=== PATIENT | female | born 1955 | race Caucasian/White ===

== ENCOUNTER → 2017-02-22 | Outpatient (CLI) | payer MEDICARE ==
--- NOTE | 2017-02-23 08:58 | MM ---
Reason for exam: additional evaluation requested from prior study. Last mammogram was performed 1 year ago. History: Patient is postmenopausal, has history of bilateral breast cancer at age 57, and has history of high-risk lesion on a previous biopsy at age 45. Family history of breast cancer in maternal grandmother and breast cancer in mother. Malignant left breast needle localization of both breasts, May 23, 2013. Malignant US LT VAD breast biopsy of the left breast, May 08, 2013. High risk lumpectomy of the left breast, April 19, 2001. Physical Findings: Nurse did not find any significant physical abnormalities on exam. MG Diagnostic Mammo w CAD CHELSEA Bilateral CC and MLO view(s) were taken. Prior study comparison: February 19, 2016, bilateral MG diagnostic mammo w CAD CHELSEA. February 21, 2015, right breast MG follow up RT no charge. The breast tissue is heterogeneously dense. This may lower the sensitivity of mammography. Marked deformity in the left breast. from previous lumpectomy. No suspicious calcifications or mass. These results were verbally communicated with the patient and result sheet given to the patient on 02/22/17. ASSESSMENT: Benign, BI-RAD 2 RECOMMENDATION: Follow-up diagnostic mammogram of both breasts in 1 year.
== END | disposition home or self-care (01) ==
LOC: RADMAMWWP 14:42
PROVIDERS: ATTEND Family Medicine
DX: Z12.31 Encounter for screening mammogram for malignant neoplasm of breast (principal); Z85.3 Personal history of malignant neoplasm of breast

== ENCOUNTER → 2018-03-17 | Outpatient (CLI) | payer MEDICARE ==
--- NOTE | 2018-03-19 09:48 | MM ---
Reason for exam: additional evaluation requested from prior study. Last mammogram was performed 1 year and 1 month ago. History: Patient is postmenopausal, has history of bilateral breast cancer at age 57, and has history of high-risk lesion on a previous biopsy at age 45. Family history of breast cancer in maternal grandmother and breast cancer in mother. Malignant left breast needle localization of both breasts, May 23, 2013. Malignant US LT VAD breast biopsy of the left breast, May 08, 2013. High risk lumpectomy of the left breast, April 19, 2001. Physical Findings: Nurse did not find any significant physical abnormalities on exam. MG Diagnostic Mammo w CAD CHELSEA Bilateral CC and MLO view(s) were taken. Prior study comparison: February 22, 2017, bilateral MG diagnostic mammo w CAD CHELSEA. February 19, 2016, bilateral MG diagnostic mammo w CAD CHELSEA. February 21, 2015, right breast MG follow up RT no charge. The breast tissue is heterogeneously dense. This may lower the sensitivity of mammography. No discrete abnormality. Prominent distortion at incised site left breast. These results were verbally communicated with the patient and result sheet given to the patient on 03/17/18. ASSESSMENT: Benign, BI-RAD 2 RECOMMENDATION: Follow-up diagnostic mammogram of both breasts in 1 year.
== END | disposition home or self-care (01) ==
LOC: RADMAMWWP 14:13
DX: Z08 Encounter for follow-up examination after completed treatment for malignant neoplasm (principal); Z85.3 Personal history of malignant neoplasm of breast
CPT/HCPCS: 77066

== ENCOUNTER 2020-02-26 18:19 | Inpatient (IN) | payer MEDICARE ==
--- NOTE | 2020-02-26 19:58 | ED ---
Recheck HPI - General Source: patient Mode of arrival: ambulatory Limitations: no limitations <Constanza Carrasquillo - Last Filed: 02/27/20 00:27> <Neeta Benavides - Last Filed: 03/02/20 08:23> - General Chief Complaint: Recheck/Abnormal Lab/Rx Stated Complaint: Low blood pressure Time Seen by Provider: 02/26/20 18:57 - History of Present Illness Initial Comments: 64 year-old female patient presents to the emergency department today for evaluation of weakness, confusion, shortness of breath. Patient has been feeli ng unwell for the last couple of days. States that she has been having some confusion, and feels foggy. She does report shortness of breath, occasional cough. Denies sputum production. She has had low-grade fevers around 99. She is also reporting some abdominal discomfort. Denies vomiting or diarrhea. Denies sore throat or congestion. She reports occasional dysuria. Denies urinary frequency or urgency. Denies any recent falls or head injury. Patient denies any recent rash, chest pain, back pain, numbness, tingling, dizziness, weakness, headache, visual changes, or any other complaints. (Constanza Carrasquillo) - Related Data Home Medications Medication Instructions Recorded Confirmed Acetaminophen [Tylenol] 650 mg PO TID@0800,1400,199902/26/20 02/26/20 Atorvastatin Calcium [Lipitor] 40 mg PO HS@199902/26/20 02/26/20 Calcium Carbonate/Vitamin D3 1 tab PO BID@0800,139902/26/20 02/26/20 [Calcium 600-Vit D3 400 Tablet] Chlorhexidine Gluconate [Peridex] 15 ml PO BID@0800,199902/26/20 02/26/20 Enalapril Maleate [Vasotec] 10 mg PO HS@199902/26/20 02/26/20 FLUoxetine HCL [PROzac] 20 mg PO DAILY@79902/26/20 02/26/20 Imipramine [Tofranil] 10 mg PO TID@0800,1400,199902/26/20 02/26/20 Levothyroxine Sodium 200 mcg PO DAILY@79902/26/20 02/26/20 Multivitamins, Thera [Multivitamin 1 tab PO DAILY@79902/26/2002/25/20 (formulary)] Niacin [Niacin ER] 500 mg PO HS@199902/26/20 02/26/20 Nystatin [Nystop] 1 applic TOPICAL BID PRN 02/26/20 02/26/20 Oxybutynin ER [Ditropan Xl] 15 mg PO HS@199902/26/20 02/26/20 Allergies Allergy/AdvReac Type Severity Reaction Status Date / Time No Known Allergies Allergy Verified 02/26/20 22:22 Review of Systems ROS Other: All systems not noted in ROS Statement are negative. <Constanza Carrasquillo - Last Filed: 02/27/20 00:27> ROS Other: All systems not noted in ROS Statement are negative. <Neeta Benavides - Last Filed: 03/02/20 08:23> ROS Statement: Those systems with pertinent positive or pertinent negative responses have been documented in the HPI. Past Medical History Past Medical History: Cancer, Hypertension Additional Past Medical History / Comment(s): closed head injury History of Any Multi-Drug Resistant Organisms: None Reported Additional Past Surgical History / Comment(s): left breast surgery, thyroid removed Past Psychological History: No Psychological Hx Reported Smoking Status: Current every day smoker Past Alcohol Use History: Daily Past Drug Use History: None Reported <Constanza Carrasquillo - Last Filed: 02/27/20 00:27> General Exam Limitations: no limitations General appearance: alert, in no apparent distress, other (This is a well- developed, well-nourished adult female patient in no acute distress. Vital signs upon presentation are temperature 99.5F, pulse 105, respirations 18, blood pressure 122/69, pulse ox 95% on room air.) Eye exam: Present: normal appearance, PERRL, EOMI. Absent: scleral icterus, conjunctival injection, periorbital swelling ENT exam: Present: normal exam, normal oropharynx, mucous membranes moist Respiratory exam: Present: normal lung sounds bilaterally. Absent: respiratory distress, wheezes, rales, rhonchi, stridor Cardiovascular Exam: Present: regular rate, normal rhythm, tachycardia, normal heart sounds. Absent: systolic murmur, diastolic murmur, rubs, gallop, clicks GI/Abdominal exam: Present: soft, tenderness (Generalized tenderness), normal bowel sounds. Absent: distended, guarding, rebound, rigid Neurological exam: Present: alert, oriented X3, CN II-XII intact, other (Left sided paralysis - chronic.) Psychiatric exam: Present: normal affect, normal mood Skin exam: Present: warm, dry, intact, normal color. Absent: rash <Constanza Carrsaquillo - Last Filed: 02/27/20 00:27> Course <Constanza Carrasquillo - Last Filed: 02/27/20 00:27> Vital Signs 02/26/20 02/26/20 02/26/20 18:23 22:00 23:59 Temperature 99.5 F 100.4 F H 98.3 F Pulse Rate 105 H 96 103 H Respiratory 18 19 17 Rate Blood Pressure 122/69 139/74 126/77 O2 Sat by Pulse 95 96 95 Oximetry - Reevaluation(s) Reevaluation #1: 02/26/20 22:01 Patient diagnosed as sepsis at 2200. (Constanza Carrasquillo) Medical Decision Making - Lab Data Result diagrams: 02/26/20 20:30 02/26/20 20:30 - Radiology Data Radiology results: report reviewed, image reviewed <Constanza Carrasquillo - Last Filed: 02/27/20 00:27> - Lab Data Result diagrams: 03/01/20 16:14 03/01/20 16:14 <Neeta Benavides - Last Filed: 03/02/20 08:23> - Medical Decision Making 64 year-old female patient presents to the emergency department today with multiple complaints including confusion, weakness, shortness of breath, and abdominal pain. Physical examination did reveal generalized abdominal tenderness. She is alert and oriented at this time. She does have low-grade fever from 99-100.4F. Labs reviewed and reveal white blood cell count of 26.8, neutrophils 24.6, BUN 37, lactic acid is 2.2, AST mildly elevated at 70, ALT 39. Lipase is 2406. Urinalysis shows 2+ protein, trace ketones, small amount of blood, moderate esterase, 19 white blood cells, rare amorphous sediment, few urine bacteria, hyaline casts 41, many urine mucus. CT abdomen and pelvis was obtained and showed evidence for pancreatitis, there is a large gallstone but no evidence for dilated ducts or cholecystitis. Chest x-ray did show evidence for right lower lobe pneumonia. I did discuss findings and results with the patient. She will be admitted to the hospital, we will provide IV hydration, IV antibiotics which include Levaquin and Zosyn as she does currently live in a long-term care facility. We will obtain ultrasound of the right upper quadrant in the morning to further evaluate the pancreatitis. Patient verbalizes understanding and agrees this plan. (Constanza Carrasquillo) I was available for consultation in the emergency department. The history and physical exam were done by the midlevel provider. I was consulted for this patients care. I reviewed the case with the midlevel provider and based on their presentation of the patient, I agree with the assessment, medical decision making and plan of care as documented. Chart was dictated using [employer] dictation software. Attempts were made to correct any dictation errors however some typographical errors may persist. Patient was seen during the [facility] emergency due to the Covid-19 pandemic. (Neeta Benavides) - Lab Data Lab Results 02/26/20 02/26/20 02/26/20 Range/Units 20:30 20:30 20:30 WBC 26.8 H (3.8-10.6) k/uL RBC 4.63 (3.80-5.40) m/uL Hgb 15.2 (11.4-16.0) gm/dL Hct 47.0 H (34.0-46.0) % MCV 101.6 H (80.0-100.0) fL MCH 32.9 (25.0-35.0) pg MCHC 32.4 (31.0-37.0) g/dL RDW 14.2 (11.5-15.5) % Plt Count 263 (150-450) k/uL Neutrophils % 92 % Lymphocytes % 2 % Monocytes % 4 % Eosinophils % 0 % Basophils % 0 % Neutrophils # 24.6 H (1.3-7.7) k/uL Lymphocytes # 0.6 L (1.0-4.8) k/uL Monocytes # 1.2 H (0-1.0) k/uL Eosinophils # 0.1 (0-0.7) k/uL Basophils # 0.1 (0-0.2) k/uL Macrocytosis Slight PT 10.1 (9.0-12.0) sec INR 1.0 (<1.2) APTT 22.7 (22.0-30.0) sec Sodium (137-145) mmol/L Potassium (3.5-5.1) mmol/L Chloride (98-107) mmol/L Carbon Dioxide (22-30) mmol/L Anion Gap mmol/L BUN (7-17) mg/dL Creatinine (0.52-1.04) mg/dL Est GFR (CKD-EPI)AfAm (>60 ml/min/1.73 sqM) Est GFR (CKD-EPI)NonAf (>60 ml/min/1.73 sqM) Glucose (74-99) mg/dL Lactic Ac Sepsis Rflx Plasma Lactic Acid Anthony (0.7-2.0) mmol/L Calcium (8.4-10.2) mg/dL Total Bilirubin (0.2-1.3) mg/dL AST (14-36) U/L ALT (4-34) U/L Alkaline Phosphatase (38-126) U/L Total Protein (6.3-8.2) g/dL Albumin (3.5-5.0) g/dL Lipase (23-300) U/L Urine Color Yellow Urine Appearance Cloudy H (Clear) Urine pH 5.5 (5.0-8.0) Ur Specific Nada 1.038 H (1.001-1.035) Urine Protein 2+ H (Negative) Urine Glucose (UA) Negative (Negative) Urine Ketones Trace H (Negative) Urine Blood Small H (Negative) Urine Nitrite Negative (Negative) Urine Bilirubin Negative (Negative) Urine Urobilinogen 2.0 (<2.0) mg/dL Ur Leukocyte Esterase Moderate H (Negative) Urine RBC 1 (0-5) /hpf Urine WBC 19 H (0-5) /hpf Ur Squamous Epith Cells 1 (0-4) /hpf Amorphous Sediment Rare H (None) /hpf Urine Bacteria Few H (None) /hpf Hyaline Casts 41 H (0-2) /lpf Urine Mucus Many H (None) /hpf 02/26/20 02/26/20 02/26/20 Range/Units 20:30 20:30 20:30 WBC (3.8-10.6) k/uL RBC (3.80-5.40) m/uL Hgb (11.4-16.0) gm/dL Hct (34.0-46.0) % MCV (80.0-100.0) fL MCH (25.0-35.0) pg MCHC (31.0-37.0) g/dL RDW (11.5-15.5) % Plt Count (150-450) k/uL Neutrophils % % Lymphocytes % % Monocytes % % Eosinophils % % Basophils % % Neutrophils # (1.3-7.7) k/uL Lymphocytes # (1.0-4.8) k/uL Monocytes # (0-1.0) k/uL Eosinophils # (0-0.7) k/uL Basophils # (0-0.2) k/uL Macrocytosis PT (9.0-12.0) sec INR (<1.2) APTT (22.0-30.0) sec Sodium 137 (137-145) mmol/L Potassium 4.2 (3.5-5.1) mmol/L Chloride 104 (98-107) mmol/L Carbon Dioxide 23 (22-30) mmol/L Anion Gap 10 mmol/L BUN 37 H (7-17) mg/dL Creatinine 1.01 (0.52-1.04) mg/dL Est GFR (CKD-EPI)AfAm 67 (>60 ml/min/1.73 sqM) Est GFR (CKD-EPI)NonAf 58 (>60 ml/min/1.73 sqM) Glucose 156 H (74-99) mg/dL Lactic Ac Sepsis Rflx Plasma Lactic Acid Anthony 2.2 H* (0.7-2.0) mmol/L Calcium 9.6 (8.4-10.2) mg/dL Total Bilirubin 0.9 (0.2-1.3) mg/dL AST 70 H (14-36) U/L ALT 39 H (4-34) U/L Alkaline Phosphatase 126 (38-126) U/L Total Protein 6.7 (6.3-8.2) g/dL Albumin 4.1 (3.5-5.0) g/dL Lipase 2406 H (23-300) U/L Urine Color Urine Appearance (Clear) Urine pH (5.0-8.0) Ur Specific Nada (1.001-1.035) Urine Protein (Negative) Urine Glucose (UA) (Negative) Urine Ketones (Negative) Urine Blood (Negative) Urine Nitrite (Negative) Urine Bilirubin (Negative) Urine Urobilinogen (<2.0) mg/dL Ur Leukocyte Esterase (Negative) Urine RBC (0-5) /hpf Urine WBC (0-5) /hpf Ur Squamous Epith Cells (0-4) /hpf Amorphous Sediment (None) /hpf Urine Bacteria (None) /hpf Hyaline Casts (0-2) /lpf Urine Mucus (None) /hpf 02/26/20 Range/Units 21:47 WBC (3.8-10.6) k/uL RBC (3.80-5.40) m/uL Hgb (11.4-16.0) gm/dL Hct (34.0-46.0) % MCV (80.0-100.0) fL MCH (25.0-35.0) pg MCHC (31.0-37.0) g/dL RDW (11.5-15.5) % Plt Count (150-450) k/uL Neutrophils % % Lymphocytes % % Monocytes % % Eosinophils % % Basophils % % Neutrophils # (1.3-7.7) k/uL Lymphocytes # (1.0-4.8) k/uL Monocytes # (0-1.0) k/uL Eosinophils # (0-0.7) k/uL Basophils # (0-0.2) k/uL Macrocytosis PT (9.0-12.0) sec INR (<1.2) APTT (22.0-30.0) sec Sodium (137-145) mmol/L Potassium (3.5-5.1) mmol/L Chloride (98-107) mmol/L Carbon Dioxide (22-30) mmol/L Anion Gap mmol/L BUN (7-17) mg/dL Creatinine (0.52-1.04) mg/dL Est GFR (CKD-EPI)AfAm (>60 ml/min/1.73 sqM) Est GFR (CKD-EPI)NonAf (>60 ml/min/1.73 sqM) Glucose (74-99) mg/dL Lactic Ac Sepsis Rflx Y Plasma Lactic Acid Anthony (0.7-2.0) mmol/L Calcium (8.4-10.2) mg/dL Total Bilirubin (0.2-1.3) mg/dL AST (14-36) U/L ALT (4-34) U/L Alkaline Phosphatase (38-126) U/L Total Protein (6.3-8.2) g/dL Albumin (3.5-5.0) g/dL Lipase (23-300) U/L Urine Color Urine Appearance (Clear) Urine pH (5.0-8.0) Ur Specific Nada (1.001-1.035) Urine Protein (Negative) Urine Glucose (UA) (Negative) Urine Ketones (Negative) Urine Blood (Negative) Urine Nitrite (Negative) Urine Bilirubin (Negative) Urine Urobilinogen (<2.0) mg/dL Ur Leukocyte Esterase (Negative) Urine RBC (0-5) /hpf Urine WBC (0-5) /hpf Ur Squamous Epith Cells (0-4) /hpf Amorphous Sediment (None) /hpf Urine Bacteria (None) /hpf Hyaline Casts (0-2) /lpf Urine Mucus (None) /hpf - Radiology Data Two-view x-ray of the chest is obtained. Report was reviewed in its entirety. Impression by Dr. Chamorro shows right lower lobe pneumonia that appears new compared to old exam. No heart failure seen. CT abdomen and pelvis with contrast obtained. Report is reviewed in its entirety. Impression by Dr. Chamorro shows large gallstone probably not changed compared to old exam. No dilated ducts. There is extensive inflammatory changes and fluid around the pancreas consistent with acute pancreatitis which is a significant change compared to old exam. There is clearing of the wall thickening and inflammatory changes around the transverse colon compared to old exam. There is colonic diverticulosis without signs of diverticulitis. (Constanza Carrasquillo) Disposition Decision to Admit Reason: Admit from EC Decision Date: 02/26/20 Decision Time: 23:07 <Constanza Carrasquillo - Last Filed: 02/27/20 00:27> <Neeta Benavides - Last Filed: 03/02/20 08:23> Clinical Impression: Pancreatitis, Pneumonia, Urinary tract infection Disposition: ADMITTED IP TO THIS [facility] Condition: Serious
[2020-02-26 20:40] LABS: Basophils # (A) 0.1 k/uL (0-0.2); Basophils % (A) 0 %; Eosinophils # (A) 0.1 k/uL (0-0.7); Eosinophils % (A) 0 %; HGB 15.2 gm/dL (11.4-16.0); Lymphocytes # (A) 0.6 k/uL (1.0-4.8); Lymphocytes % (A) 2 %; MCH 32.9 pg (25.0-35.0); MCHC 32.4 g/dL (31.0-37.0); MCV 101.6 fL (80.0-100.0); Macrocytosis Slight; Mean Platelet Volume 8.3; Monocytes # (A) 1.2 k/uL (0-1.0); Monocytes % (A) 4 %; Neutrophils # (A) 24.6 k/uL (1.3-7.7); Neutrophils % (A) 92 %; Platelet Count 263 k/uL (150-450); RBC 4.63 m/uL (3.80-5.40); RDW 14.2 % (11.5-15.5); WBC 26.8 k/uL (3.8-10.6)
[2020-02-26 20:47] LABS: Albumin 4.1 g/dL (3.5-5.0); Calcium 9.6 mg/dL (8.4-10.2); Potassium 4.2 mmol/L (3.5-5.1); Total Bilirubin 0.9 mg/dL (0.2-1.3); Total Protein 6.7 g/dL (6.3-8.2)
[2020-02-26] MEDS: SODIUM CHLORIDE 0.9% 500 ML 500 ML IV SCH (20:47)
[2020-02-26 20:54] LABS: Partial Thromboplastin Time 22.7 sec (22.0-30.0); Prothrombin Time 10.1 sec (9.0-12.0)
--- NOTE | 2020-02-26 21:47 | XR ---
EXAMINATION TYPE: XR chest 2V DATE OF EXAM: 02/26/2020 COMPARISON: 05/19/2013 HISTORY: Fever TECHNIQUE: FINDINGS: There is some patchy airspace infiltrate in the right lower lobe. The other lung peña are clear. There is poor inspiration. There is no heart failure. There is no pleural effusion. There are no hilar masses. There are chest leads. IMPRESSION: There is right lower lobe pneumonia that appears new compared to old exam. No heart failu re seen.
[2020-02-26 21:59] LABS: Amorphous Sediment,Urine Rare /hpf; Appearance,Urine Cloudy (Clear); Bacteria,Urine Few /hpf; Bilirubin,Urine Negative (Negative); Blood,Urine Small (Negative); Color,Urine Yellow; Glucose,Urine (UA) Negative (Negative); Hyaline Casts,Urine 41 /lpf (0-2); Ketones,Urine Trace (Negative); Leukocyte Esterase,Urine Moderate (Negative); Mucus,Urine Many /hpf; Nitrite,Urine Negative (Negative); PH, Urine 5.5 (5.0-8.0); Protein,Urine 2+ (Negative); RBC,Urine 1 /hpf (0-5); Specific Gravity,Urine 1.038 (1.001-1.035); Squamous Epithelial Cell,Urine 1 /hpf (0-4); WBC,Urine 19 /hpf (0-5)
[2020-02-26] MEDS ORDERED: SODIUM CHLORIDE 0.9% 1,000 ML IV ONE (22:00)
[2020-02-26] MEDS ORDERED: ACETAMINOPHEN TAB 325 MG TAB PO STA (22:00)
--- NOTE | 2020-02-26 22:16 | CT ---
EXAMINATION TYPE: CT abdomen pelvis w con DATE OF EXAM: 02/26/2020 COMPARISON: 01/10/2010 HISTORY: Abdominal pain, patient poor historian. CT DLP: 1701.4 mGycm Automated exposure control for dose reduction was used. CONTRAST: Performed with IV Contrast, patient injected with 80ml mL of Isovue 300. There is some patchy infiltrate and atelectasis at the right lung base. Heart size is fairly normal. There is small right pleural effusion. Liver shows no focal defect. There is 3 x 2 cm rounded density that appears to be within the gallbladder that could be a gallstone. The bile ducts are not dilated. There is extensive fat stranding around the pancreas. There is fluid in the anterior pararenal space bilaterally. There is no adrenal mass. There is 1 cm cortical cyst upper pole left kidney. Bladder distends smooth ly. There is no inguinal hernia. There are multiple sigmoid diverticula. I see no sign of diverticuli tis. Kidneys show satisfactory contrast opacification. There is no hydronephrosis. There are multiple surgical clips at the cecum. There is apparent resection of some of the ascending colon. Small bowel is not dilated. Lumbar vertebra have normal alignment. There is vacuum disc at L4-5. There is no compression fracture . The bony pelvis appears intact. IMPRESSION: Large gallstone probably not changed compared to old exam. No dilated ducts. Extensive inflammatory changes and fluid around the pancreas consistent with acute pancreatitis which is a significant change compared to old exam. There is clearing of the wall thickening and inflammat ory changes around the transverse colon compared to old exam. There is colonic diverticulosis without sign of diverticulitis.
[2020-02-26] MEDS ORDERED: LEVOFLOXACIN 750MG-D5W PMX 750 MG in DEXTROSE/WATER 1 150ML.BAG IVPB STA (22:22)
[2020-02-26] MEDS ORDERED: PIPERACILLIN-TAZOBACTAM 3.375 GM in SODIUM CHLORIDE 0.9% 100 ML IVPB STA (22:22)
[2020-02-26] MEDS ORDERED: LEVOFLOXACIN 750MG-D5W PMX 750 MG in DEXTROSE/WATER 1 150ML.BAG IVPB SCH (22:30)
[2020-02-26] MEDS: SODIUM CHLORIDE 0.9% 1,000 ML IV SCH (22:51)
[2020-02-26] MEDS ORDERED: NALOXONE 0.4 MG/ML 1 ML VIAL IV PRN (23:05)
[2020-02-26] MEDS ORDERED: ACETAMINOPHEN TAB 325 MG TAB PO PRN (23:05)
[2020-02-27] MEDS: PIPERACILLIN-TAZOBACTAM 3.375 GM in SODIUM CHLORIDE 0.9% 100 ML IVPB SCH ×4 (00:57→23:44)
[2020-02-27 07:00] LABS: Glucose,Whole Blood 127 mg/dL (75-99)
[2020-02-27 07:36] LABS: Basophils % (A) 0 %; Eosinophils # (A) 0.1 k/uL (0-0.7); Eosinophils % (A) 0 %; HCT 44.6 % (34.0-46.0); HGB 14.8 gm/dL (11.4-16.0); Lymphocytes # (A) 0.8 k/uL (1.0-4.8); Lymphocytes % (A) 6 %; MCHC 33.1 g/dL (31.0-37.0); Macrocytosis Slight; Mean Platelet Volume 8.1; Monocytes # (A) 0.8 k/uL (0-1.0); Monocytes % (A) 6 %; Neutrophils # (A) 11.3 k/uL (1.3-7.7); Neutrophils % (A) 86 %; Platelet Count 226 k/uL (150-450); RBC 4.33 m/uL (3.80-5.40); RDW 14.1 % (11.5-15.5); WBC 13.2 k/uL (3.8-10.6)
[2020-02-27 08:00] LABS: ALT 32 U/L (4-34); AST 49 U/L (14-36); African American GFR (CKD) >90 (>60 ml/min/1.73 sqM); Albumin 3.3 g/dL (3.5-5.0); Alkaline Phosphatase 96 U/L (38-126); Anion Gap 7 mmol/L; Blood Urea Nitrogen 40 mg/dL (7-17); Calcium 8.2 mg/dL (8.4-10.2); Carbon Dioxide 22 mmol/L (22-30); Chloride 109 mmol/L (98-107); Glucose 129 mg/dL (74-99); Non-African American GFR(CKD) 85 (>60 ml/min/1.73 sqM); Potassium 3.8 mmol/L (3.5-5.1); Sodium 138 mmol/L (137-145); Total Bilirubin 0.9 mg/dL (0.2-1.3); Total Protein 5.8 g/dL (6.3-8.2)
--- NOTE | 2020-02-27 09:03 | US ---
EXAMINATION TYPE: US abdomen limited DATE OF EXAM: 02/27/2020 COMPARISON: CT 02/26/2020 CLINICAL HISTORY: 64-year-old Pancreatitis; Cholelithiasis. TECHNIQUE: Multiple images of the right upper quadrant are obtained. Findings EXAM MEASUREMENTS: Liver Length: 14.2 Gallbladder Wall: 0.2m CBD: 0.8mm Right Kidney: 9.9 x 5.1 x 5.4 Integration Solution Architect notes: Technically difficult exam performed portably on patient unable to cooperate. Pancreas: not visualized due to midline bowel gas Liver: heterogeneous echotexture Gallbladder: large stone, only a small amount of lumen seen. Evidence for sonographic Lemus's sign: Yes CBD: measures 0.8 cm Right Kidney: No hydronephrosis. IMPRESSION: 1. Technically limited exam due to patient's inability to cooperate and portable technique. 2. Large gallstone with positive sonographic Lemus sign. Further clinical correlation for any suspec chayo acute cholecystitis. 3. The pancreas is obscured by bowel gas. The changes of acute pancreatitis seen on recent CT are not well demonstrated by ultrasound. 4. Mildly dilated bile duct measuring up to 8 mm. Correlate with alkaline phosphatase and bilirubin l evels. 5. Heterogeneous echotexture of the liver may be on a technical basis or could reflect nonspecific he patocellular disease.
[2020-02-27] MEDS ORDERED: NYSTATIN 100,000 UNIT/GM POWD 15 GM TOPICAL PRN (10:54)
[2020-02-27 11:41] LABS: Glucose,Whole Blood 143 mg/dL (75-99)
--- NOTE | 2020-02-27 12:12 | P.GSCN ---
History of Present Illness Consult date: 02/27/20 Reason for Consult: Abdominal pain, abnormal gallbladder ultrasound History of present illness: This is a 64-year-old female who is admitted to Dr. Chavis service patient minute for abdominal pain. Patient's apparently has had pericarditis for some time. Her gallbladder ultrasound is abnormal. With evidence of a large gallstone. Past Medical History Past Medical History: Cancer, Hypertension Additional Past Medical History / Comment(s): closed head injury History of Any Multi-Drug Resistant Organisms: None Reported Additional Past Surgical History / Comment(s): left breast surgery, thyroid removed Past Psychological History: No Psychological Hx Reported Smoking Status: Current every day smoker Past Alcohol Use History: Daily Past Drug Use History: None Reported Medications and Allergies Home Medications Medication Instructions Recorded Confirmed Type Acetaminophen [Tylenol] 650 mg PO TID@0800,1400,199902/26/20 02/26/20 History Atorvastatin Calcium [Lipitor] 40 mg PO HS@199902/26/20 02/26/20 History Calcium Carbonate/Vitamin D3 1 tab PO BID@0800,1400 02/26/20 02/26/20 History [Calcium 600-Vit D3 400 Tablet] Chlorhexidine Gluconate [Peridex] 15 ml PO BID@0800,199902/26/20 02/26/20 History Enalapril Maleate [Vasotec] 10 mg PO HS@199902/26/20 02/26/20 History FLUoxetine HCL [PROzac] 20 mg PO DAILY@0802/26/20 02/26/20 History Imipramine [Tofranil] 10 mg PO TID@0800,1400,199902/26/20 02/26/20 History Levothyroxine Sodium 200 mcg PO DAILY@79902/26/20 02/26/20 History Multivitamins, Thera [Multivitamin 1 tab PO DAILY@79902/26/20 02/26/20 History (formulary)] Niacin [Niacin ER] 500 mg PO HS@199902/26/20 02/26/20 History Nystatin [Nystop] 1 applic TOPICAL BID PRN 02/26/20 02/26/20 History Oxybutynin ER [Ditropan Xl] 15 mg PO HS@199902/26/20 02/26/20 History Allergies Allergy/AdvReac Type Severity Reaction Status Date / Time No Known Allergies Allergy Verified 02/26/20 22:22 Surgical - Exam Vital Signs Temp Pulse Resp BP Pulse Ox 99.5 F 105 H 18 122/69 95 02/26/20 18:23 02/26/20 18:23 02/26/20 18:23 02/26/20 18:23 02/26/20 18:23 - General well developed, well nourished, no distress - Eyes PERRL - ENT normal pinna - Neck no masses - Respiratory normal expansion - Cardiovascular Rhythm: regular - Abdomen Mild tenderness there is no rebound or guarding. Abdomen: soft Results - Labs 02/27/20 07:12 02/27/20 07:12 Abnormal Lab Results - Last 24 Hours (Table) 02/26/20 02/26/20 02/26/20 Range/Units 20:30 20:30 20:30 WBC 26.8 H (3.8-10.6) k/uL Hct 47.0 H (34.0-46.0) % MCV 101.6 H (80.0-100.0) fL Neutrophils # 24.6 H (1.3-7.7) k/uL Lymphocytes # 0.6 L (1.0-4.8) k/uL Monocytes # 1.2 H (0-1.0) k/uL Chloride (98-107) mmol/L BUN 37 H (7-17) mg/dL Glucose 156 H (74-99) mg/dL POC Glucose (mg/dL) (75-99) mg/dL Plasma Lactic Acid Anthony (0.7-2.0) mmol/L Calcium (8.4-10.2) mg/dL AST 70 H (14-36) U/L ALT 39 H (4-34) U/L Total Protein (6.3-8.2) g/dL Albumin (3.5-5.0) g/dL Lipase (23-300) U/L Urine Appearance Cloudy H (Clear) Ur Specific [place] 1.038 H (1.001-1.035) Urine Protein 2+ H (Negative) Urine Ketones Trace H (Negative) Urine Blood Small H (Negative) Ur Leukocyte Esterase Moderate H (Negative) Urine WBC 19 H (0-5) /hpf Amorphous Sediment Rare H (None) /hpf Urine Bacteria Few H (None) /hpf Hyaline Casts 41 H (0-2) /lpf Urine Mucus Many H (None) /hpf 02/26/20 02/26/20 02/27/20 Range/Units 20:30 20:30 06:57 WBC (3.8-10.6) k/uL Hct (34.0-46.0) % MCV (80.0-100.0) fL Neutrophils # (1.3-7.7) k/uL Lymphocytes # (1.0-4.8) k/uL Monocytes # (0-1.0) k/uL Chloride (98-107) mmol/L BUN (7-17) mg/dL Glucose (74-99) mg/dL POC Glucose (mg/dL) 127 H (75-99) mg/dL Plasma Lactic Acid Anthony 2.2 H* (0.7-2.0) mmol/L Calcium (8.4-10.2) mg/dL AST (14-36) U/L ALT (4-34) U/L Total Protein (6.3-8.2) g/dL Albumin (3.5-5.0) g/dL Lipase 2406 H (23-300) U/L Urine Appearance (Clear) Ur Specific [place] (1.001-1.035) Urine Protein (Negative) Urine Ketones (Negative) Urine Blood (Negative) Ur Leukocyte Esterase (Negative) Urine WBC (0-5) /hpf Amorphous Sediment (None) /hpf Urine Bacteria (None) /hpf Hyaline Casts (0-2) /lpf Urine Mucus (None) /hpf 02/27/20 02/27/20 02/27/20 Range/Units 07:12 07:12 11:39 WBC 13.2 H (3.8-10.6) k/uL Hct (34.0-46.0) % MCV 103.0 H (80.0-100.0) fL Neutrophils # 11.3 H (1.3-7.7) k/uL Lymphocytes # 0.8 L (1.0-4.8) k/uL Monocytes # (0-1.0) k/uL Chloride 109 H (98-107) mmol/L BUN 40 H (7-17) mg/dL Glucose 129 H (74-99) mg/dL POC Glucose (mg/dL) 143 H (75-99) mg/dL Plasma Lactic Acid Anthony (0.7-2.0) mmol/L Calcium 8.2 L (8.4-10.2) mg/dL AST 49 H (14-36) U/L ALT (4-34) U/L Total Protein 5.8 L (6.3-8.2) g/dL Albumin 3.3 L (3.5-5.0) g/dL Lipase 1185 H (23-300) U/L Urine Appearance (Clear) Ur Specific [place] (1.001-1.035) Urine Protein (Negative) Urine Ketones (Negative) Urine Blood (Negative) Ur Leukocyte Esterase (Negative) Urine WBC (0-5) /hpf Amorphous Sediment (None) /hpf Urine Bacteria (None) /hpf Hyaline Casts (0-2) /lpf Urine Mucus (None) /hpf Microbiology - Last 24 Hours (Table) 02/26/20 20:30 Urine Culture - Preliminary Urine,Voided Diabetes panel 02/26/20 02/27/20 Range/Units 20:30 07:12 Sodium 137 138 (137-145) mmol/L Potassium 4.2 3.8 (3.5-5.1) mmol/L Chloride 104 109 H (98-107) mmol/L Carbon Dioxide 23 22 (22-30) mmol/L BUN 37 H 40 H (7-17) mg/dL Creatinine 1.01 0.74 (0.52-1.04) mg/dL Glucose 156 H 129 H (74-99) mg/dL Calcium 9.6 8.2 L (8.4-10.2) mg/dL AST 70 H 49 H (14-36) U/L ALT 39 H 32 (4-34) U/L Alkaline Phosphatase 126 96 (38-126) U/L Total Protein 6.7 5.8 L (6.3-8.2) g/dL Albumin 4.1 3.3 L (3.5-5.0) g/dL Calcium panel 02/26/20 02/27/20 Range/Units 20:30 07:12 Calcium 9.6 8.2 L (8.4-10.2) mg/dL Albumin 4.1 3.3 L (3.5-5.0) g/dL Pituitary panel 02/26/20 02/27/20 Range/Units 20:30 07:12 Sodium 137 138 (137-145) mmol/L Potassium 4.2 3.8 (3.5-5.1) mmol/L Chloride 104 109 H (98-107) mmol/L Carbon Dioxide 23 22 (22-30) mmol/L BUN 37 H 40 H (7-17) mg/dL Creatinine 1.01 0.74 (0.52-1.04) mg/dL Glucose 156 H 129 H (74-99) mg/dL Calcium 9.6 8.2 L (8.4-10.2) mg/dL Adrenal panel 02/26/20 02/27/20 Range/Units 20:30 07:12 Sodium 137 138 (137-145) mmol/L Potassium 4.2 3.8 (3.5-5.1) mmol/L Chloride 104 109 H (98-107) mmol/L Carbon Dioxide 23 22 (22-30) mmol/L BUN 37 H 40 H (7-17) mg/dL Creatinine 1.01 0.74 (0.52-1.04) mg/dL Glucose 156 H 129 H (74-99) mg/dL Calcium 9.6 8.2 L (8.4-10.2) mg/dL Total Bilirubin 0.9 0.9 (0.2-1.3) mg/dL AST 70 H 49 H (14-36) U/L ALT 39 H 32 (4-34) U/L Alkaline Phosphatase 126 96 (38-126) U/L Total Protein 6.7 5.8 L (6.3-8.2) g/dL Albumin 4.1 3.3 L (3.5-5.0) g/dL Assessment and Plan Assessment: Gretchen Farley Gallstone Patient will be scheduled for elective cholecystectomy once her pancreatitis has been resolved.
[2020-02-27] MEDS: IMIPRAMINE 10 MG TAB PO SCH ×2 (14:13→21:34)
[2020-02-27 17:25] LABS: Glucose,Whole Blood 135 mg/dL (75-99)
[2020-02-27] MEDS: SODIUM CHLORIDE 0.9% 1,000 ML IV SCH ×2 (19:13→19:14)
--- NOTE | 2020-02-27 19:45 | HP ---
HISTORY AND PHYSICAL CHIEF COMPLAINT: Weakness and confusion with shortness of breath. HISTORY OF PRESENT ILLNESS: This 64-year-old white female was a former patient of [employer] [employer] [facility] [employer] [facility] [employer]. We have not seen her since May. She was brought in with malaise, weakness, confusion and shortness of breath. She denied any fever or chills. She also was complaining of some abdominal pain. In the emergency room, her workup revealed a temperature of 100.4 and white count of 26,800 with a hemoglobin of 15.2. Platelets were normal. Urine demonstrated moderate leukocyte esterase and WBCs. There were hyaline casts present as well. Electrolytes were normal and BUN was 37 and creatinine 1.01. Blood sugar was 156. Lactic acid was 2.2. Review of systems is difficult because she has encephalopathy. 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 In the emergency room, there was also evidence of pancreatitis. Her CT of the abdomen demonstrated a gallstone with inflammation of the pancreas. Chest x-ray suggested that she may have minimal right lower lobe pneumonitis. EKG was unremarkable. Past medical history, family history, and personal and social histories are not known. She is NOT ALLERGIC TO ANY MEDICATION. According to her MAR, she has been on Tylenol 650, Prozac 20 mg a day, Tofranil 10 mg t.i.d., levothyroxine 0.2 mg, lisinopril 20 mg, nystatin powder twice a day, oxybutynin 15 mg at bedtime. PHYSICAL EXAMINATION: Temperature was 100.4 with a pulse of 105, respirations of 19 and blood pressure 122/69. In general she appeared to be slightly overweight and in no acute distress. Head, ears, eyes, nose, mouth and throat were normal. The chest demonstrated occasional rales. Cardiac exam demonstrated sinus rhythm and no murmurs or extra sounds. Abdomen was slightly improved, protuberant, soft, and she seemed to have some mild generalized tenderness to palpation. Bowel sounds were present. Extremities were normal. Neurologically she had left hemiparesis. Speech was slightly impaired. She is admitted to the hospital with the diagnoses: 1. Fever. 2. Right lower lobe pneumonitis. 3. Urinary tract infection. 4. Pancreatitis. 5. Cholelithiasis. 6. Status post cerebral trauma with left hemiparesis. PLAN: 1. Bed rest. 2. IV fluids. 3. Appropriate cultures. 4. Consult with Infectious Disease. MMROS / LUIS ENRIQUEN: [id number] /
--- NOTE | 2020-02-27 20:00 | PN ---
PROGRESS NOTE CHIEF COMPLAINT: Fever, pneumonitis, urinary tract infection and pancreatitis. HISTORY OF PRESENT ILLNESS: This lady seems stable. It is difficult to get a history as to how she is feeling. PHYSICAL EXAMINATION: Vital signs are normal. She is not febrile at this time. She seems to be awake and alert. Chest is clear. Cardiac exam is normal. Abdomen is soft and nontender. Paralysis is the same on the left. IMPRESSION: 1. Fever of unknown origin. 2. Pneumonitis. 3. Urinary tract infection. 4. Pancreatitis. 5. Cholelithiasis. PLAN: 1. Continue with IV fluids. 2. Infectious disease consult. 3. Advance diet to regular. MMODL / IJN: [id number] /
[2020-02-27 20:07] LABS: Glucose,Whole Blood 169 mg/dL (75-99)
[2020-02-27] MEDS: LEVOFLOXACIN 750MG-D5W PMX 750 MG in DEXTROSE/WATER 1 150ML.BAG IVPB SCH (20:44)
[2020-02-27] MEDS: OXYBUTYNIN 15 MG TAB.ER.24 PO SCH (20:47)
[2020-02-27] MEDS: lisinopriL 20 MG TAB PO SCH (20:47)
--- NOTE | 2020-02-28 00:01 | P.CONS ---
History of Present Illness - Reason for Consult Consult date: 02/27/20 urinary tract infection and possible cholecystitis Requesting physician: Taran Chavis - Chief Complaint not feeling well abdominal pain x few days - History of Present Illness patient is 64 year female presented to the ER yesterday she complains of generalized not feeling well feeling foggy and abdominal discomfort patient still has been going on for a few days before she was in the hospital patient abdominal pain is mostly in the upper abdominal area and describing it to be more of a sharp at times dull aching about 5-6 out of 10 and no radiation is felt nauseated but no vomiting denies any diarrhea did have a low-grade fever no chest pain shortness of breath or cough. The symptom the patient was evaluated by the ER physician on arrival to the but to 100.4 patient did have elevated white count of 26,000, CT of abdominal pelvis was suggestive of large gallstone and pancreatitis and ultrasound was suspicious for cholecystitis patient also matias ve a positive UA but not significant urinary symptoms patient was started on Zosyn alone but has been admitted to the hospital infectious disease was consulted for further management of antibiotic therapy Review of Systems Positive point has been mentioned in the HPI rest of the systems are negative Past Medical History Past Medical History: Cancer, Hypertension Additional Past Medical History / Comment(s): closed head injury History of Any Multi-Drug Resistant Organisms: None Reported Additional Past Surgical History / Comment(s): left breast surgery, thyroid removed Past Psychological History: No Psychological Hx Reported Smoking Status: Current every day smoker Past Alcohol Use History: Daily Past Drug Use History: None Reported Medications and Allergies Home Medications Medication Instructions Recorded Confirmed Type Acetaminophen [Tylenol] 650 mg PO TID@0800,1399,199902/26/20 02/26/20 History Atorvastatin Calcium [Lipitor] 40 mg PO HS@199902/26/20 02/26/20 History Calcium Carbonate/Vitamin D3 1 tab PO BID@0800,1400 02/26/20 02/26/20 History [Calcium 600-Vit D3 400 Tablet] Chlorhexidine Gluconate [Peridex] 15 ml PO BID@799,199902/26/20 02/26/20 History Enalapril Maleate [Vasotec] 10 mg PO HS@199902/26/20 02/26/20 History FLUoxetine HCL [PROzac] 20 mg PO DAILY@0802/26/20 02/26/20 History Imipramine [Tofranil] 10 mg PO TID@0800,1400,199902/26/20 02/26/20 History Levothyroxine Sodium 200 mcg PO DAILY@0800 02/26/20 02/26/20 History Multivitamins, Thera [Multivitamin 1 tab PO DAILY@0800 02/26/20 02/26/20 History (formulary)] Niacin [Niacin ER] 500 mg PO HS@199902/26/20 02/26/20 History Nystatin [Nystop] 1 applic TOPICAL BID PRN 02/26/20 02/26/20 History Oxybutynin ER [Ditropan Xl] 15 mg PO HS@199902/26/20 02/26/20 History Allergies Allergy/AdvReac Type Severity Reaction Status Date / Time No Known Allergies Allergy Verified 02/26/20 22:22 Physical Exam Vitals: Vital Signs Temp Pulse Pulse Resp BP BP Pulse Ox 02/27/20 08:00 88 18 02/27/20 06:54 98.7 F 88 18 148/81 92 L 02/27/20 00:41 98.4 F 95 28 H 109/73 93 L 02/26/20 23:59 98.3 F 103 H 17 126/77 95 02/26/20 22:00 100.4 F H 96 19 139/74 96 02/26/20 18:23 99.5 F 105 H 18 122/69 95 Intake and Output 02/26/20 02/27/20 02/27/20 22:59 06:59 14:59 Output Total 300 Balance -300 Output: Urine 300 Other: Weight 84.368 kg 84.368 kg GENERAL DESCRIPTION: Lorri female lying in bed, no distress. No tachypnea or accessory muscle of respiration use. HEENT: Shows Pallor , no scleral icterus. Oral mucous membrane is dry. No pharyngeal erythema or thrush NECK: Trachea central, no thyromegaly. LUNGS: Unlabored breathing. Clear to auscultation anteriorly. No wheeze or crackle. HEART: S1, S2, regular rate and rhythm. No loud murmur ABDOMEN: Soft, mild upper abdominal tenderness , no guarding or rigidity, no organomegaly EXTREMITIES: No edema of feet. SKIN: No rash, no masses palpable. NEUROLOGICAL: The patient is awake, alert, oriented x2, mood and affect normal. Results CBC & Chem 7: 02/27/20 07:12 02/27/20 07:12 Labs: Abnormal Lab Results - Last 24 Hours (Table) 02/26/20 02/26/20 02/26/20 Range/Units 20:30 20:30 20:30 WBC 26.8 H (3.8-10.6) k/uL Hct 47.0 H (34.0-46.0) % MCV 101.6 H (80.0-100.0) fL Neutrophils # 24.6 H (1.3-7.7) k/uL Lymphocytes # 0.6 L (1.0-4.8) k/uL Monocytes # 1.2 H (0-1.0) k/uL Chloride (98-107) mmol/L BUN 37 H (7-17) mg/dL Glucose 156 H (74-99) mg/dL POC Glucose (mg/dL) (75-99) mg/dL Plasma Lactic Acid Anthony (0.7-2.0) mmol/L Calcium (8.4-10.2) mg/dL AST 70 H (14-36) U/L ALT 39 H (4-34) U/L Total Protein (6.3-8.2) g/dL Albumin (3.5-5.0) g/dL Lipase (23-300) U/L Urine Appearance Cloudy H (Clear) Ur Specific [place] 1.038 H (1.001-1.035) Urine Protein 2+ H (Negative) Urine Ketones Trace H (Negative) Urine Blood Small H (Negative) Ur Leukocyte Esterase Moderate H (Negative) Urine WBC 19 H (0-5) /hpf Amorphous Sediment Rare H (None) /hpf Urine Bacteria Few H (None) /hpf Hyaline Casts 41 H (0-2) /lpf Urine Mucus Many H (None) /hpf 02/26/20 02/26/20 02/27/20 Range/Units 20:30 20:30 06:57 WBC (3.8-10.6) k/uL Hct (34.0-46.0) % MCV (80.0-100.0) fL Neutrophils # (1.3-7.7) k/uL Lymphocytes # (1.0-4.8) k/uL Monocytes # (0-1.0) k/uL Chloride (98-107) mmol/L BUN (7-17) mg/dL Glucose (74-99) mg/dL POC Glucose (mg/dL) 127 H (75-99) mg/dL Plasma Lactic Acid Anthony 2.2 H* (0.7-2.0) mmol/L Calcium (8.4-10.2) mg/dL AST (14-36) U/L ALT (4-34) U/L Total Protein (6.3-8.2) g/dL Albumin (3.5-5.0) g/dL Lipase 2406 H (23-300) U/L Urine Appearance (Clear) Ur Specific [place] (1.001-1.035) Urine Protein (Negative) Urine Ketones (Negative) Urine Blood (Negative) Ur Leukocyte Esterase (Negative) Urine WBC (0-5) /hpf Amorphous Sediment (None) /hpf Urine Bacteria (None) /hpf Hyaline Casts (0-2) /lpf Urine Mucus (None) /hpf 02/27/20 02/27/20 02/27/20 Range/Units 07:12 07:12 11:39 WBC 13.2 H (3.8-10.6) k/uL Hct (34.0-46.0) % MCV 103.0 H (80.0-100.0) fL Neutrophils # 11.3 H (1.3-7.7) k/uL Lymphocytes # 0.8 L (1.0-4.8) k/uL Monocytes # (0-1.0) k/uL Chloride 109 H (98-107) mmol/L BUN 40 H (7-17) mg/dL Glucose 129 H (74-99) mg/dL POC Glucose (mg/dL) 143 H (75-99) mg/dL Plasma Lactic Acid Anthony (0.7-2.0) mmol/L Calcium 8.2 L (8.4-10.2) mg/dL AST 49 H (14-36) U/L ALT (4-34) U/L Total Protein 5.8 L (6.3-8.2) g/dL Albumin 3.3 L (3.5-5.0) g/dL Lipase 1185 H (23-300) U/L Urine Appearance (Clear) Ur Specific [place] (1.001-1.035) Urine Protein (Negative) Urine Ketones (Negative) Urine Blood (Negative) Ur Leukocyte Esterase (Negative) Urine WBC (0-5) /hpf Amorphous Sediment (None) /hpf Urine Bacteria (None) /hpf Hyaline Casts (0-2) /lpf Urine Mucus (None) /hpf Microbiology - Last 24 Hours (Table) 02/26/20 20:30 Urine Culture - Preliminary Urine,Voided Assessment and Plan Assessment: 1- patient presented to hospital with sepsis in this patient did have a fever and elevated white count and tachycardia so slightly acute cholecystitis with a complaint of gallstone pancreatitis and will need to cover for enteric gram- negative with a likely pathogen 2- positive UA with a question of asymptomatic bacteriuria the patient denies significant urinary symptoms (1) Sepsis Current Visit: Yes Status: Acute Code(s): A41.9 - SEPSIS, UNSPECIFIED ORGANISM SNOMED Code(s): 18823196 (2) Gallstone pancreatitis Current Visit: Yes Status: Acute Code(s): K85.10 - BILIARY ACUTE PANCREATITIS WITHOUT NECROSIS OR INFECTION SNOMED Code(s): 81925471 (3) Cholecystitis Current Visit: Yes Status: Acute Code(s): K81.9 - CHOLECYSTITIS, UNSPECIFIED SNOMED Code(s): 22755756 Plan: 1- Zosyn 3.375 g every 8 hours 2- gentle IV fluid 3- Gen. surgery is on the case for possible cholecystectomy We will follow on clinical condition and cultures to further adjust medication if needed Thank you for this consultation will follow this patient with you Time with Patient: Greater than 30
[2020-02-28] MEDS: SODIUM CHLORIDE 0.9% 1,000 ML IV SCH ×2 (01:27→15:39)
[2020-02-28 06:54] LABS: Glucose,Whole Blood 130 mg/dL (75-99)
[2020-02-28] MEDS: LEVOTHYROXINE 100 MCG TAB PO SCH (08:17)
[2020-02-28] MEDS: FLUoxetine HCL 20 MG CAP PO SCH (08:18)
[2020-02-28] MEDS: PIPERACILLIN-TAZOBACTAM 3.375 GM in SODIUM CHLORIDE 0.9% 100 ML IVPB SCH ×3 (08:18→23:46)
[2020-02-28] MEDS: IMIPRAMINE 10 MG TAB PO SCH ×3 (08:18→21:13)
[2020-02-28] MEDS: MORPHINE SULFATE 4 MG/ML SYRINGE IVP PRN (11:12)
[2020-02-28 11:55] LABS: Glucose,Whole Blood 141 mg/dL (75-99)
--- NOTE | 2020-02-28 16:03 | CDI ---
Documentation Clarification Form Date: 02/28/2020 03:24:36 PM From: Josefa Smith RN, CCDS Admit Date: 02/26/2020 10:54:00 PM Patient Name: Radha Akhtar Visit Number: [id number] Discharge Date: ATTENTION: The Clinical Documentation Specialists (CDI) and [facility] Coding Staff appreciate your assistance in clarifying documentation. Please respond to the clarification below the line at the bottom and electronically sign. The CDI & [facility] Coding staff will review the response and follow-up if needed. Please note: Queries are made part of the Legal Health Record. If you have any questions, please contact the author of this message via ITS. Dr. Taran Chavis Encephalopathy is documented in your H&P and further specificity is requested. History/Risk Factors: Hypertension, Cancer, Current every day smoker Clinical Indicators: 64-year old female present on 02/25 with malaise weakness, confusion and shortness of breath per H&P. She was also complaining of some abdominal pain. Vital signs on admission: 122/69 105 19 100.4 02/25 Labs: WBC 26.8, Neutrophils 24.6, Lactic acid 2.2, Lipase 1185, UA: Ur Leukocyte Esterase Moderate, urine bacteria few, Hyaline casts 41 02/25 urine culture: gram neg bacilli 02/25 blood culture: no growth after 24 hours 02/25 Coronavirus (PCR) Not detected 02/25 Chest x-ray: right lower lobe pneumonia 02/25 abdominal US: Large gallstone. Extensive inflammatory changes and fluid around the pancreas consistent with acute pancreatitis which is a significant change compared to old exam Treatment: Neurological assessment per protocol q shift Levaquin 750 mg iv q 24 hrs Zosyn 3.375 mg iv q8hrs Monitor CBC, Vital signs In your professional opinion, please clarify the etiology of the Altered Mental Status, if known. Metabolic Encephalopathy Other condition (please specify) Unable to determine (Last Revision: November 2017) MTDD
--- NOTE | 2020-02-28 16:19 | CDI ---
Documentation Clarification Form Date: 02/28/2020 04:03:58 PM From: Josefa Smith RN, CCDS Admit Date: 02/26/2020 10:54:00 PM Patient Name: Radha Akhtar Visit Number: [id number] Discharge Date: ATTENTION: The Clinical Documentation Specialists (CDI) and [facility] Coding Staff appreciate your assistance in clarifying documentation. Please respond to the clarification below the line at the bottom and electronically sign. The CDI & [facility] Coding staff will review the response and follow-up if needed. Please note: Queries are made part of the Legal Health Record. If you have any questions, please contact the author of this message via ITS. Dr. Taran Chavis 02/26 ID consult (Dr. Arreaga) has documented "Sepsis in this patient did have a fever and elevated white count and tachycardia. Sepsis is not in the attending documentation. Please provide your clinical opinion for sepsis ruled in or out. History/Risk Factors: Hypertension, Cancer, Current every day smoker Clinical Indicators: 64-year old female present on 02/25 with malaise weakness, confusion and shortness of breath per H&P. She was also complaining of some abdominal pain. Vital signs on admission: 122/69 105 19 100.4 02/25 Labs: WBC 26.8, Neutrophils 24.6, Lactic acid 2.2, Lipase 1185, UA: Ur Leukocyte Esterase Moderate, urine bacteria few, Hyaline casts 41 02/25 urine culture: gram neg bacilli 02/25 blood culture: no growth after 24 hours 02/25 Coronavirus (PCR) Not detected 02/25 Chest x-ray: right lower lobe pneumonia 02/25 abdominal US: Large gallstone. Extensive inflammatory changes and fluid around the pancreas consistent with acute pancreatitis which is a significant change compared to old exam Treatment: Neurological assessment per protocol q shift Levaquin 750 mg iv q 24 hrs Zosyn 3.375 mg iv q8hrs Monitor CBC, Vital signs In your professional opinion, please clarify if these findings signify one of the following conditions, whether the condition is POA, and cause, if known: Condition Sepsis ruled in present on admission Sepsis ruled out Other, please specify Unable to determine SIRS Criteria (2 or more of the following may indicate SIRS): -Temperature < 96.8F (36C) or > 101.0F (38.3C) -Heart Rate > 90 bpm -Respiratory Rate > 20 breaths/min or PaCO2 < 32 mmHg -White Blood Cell Count > 12,000 or < 4,000 cells/mm3 or > 10% bands -Lactate >2.0 mmol/L (>4.0 is equivalent to septic shock) (Last Revision: November 2017) MTDD
--- NOTE | 2020-02-28 16:22 | P.PN ---
Progress Note - Text Progress Note Date: 02/28/20 The patient's resting comfortably. . She has she feels better today. On exam vital signs are stable. Abdomen soft. There is minimal epigastric tenderness. Resolving peritonitis. Patient will follow-up as outpatient for cholecystectomy.
[2020-02-28 16:38] LABS: Glucose,Whole Blood 126 mg/dL (75-99)
--- NOTE | 2020-02-28 17:44 | PN ---
PROGRESS NOTE CHIEF COMPLAINT: Urinary tract infection, pneumonitis, pancreatitis. HISTORY OF PRESENT ILLNESS: This lady is doing a little bit better. She is still having some upper abdominal pain as nearly as I can tell. She does have a large gallstone. She has been referred to Surgery. PHYSICAL EXAMINATION: Color is good. Chest is clear. Cardiac exam is normal and she is tender over the upper abdomen. Bowel sounds are present. Extremities are normal. IMPRESSION: 1. Pancreatitis. 2. Cholelithiasis. 3. Urinary tract infection. 4. Bronchopneumonia. 5. 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 PLAN: 1. Continue to monitor vital signs and pancreatic enzymes. 2. General surgery evaluation. MMODL / IJN: [id number] /
[2020-02-28 20:37] LABS: Glucose,Whole Blood 126 mg/dL (75-99)
[2020-02-28] MEDS: lisinopriL 20 MG TAB PO SCH (21:12)
[2020-02-28] MEDS: LEVOFLOXACIN 750MG-D5W PMX 750 MG in DEXTROSE/WATER 1 150ML.BAG IVPB SCH (21:13)
[2020-02-28] MEDS: OXYBUTYNIN 15 MG TAB.ER.24 PO SCH (21:13)
--- NOTE | 2020-02-29 01:06 | PN ---
PROGRESS NOTE DATE OF SERVICE: 02/28/2020 REASON FOR FOLLOWUP: Gallstone pancreatitis and question of cholecystitis. INTERVAL HISTORY: The patient is currently afebrile. The patient's abdominal pain is currently controlled. Some nausea, but no vomiting. No chest pain, shortness of breath or cough. No diarrhea. PHYSICAL EXAMINATION: Blood pressure 112/68 with a pulse of 80, temperature 98.2. She is 91% on room air. General description is elderly female lying in bed in no distress. RESPIRATORY SYSTEM: Unlabored breathing, clear to auscultation anteriorly. HEART: S1, S2. Regular rate and rhythm. ABDOMEN: Soft, mildly distended and tender in the epigastric area. No guarding or rigidity. LABS: No new labs have been obtained today. Urine with gram-negative. Blood culture has been negative. DIAGNOSTIC IMPRESSION AND PLAN: Patient admitted to the hospital with abdominal pain has been diagnosed with acute pancreatitis, likely gallstone related with large gallstone and question of cholecystitis. Surgery is following the patient covered with Zosyn. Repeat the blood work tomorrow and monitor clinical course closely. MMODL / IJN: [id number] /
[2020-02-29] MEDS: MORPHINE SULFATE 4 MG/ML SYRINGE IVP PRN ×2 (01:45→23:04)
[2020-02-29] MEDS: SODIUM CHLORIDE 0.9% 1,000 ML IV SCH ×3 (01:48→20:44)
[2020-02-29 07:01] LABS: Glucose,Whole Blood 123 mg/dL (75-99)
[2020-02-29] MEDS: PIPERACILLIN-TAZOBACTAM 3.375 GM in SODIUM CHLORIDE 0.9% 100 ML IVPB SCH ×3 (07:37→23:01)
[2020-02-29] MEDS: FLUoxetine HCL 20 MG CAP PO SCH (07:38)
[2020-02-29] MEDS: LEVOTHYROXINE 100 MCG TAB PO SCH (07:38)
[2020-02-29] MEDS: IMIPRAMINE 10 MG TAB PO SCH ×3 (07:38→20:44)
[2020-02-29] MEDS ORDERED: FUROSEMIDE 10 MG/ML 10 ML VIAL IV STA (10:29)
[2020-02-29 11:20] LABS: Basophils % (A) 0 %; Eosinophils # (A) 0.1 k/uL (0-0.7); Eosinophils % (A) 0 %; HCT 42.6 % (34.0-46.0); HGB 14.1 gm/dL (11.4-16.0); Lymphocytes # (A) 0.8 k/uL (1.0-4.8); Lymphocytes % (A) 4 %; MCH 34.2 pg (25.0-35.0); MCHC 33.2 g/dL (31.0-37.0); MCV 103.2 fL (80.0-100.0); Macrocytosis Slight; Mean Platelet Volume 8.2; Monocytes # (A) 0.9 k/uL (0-1.0); Monocytes % (A) 5 %; Neutrophils # (A) 17.7 k/uL (1.3-7.7); Neutrophils % (A) 90 %; Platelet Count 280 k/uL (150-450); RBC 4.13 m/uL (3.80-5.40); RDW 14.3 % (11.5-15.5); WBC 19.7 k/uL (3.8-10.6)
[2020-02-29 11:28] LABS: ALT 22 U/L (4-34); AST 28 U/L (14-36); African American GFR (CKD) >90 (>60 ml/min/1.73 sqM); Albumin 2.9 g/dL (3.5-5.0); Alkaline Phosphatase 115 U/L (38-126); Anion Gap 9 mmol/L; Blood Urea Nitrogen 22 mg/dL (7-17); Calcium 7.6 mg/dL (8.4-10.2); Carbon Dioxide 19 mmol/L (22-30); Chloride 111 mmol/L (98-107); Glucose 133 mg/dL (74-99); Non-African American GFR(CKD) 83 (>60 ml/min/1.73 sqM); Potassium 3.5 mmol/L (3.5-5.1); Sodium 139 mmol/L (137-145); Total Bilirubin 0.6 mg/dL (0.2-1.3); Total Protein 5.6 g/dL (6.3-8.2)
--- NOTE | 2020-02-29 11:56 | XR ---
EXAMINATION TYPE: XR chest 1V portable DATE OF EXAM: 02/29/2020 CLINICAL HISTORY: Shortness of breath TECHNIQUE: Frontal portable view of the chest obtained. COMPARISON: Chest radiograph 02/26/2020 FINDINGS: Surgical clips overlying the left chest. Low lung volumes. The cardiomediastinal silhouette is within normal limits for size. Pulmonary vasculature is normal. There is no focal air space opaci ty, pleural effusion, or pneumothorax seen. The osseous structures are intact. IMPRESSION: Resolution of previously described right lower lobe consolidation.
[2020-02-29] MEDS: ALBUTEROL NEBULIZED 2.5 MG/3 ML INHALATION SCH ×4 (12:58→20:13)
[2020-02-29] MEDS ORDERED: FUROSEMIDE 40 MG TAB PO STA (19:28)
--- NOTE | 2020-02-29 19:33 | P.PN ---
Progress Note - Text Progress Note Date: 02/29/20 Patient feels better. She denies any significant abdominal pain. On exam vitals are stable. Abdomen soft. Resolving pancreatitis. Patient most likely has had gallstone pancreas. Patient will undergo laparoscopic cholecystectomy when stable.
[2020-02-29] MEDS ORDERED: FUROSEMIDE 10 MG/ML 4 ML VIAL IV STA (19:53)
--- NOTE | 2020-02-29 20:23 | CT ---
EXAMINATION TYPE: CT chest angio for PE, contrast and with 3-D reconstruction renderings DATE OF EXAM: 02/29/2020 COMPARISON: Chest radiograph 02/29/2020, CT 02/26/2020 HISTORY: elevated d-dimer, SOB CT DLP: 631.1 mGycm Automated exposure control for dose reduction was used. CONTRAST: CT Chest for pulmonary embolism performed with with IV Contrast, patient injected with 100 mL of Isovue 370. FINDINGS: PLEURAL SPACES AND LUNGS: Bilateral relatively small pleural effusions noted, greater on the right. B ilateral bibasilar partial airlessness, greater on the right. Likely representing passive atelectasis , concurrent pneumonia can be clinically considered. Lungs are otherwise clear. MEDIASTINUM: There is satisfactory enhancement of the pulmonary artery and its branches, there is no CT evidence for pulmonary embolism. The aorta is unremarkable. There is no cardiomegaly or pericardia l effusion. There are no greater than 1 cm hilar or mediastinal lymph nodes. No pericardial effusio n is seen. OTHER: The marked changes of pancreatitis are redemonstrated, with prominent interval increase in th e fluid-filled gastric and proximal duodenal distention when compared to the prior study. Also, the e sophagus shows fluid distention up to the level of the cricopharyngeus. Finally, there is mass effect upon the intrahepatic IVC, which is narrowed in caliber as a result of the inflammatory changes panc reatic head position. The portal venous and hepatic venous systems are not well visualized on this ex amination. IMPRESSION: Negative for pulmonary embolism. Small bilateral pleural effusions, greater on the right, with passive atelectasis. Prominent pancreatic changes redemonstrated, with their secondary effects upon the stomach, duodenum, and venous structures.
[2020-02-29] MEDS: OXYBUTYNIN 15 MG TAB.ER.24 PO SCH (20:44)
[2020-02-29] MEDS: lisinopriL 20 MG TAB PO SCH (20:44)
[2020-02-29] MEDS: LEVOFLOXACIN 750 MG TAB PO SCH (20:44)
--- NOTE | 2020-03-01 01:06 | PN ---
PROGRESS NOTE DATE OF SERVICE: 02/29/2020 REASON FOR FOLLOWUP: Acute pancreatitis and fever. INTERVAL HISTORY: The patient is currently afebrile. Patient has been breathing comfortably. Denies having any chest pain. No shortness of breath or cough. Still having abdominal pain but no worsening. No nausea, no vomiting. No diarrhea. PHYSICAL EXAMINATION: Blood pressure is 128/60 with a pulse of 94, temperature 98.5. She is 92% on 3 L nasal cannula. General description is an elderly female lying in bed in no distress. RESPIRATORY SYSTEM: Unlabored breathing, clear to auscultation anteriorly. HEART: S1, S2. Regular rate and rhythm. ABDOMEN: Soft. Pain in the epigastric area. No guarding. No rigidity. LABS: Hemoglobin is 14.1, white count 19.7, BUN of 22, creatinine 0.76. CT angiogram was negative for PE. Urine is positive for an E coli sensitive pathogen. DIAGNOSTIC IMPRESSION AND PLAN: Patient with fever, source is secondary to severe acute pancreatitis, possible gallstone related. The patient is covered with Zosyn to continue and monitor clinical course closely. This should cover the urinary tract infection as well. MMODL / IJN: [id number] /
[2020-03-01] MEDS: ALBUTEROL NEBULIZED 2.5 MG/3 ML INHALATION SCH (08:10)
[2020-03-01] MEDS: LEVOTHYROXINE 100 MCG TAB PO SCH (09:01)
[2020-03-01] MEDS: FLUoxetine HCL 20 MG CAP PO SCH (09:01)
[2020-03-01] MEDS: PIPERACILLIN-TAZOBACTAM 3.375 GM in SODIUM CHLORIDE 0.9% 100 ML IVPB SCH ×3 (09:02→23:20)
[2020-03-01] MEDS: IMIPRAMINE 10 MG TAB PO SCH ×3 (09:02→20:38)
[2020-03-01] MEDS: MORPHINE SULFATE 4 MG/ML SYRINGE IVP PRN ×2 (09:02→21:20)
--- NOTE | 2020-03-01 11:56 | P.PN ---
Progress Note - Text Progress Note Date: 03/01/20 Patient feels slightly better. Her abdominal pain is improved. On exam vital signs are stable. Abdomen is soft. Resolving gallstone pancreas. Patient was scheduled for laparoscopic cholecystectomy on Wednesday.
[2020-03-01] MEDS: IPRATROPIUM-ALBUTEROL 3 ML NEB INHALATION SCH ×3 (12:09→19:53)
--- NOTE | 2020-03-01 14:23 | P.CNPUL ---
History of Present Illness Consult date: 03/01/20 Reason for consult: dyspnea Chief complaint: Weakness confusion and shortness of breath. History of present illness: This is a 64-year-old female presented to the ER on 02/26/20, and she was complaining of weakness confusion shortness of breath, and not feeling well for the last few days. Patient also complained of occasional cough, shortness of breath, but no sputum production. She had a low-grade fever of 99. And she also complained of abdominal discomfort. On physical examination, patient had generalized abdominal tenderness, and she had a temp of 99. She was also noted to have leukocytosis, slightly elevated lactic acid, and elevated liver enzymes. Lipase was high at 09/12/2005. Urinalysis was suspicious for urinary tract infection, CT of the abdomen and pelvis showed evidence of pancreatitis. And there was a large gallstone but no evidence of dilated ducts or cholecystitis. Chest x-ray showed mostly atelectasis and small bilateral pleural effusions. Patient was admitted, placed on IV antibiotics, IV fluids, and placed empirically on Levaquin and Zosyn. Admitting diagnoses was mostly pancreatitis, possible urinary tract infection, and possible pneumonia. Patient was seen on consultation by infectious disease, and it was felt that the patient may have sepsis, gallstone pancreatitis, and cholecystitis. Hence the recommendation was to start the patient on Zosyn, and general surgery was consulted for possible cholecystectomy. Patient is now scheduled for laparoscopic cholecystectomy on Wednesday. In the meantime the patient has been complaining of some shortness of breath, and I reviewed the chest x-ray clearly shows atelectasis, patient is not taking enough of a deep breath, and she definitely seems congested. Hence I recommended incentive spirometry, I also recommended DuoNeb updrafts 4 times a day and when necessary. No clear-cut evidence of pneumonia. Patient was advise d to use incentive spirometry and advised to do deep coughing and deep breathing. Review of Systems Constitutional: Multiple confusional symptoms as noted in HPI. HEENT: Negative Cardiac: Negative Pulmonary: As noted in HPI. GI: As noted in HPI. Genitourinary: Negative Musculoskeletal: Negative Neuropsych: Negative Endocrine: Negative Hematologic: Negative Psychiatric: Negative Past Medical History Past Medical History: Cancer, Hypertension Additional Past Medical History / Comment(s): closed head injury History of Any Multi-Drug Resistant Organisms: None Reported Additional Past Surgical History / Comment(s): left breast surgery, thyroid removed Past Psychological History: No Psychological Hx Reported Smoking Status: Current every day smoker Past Alcohol Use History: Daily Past Drug Use History: None Reported Medications and Allergies Home Medications Medication Instructions Recorded Confirmed Type Acetaminophen [Tylenol] 650 mg PO TID@0800,1400,199902/26/20 02/26/20 History Atorvastatin Calcium [Lipitor] 40 mg PO HS@199902/26/20 02/26/20 History Calcium Carbonate/Vitamin D3 1 tab PO BID@0800,1400 02/26/20 02/26/20 History [Calcium 600-Vit D3 400 Tablet] Chlorhexidine Gluconate [Peridex] 15 ml PO BID@0800,199902/26/20 02/26/20 History Enalapril Maleate [Vasotec] 10 mg PO HS@199902/26/20 02/26/20 History FLUoxetine HCL [PROzac] 20 mg PO DAILY@0800 02/26/20 02/26/20 History Imipramine [Tofranil] 10 mg PO TID@0800,1400,199902/26/20 02/26/20 History Levothyroxine Sodium 200 mcg PO DAILY@0800 02/26/20 02/26/20 History Multivitamins, Thera [Multivitamin 1 tab PO DAILY@0802/26/20 02/26/20 History (formulary)] Niacin [Niacin ER] 500 mg PO HS@199902/26/20 02/26/20 History Nystatin [Nystop] 1 applic TOPICAL BID PRN 02/26/20 02/26/20 History Oxybutynin ER [Ditropan Xl] 15 mg PO HS@199902/26/20 02/26/20 History Allergies Allergy/AdvReac Type Severity Reaction Status Date / Time No Known Allergies Allergy Verified 02/26/20 22:22 Physical Exam Vitals: Vital Signs Temp Pulse Pulse Resp BP BP Pulse Ox 03/01/20 08:20 92 03/01/20 08:10 92 03/01/20 08:00 98.2 F 102 H 22 108/63 96 03/01/20 03:20 98.3 F 94 20 122/58 92 L 02/29/20 23:40 24 02/29/20 23:20 98.2 F 96 24 138/64 94 L 02/29/20 20:23 96 02/29/20 20:13 94 02/29/20 19:50 98.5 F 87 24 128/60 92 L 02/29/20 17:17 92 02/29/20 17:05 88 02/29/20 15:12 97.7 F 89 25 H 128/80 94 L Intake and Output 02/29/20 03/01/20 03/01/20 22:59 06:59 14:59 Intake Total 120 120 Output Total 450 Balance 120 -450 120 Intake: Oral 120 120 Output: Urine 450 Other: Voiding Method Indwelling Catheter Indwelling Catheter Indwelling Catheter # Voids 0 # Bowel Movements 0 Weight 90 kg Physical Exam: Revealed a 64-year-old female in no distress. On 2 L nasal cannula. O2 saturation is 96%. Head: Atraumatic, normocephalic. HEENT:[Neck is supple.] [No neck masses.] [No thyromegaly.] [No JVD.] Chest: [Diminished breath sounds at the bases, rhonchi on forced expiratory maneuver. Patient has poor respiratory effort, unable to clear her secretions with deep coughing. Effort seems to be extremely poor Cardiac Exam: [Normal S1 and S2, no S3 gallop, no murmur.] Abdomen: [Soft, nontender, no megaly, no rebound, no guarding, normal bowel sounds.] Extremities: [No clubbing, no edema, no cyanosis.] Neurological Exam: [No focal neurologic deficit.] Alert and oriented 3. Psychiatric: Normal mood affect and normal mental status examination. Skin: No rashes. Results - Laboratory Findings CBC and BMP: 02/29/20 10:51 02/29/20 10:51 PT/INR, D-dimer PT 10.1 sec (9.0-12.0) 02/26/20 20:30 INR 1.0 (<1.2) 02/26/20 20:30 D-Dimer 6.56 mg/L FEU (<0.60) H 02/29/20 10:51 Abnormal lab findings: Abnormal Labs 02/26/20 02/26/20 02/26/20 20:30 20:30 20:30 WBC 26.8 H Hct 47.0 H MCV 101.6 H Neutrophils # 24.6 H Lymphocytes # 0.6 L Monocytes # 1.2 H D-Dimer Chloride Carbon Dioxide BUN 37 H Glucose 156 H POC Glucose (mg/dL) Plasma Lactic Acid Anthony Calcium AST 70 H ALT 39 H Total Protein Albumin Lipase Urine Appearance Cloudy H Ur Specific [place] 1.038 H Urine Protein 2+ H Urine Ketones Trace H Urine Blood Small H Ur Leukocyte Esterase Moderate H Urine WBC 19 H Amorphous Sediment Rare H Urine Bacteria Few H Hyaline Casts 41 H Urine Mucus Many H 02/26/20 02/26/20 02/27/20 20:30 20:30 06:57 WBC Hct MCV Neutrophils # Lymphocytes # Monocytes # D-Dimer Chloride Carbon Dioxide BUN Glucose POC Glucose (mg/dL) 127 H Plasma Lactic Acid Anthony 2.2 H* Calcium AST ALT Total Protein Albumin Lipase 2406 H Urine Appearance Ur Specific [place] Urine Protein Urine Ketones Urine Blood Ur Leukocyte Esterase Urine WBC Amorphous Sediment Urine Bacteria Hyaline Casts Urine Mucus 02/27/20 02/27/20 02/27/20 07:12 07:12 11:39 WBC 13.2 H Hct MCV 103.0 H Neutrophils # 11.3 H Lymphocytes # 0.8 L Monocytes # D-Dimer Chloride 109 H Carbon Dioxide BUN 40 H Glucose 129 H POC Glucose (mg/dL) 143 H Plasma Lactic Acid Anthony Calcium 8.2 L AST 49 H ALT Total Protein 5.8 L Albumin 3.3 L Lipase 1185 H Urine Appearance Ur Specific [place] Urine Protein Urine Ketones Urine Blood Ur Leukocyte Esterase Urine WBC Amorphous Sediment Urine Bacteria Hyaline Casts Urine Mucus 02/27/20 02/27/20 02/28/20 16:57 20:06 06:52 WBC Hct MCV Neutrophils # Lymphocytes # Monocytes # D-Dimer Chloride Carbon Dioxide BUN Glucose POC Glucose (mg/dL) 135 H 169 H 130 H Plasma Lactic Acid Anthony Calcium AST ALT Total Protein Albumin Lipase Urine Appearance Ur Specific [place] Urine Protein Urine Ketones Urine Blood Ur Leukocyte Esterase Urine WBC Amorphous Sediment Urine Bacteria Hyaline Casts Urine Mucus 02/28/20 02/28/20 02/28/20 11:39 16:37 20:35 WBC Hct MCV Neutrophils # Lymphocytes # Monocytes # D-Dimer Chloride Carbon Dioxide BUN Glucose POC Glucose (mg/dL) 141 H 126 H 126 H Plasma Lactic Acid Anthony Calcium AST ALT Total Protein Albumin Lipase Urine Appearance Ur Specific [place] Urine Protein Urine Ketones Urine Blood Ur Leukocyte Esterase Urine WBC Amorphous Sediment Urine Bacteria Hyaline Casts Urine Mucus 02/29/20 02/29/20 02/29/20 06:59 10:51 10:51 WBC 19.7 H Hct MCV 103.2 H Neutrophils # 17.7 H Lymphocytes # 0.8 L Monocytes # D-Dimer Chloride 111 H Carbon Dioxide 19 L BUN 22 H Glucose 133 H POC Glucose (mg/dL) 123 H Plasma Lactic Acid Anthony Calcium 7.6 L AST ALT Total Protein 5.6 L Albumin 2.9 L Lipase Urine Appearance Ur Specific [place] Urine Protein Urine Ketones Urine Blood Ur Leukocyte Esterase Urine WBC Amorphous Sediment Urine Bacteria Hyaline Casts Urine Mucus 02/29/20 10:51 WBC Hct MCV Neutrophils # Lymphocytes # Monocytes # D-Dimer 6.56 H Chloride Carbon Dioxide BUN Glucose POC Glucose (mg/dL) Plasma Lactic Acid Anthony Calcium AST ALT Total Protein Albumin Lipase Urine Appearance Ur Specific [place] Urine Protein Urine Ketones Urine Blood Ur Leukocyte Esterase Urine WBC Amorphous Sediment Urine Bacteria Hyaline Casts Urine Mucus - Diagnostic Findings CT scan - chest: image reviewed (CT of the chest was negative for pulmonary embolism. However there was evidence of small bilateral effusions and bibasilar atelectasis.) Assessment and Plan Assessment: Impression: Shortness of breath secondary to bibasilar atelectasis and pleural effusions, and for respiratory effort to clear secretions. Gallstone pancreatitis Abdominal sepsis on presentation. History of closed head injury. Recommendation: Patient was advised to use incentive spirometry. Will place the patient on updrafts in the form of DuoNeb 4 times a day and when necessary. Trial of gentle diuresis. Ambulation and physical therapy. Continue antibiotics as per infectious disease on the case for abdominal sepsis/cholecystitis. Agree with cholecystectomy early next week. Encourage deep coughing and deep breathing. Time with Patient: Greater than 30
--- NOTE | 2020-03-01 16:02 | XR ---
EXAMINATION TYPE: XR chest 1V DATE OF EXAM: 03/01/2020 COMPARISON: 02/29/2020 HISTORY: 64-year-old female shortness of breath TECHNIQUE: Single frontal view of the chest is obtained. FINDINGS: Low lung volumes with crowded vascular markings. Heart upper limits of normal size. Patchy right basi lar opacity. Some patchy peripheral left basilar opacity as well. IMPRESSION: Limited due to hypoventilatory changes and low lung volumes. Patchy right basilar atelectasis and/or infiltrate persists. Possible minimal infiltrate/atelectasis at the peripheral left base.
--- NOTE | 2020-03-01 16:02 | P.CRDCN ---
History of Present Illness History of present illness: This is Heidi Ballard PA-C dictating a consult on this patient The patient was interviewed and examined by me as well as by Dr. Thayer Case discussed with Dr. Thayer and he agrees with the plan of care HPI Patient is a 64-year-old female with a history of cancer and hypertension who presented with weakness, confusion and shortness of breath. At the time of my examination the patient was an extremely poor historian. She was very sleepy but arousable. Fell asleep several times throughout the exam and history was obtained from the chart. He shouldn't does not follow with a cylinder loader. She apparently presented to the emergency department with complaints of shortness of breath, cough, low-grade fevers, abdominal pain, weakness. Upon arrival to the emergency department temperature was 99.5 pulse 105, blood pressure 112/69, oxygen saturation 95% on room air. Chest x-ray revealed right lower lobe pneumonia. EKG showed sinus tachycardia with nonspecific ST segment changes. CT of the abdomen and pelvis revealed large gallstone, extensive inflammatory changes and fluid around the pancreas consistent with acute pancreatitis. Dr. Yonathan basilio was consulted and is planning for elective cholecystectomy once her pancreatitis improves. Cardiology is consulted for an abnormal d-dimer and shortness of breath. Chest CT was negative for pulmonary embolism. She has b een started on a trial of Lasix. Patient seen and examined resting in bed. Denies any chest pain. ROS: Unable to obtain patient was a poor historian EXAMINATION: Temperature 100.2F, pulse 104, respirations 20, blood pressure 115/55, oxygen saturation 93% on 2 L nasal cannula pt seen and examined resting in bed, groggy but arousable, doesn't answer many questions, not in any acute distress Breath sounds are rhonchorous bilaterally Heart is tachycardic but regular No lower extremity edema REVIEW OF LABS, ECG & MEDICAL DATA WBC 19.7, hemoglobin 14.1, platelets 280, potassium 3.5, BUN 22, creatinine 0.76 Troponin negative Repeat EKG today shows no acute changes IMPRESSION / ASSESSMENT: #1 acute gallstone pancreatitis, awaiting surgery #2 possible sepsis #3 symptoms of shortness of breath, CT negative for PE, troponins negative, no acute changes on EKG #4 history of hypertension PLAN: Agree with trial of Lasix Obtain echocardiogram Management of gallstone pancreatitis per surgery Continue antibiotics Past Medical History Past Medical History: Cancer, Hypertension Additional Past Medical History / Comment(s): closed head injury History of Any Multi-Drug Resistant Organisms: None Reported Additional Past Surgical History / Comment(s): left breast surgery, thyroid removed Past Psychological History: No Psychological Hx Reported Smoking Status: Current every day smoker Past Alcohol Use History: Daily Past Drug Use History: None Reported Medications and Allergies Home Medications Medication Instructions Recorded Confirmed Type Acetaminophen [Tylenol] 650 mg PO TID@0800,1400,199902/26/20 02/26/20 History Atorvastatin Calcium [Lipitor] 40 mg PO HS@199902/26/20 02/26/20 History Calcium Carbonate/Vitamin D3 1 tab PO BID@0800,1400 02/26/20 02/26/20 History [Calcium 600-Vit D3 400 Tablet] Chlorhexidine Gluconate [Peridex] 15 ml PO BID@0800,199902/26/20 02/26/20 History Enalapril Maleate [Vasotec] 10 mg PO HS@199902/26/20 02/26/20 History FLUoxetine HCL [PROzac] 20 mg PO DAILY@0800 02/26/20 02/26/20 History Imipramine [Tofranil] 10 mg PO TID@0800,1400,199902/26/20 02/26/20 History Levothyroxine Sodium 200 mcg PO DAILY@0800 02/26/20 02/26/20 History Multivitamins, Thera [Multivitamin 1 tab PO DAILY@0800 02/26/20 02/26/20 History (formulary)] Niacin [Niacin ER] 500 mg PO HS@199902/26/20 02/26/20 History Nystatin [Nystop] 1 applic TOPICAL BID PRN 02/26/20 02/26/20 History Oxybutynin ER [Ditropan Xl] 15 mg PO HS@199902/26/20 02/26/20 History Allergies Allergy/AdvReac Type Severity Reaction Status Date / Time No Known Allergies Allergy Verified 02/26/20 22:22 Physical Exam Vitals: Vital Signs Temp Pulse Pulse Resp BP BP Pulse Ox 03/01/20 12:00 100.2 F H 104 H 20 115/55 93 L 03/01/20 08:20 92 03/01/20 08:10 92 03/01/20 08:00 98.2 F 102 H 22 108/63 96 03/01/20 03:20 98.3 F 94 20 122/58 92 L 02/29/20 23:40 24 02/29/20 23:20 98.2 F 96 24 138/64 94 L 02/29/20 20:23 96 02/29/20 20:13 94 02/29/20 19:50 98.5 F 87 24 128/60 92 L 02/29/20 17:17 92 02/29/20 17:05 88 Intake and Output 03/01/20 03/01/20 03/01/20 06:59 14:59 22:59 Intake Total 120 0 Output Total 450 Balance -450 120 0 Intake: Oral 120 0 Output: Urine 450 Other: Voiding Method Indwelling Catheter Indwelling Catheter # Voids 0 0 # Bowel Movements 0 0 Weight 90 kg Results 02/29/20 10:51 02/29/20 10:51 Current Medications Generic Name Dose Route Start Last Admin Trade Name Fre PRN Reason Stop Dose Admin Acetaminophen 650 mg 02/26/20 23:05 Tylenol Tab PO Q6HR PRN Mild Pain or Fever > 100.5 Albuterol/Ipratropium 3 ml 03/01/20 12:00 03/01/20 15:53 Duoneb 0.5 Mg-3 Mg/3 Ml Soln INHALATION Not Given RT-QID DEBORAH Fluoxetine HCl 20 mg 02/28/20 08:00 03/01/20 09:01 Prozac PO 20 mg DAILY@0800 DEBORAH Administration Piperacillin Sod/Tazobactam 100 mls @ 25 mls/hr 02/27/20 00:00 03/01/20 09:02 Sod 3.375 gm/ Sodium Chloride IVPB 25 mls/hr Q8HR DEBORAH Administration Sodium Chloride 1,000 mls @ 20 mls/hr 02/26/20 22:30 02/29/20 20:44 Saline 0.9% IV 20 mls/hr .Q24H DEBORAH Administration Imipramine HCl 10 mg 02/27/20 14:00 03/01/20 09:02 Tofranil PO 10 mg TID@0800,1400,2000 DEBORAH Administration Levofloxacin 750 mg 02/29/20 21:00 07/23/20 20:44 Levaquin PO 750 mg Q24H DEBORAH Administration Levothyroxine Sodium 200 mcg 02/28/20 08:00 03/01/20 09:01 Synthroid PO 200 mcg DAILY@0800 [facility] Administration Lisinopril 20 mg 02/27/20 20:00 02/29/20 20:44 Zestril PO 20 mg HS@1999 DEBORAH Administration Morphine Sulfate 4 mg 02/26/20 22:46 03/01/20 09:02 Morphine Sulfate (Inj) IVP 4 mg Q6HR PRN Administration Pain Naloxone HCl 0.2 mg 02/26/20 23:05 Narcan IV Q2M PRN Opioid Reversal Nystatin 1 applic 02/27/20 10:54 Mycostatin Powder TOPICAL BID PRN Rash Oxybutynin Chloride 15 mg 02/27/20 20:00 02/29/20 20:44 Ditropan Xl PO 15 mg HS@1999 DEBORAH Administration Intake and Output 03/01/20 03/01/20 03/01/20 06:59 14:59 22:59 Intake Total 120 0 Output Total 450 Balance -450 120 0 Intake: Oral 120 0 Output: Urine 450 Other: Voiding Method Indwelling Catheter Indwelling Catheter # Voids 0 0 # Bowel Movements 0 0 Weight 90 kg 02/29/20 10:51 02/29/20 10:51
[2020-03-01 16:32] LABS: Calcium 7.7 mg/dL (8.4-10.2); Potassium 3.6 mmol/L (3.5-5.1); Total Bilirubin 0.7 mg/dL (0.2-1.3); Total Protein 5.7 g/dL (6.3-8.2)
[2020-03-01 16:36] LABS: Basophils # (A) 0.1 k/uL (0-0.2); Basophils % (A) 1 %; Eosinophils % (A) 0 %; HCT 42.9 % (34.0-46.0); Lymphocytes # (A) 1.6 k/uL (1.0-4.8); Lymphocytes % (A) 8 %; MCH 32.9 pg (25.0-35.0); MCHC 32.6 g/dL (31.0-37.0); MCV 100.9 fL (80.0-100.0); Macrocytosis Slight; Mean Platelet Volume 8.4; Monocytes # (A) 1.1 k/uL (0-1.0); Monocytes % (A) 6 %; Neutrophils % (A) 83 %; Platelet Count 298 k/uL (150-450); RBC 4.25 m/uL (3.80-5.40); RDW 14.5 % (11.5-15.5); WBC 19.2 k/uL (3.8-10.6)
--- NOTE | 2020-03-01 17:15 | PN ---
PROGRESS NOTE DATE OF SERVICE: 03/01/2020 REASON FOR FOLLOWUP: Acute pancreatitis and fever. INTERVAL HISTORY: Patient did have a low-grade fever of 100.2 this afternoon. The patient is hemodynamically stable, not on pressor support. She has been transferred down to the cardiac unit because of shortness of breath and did have a CT angiogram that was negative for PE. The patient denies having any chest pain or cough. Denies any worsening abdominal pain. No vomiting or diarrhea reported. PHYSICAL EXAMINATION: Blood pressure 115/55 with a pulse of 104, temperature 100.2. She is 93% on 2 L nasal cannula. General description is an elderly female, lying in bed in no distress. RESPIRATORY SYSTEM: Unlabored breathing, clear to auscultation anteriorly. HEART: S1, S2. Regular rate and rhythm. ABDOMEN: Soft, mildly distended, no guarding or rigidity. LABS: Hemoglobin is 14.3, white count 19.2, BUN of 13, creatinine is 1.98. DIAGNOSTIC IMPRESSION AND PLAN: Patient admitted to the hospital with fever and abdominal pain, has been diagnosed with acute pancreatitis, possible gallstone related. General Surgery is on the case monitoring: The patient is covered with Zosyn, now with worsening symptoms and fever, had to repeat a CT abdominal and pelvis with no evidence of any worsening on exam of pancreatitis. Continue Zosyn. Blood cultures will be repeated as well as inflammatory markers. Continue supportive care. MMODL / IJN: [id number] /
[2020-03-01] MEDS: lisinopriL 20 MG TAB PO SCH (20:31)
[2020-03-01] MEDS: LEVOFLOXACIN 750 MG TAB PO SCH (20:38)
[2020-03-01] MEDS: OXYBUTYNIN 15 MG TAB.ER.24 PO SCH (21:16)
[2020-03-01] MEDS: SODIUM CHLORIDE 0.9% 1,000 ML IV SCH (21:50)
[2020-03-02] MEDS: IPRATROPIUM-ALBUTEROL 3 ML NEB INHALATION SCH ×4 (08:09→19:24)
[2020-03-02] MEDS: PIPERACILLIN-TAZOBACTAM 3.375 GM in SODIUM CHLORIDE 0.9% 100 ML IVPB SCH ×2 (08:28→20:16)
[2020-03-02] MEDS: FLUoxetine HCL 20 MG CAP PO SCH (08:28)
[2020-03-02] MEDS: LEVOTHYROXINE 100 MCG TAB PO SCH (08:28)
[2020-03-02 10:24] LABS: ABG Base Excess -3.5 mmol/L; ABG HCO3 21 mmol/L (21-25); ABG Oxygen Saturation 93.5 % (94-97); ABG PCO2 31 mmHg (35-45); ABG PH 7.43 (7.35-7.45); ABG PO2 60 mmHg (83-108); ABG TCO2 22 mmol/L (19-24); Allen Test Performed? Yes
[2020-03-02 10:59] LABS: Calcium 7.7 mg/dL (8.4-10.2)
[2020-03-02 11:03] LABS: HCT 39.8 % (34.0-46.0); HGB 13.2 gm/dL (11.4-16.0); Hypochromasia Slight; MCH 34.4 pg (25.0-35.0); MCHC 33.3 g/dL (31.0-37.0); MCV 103.5 fL (80.0-100.0); Macrocytosis Slight; Mean Platelet Volume 8.4; Platelet Count 267 k/uL (150-450); RBC 3.85 m/uL (3.80-5.40); RDW 14.5 % (11.5-15.5); WBC 16.9 k/uL (3.8-10.6)
[2020-03-02 11:04] LABS: Potassium 4.4 mmol/L (3.5-5.1); Total Protein 5.6 g/dL (6.3-8.2)
[2020-03-02 11:05] LABS: Albumin 2.8 g/dL (3.5-5.0)
[2020-03-02 11:10] LABS: Glucose,Whole Blood 118 mg/dL (75-99)
[2020-03-02] MEDS ORDERED: SODIUM CHLORIDE 0.9% 500 ML 500 ML IV ONE (11:21)
[2020-03-02 11:38] LABS: Band Neutrophils % 8 %; Eosinophils # (M) 0.17 k/uL (0-0.7); Lymphocytes # (M) 1.69 k/uL (1.0-4.8); Metamyelocytes # (M) 0.51 k/uL (0); Metamyelocytes % 3 %; Monocytes # (M) 1.86 k/uL (0-1.0); Myelocytes # (M) 0.34 k/uL (0); Myelocytes % 2 %; Neutrophils % (M) 68 %; Nucleated Red Blood Cells 0 /100 WBC (0-0); Total Cells Counted 200
[2020-03-02 11:39] LABS: Toxic Granulation Present
[2020-03-02] MEDS: IMIPRAMINE 10 MG TAB PO SCH ×3 (11:44→20:09)
--- NOTE | 2020-03-02 12:11 | XR ---
EXAMINATION TYPE: XR chest 1V portable DATE OF EXAM: 03/02/2020 COMPARISON: 03/01/2020 HISTORY: Shortness of breath TECHNIQUE: Single frontal view of the chest is obtained. FINDINGS: Persistent bilateral infiltrate and pleural effusion. Calcification right axilla noted. Pa tchy infiltrate near the chest lead is obscured. No pneumothorax. Heart size stable. Gastric air bubb le is distended. Surgical clips overlying the left hemithorax. IMPRESSION: 1. Bilateral infiltrate and pleural effusion correlate clinically. Findings are stable. 2. Persistent distention of the gastric air bubble.
--- NOTE | 2020-03-02 12:21 | P.PN ---
Subjective Progress Note Date: 03/02/20 CHIEF COMPLAINT: Pancreatitis HISTORY OF PRESENT ILLNESS: The patient is a 64-year-old female transferred to the ICU due to hypoxia. She is now on BiPAP. She complains of epigastric pain and right upper quadrant pain. Her urine output is low. She had a fluid bolus which she responded too. She is on Morphine 4 mg every 6hrs as needed. Now her oxygen sats have improved with BiPAP. She reports epigastric and right upper quadrant abdominal pain. ROS: No reports of vomiting. No bowel movements. No recent fevers or chills. Yesterday, tmax was 100.2. No productive sputum PHYSICAL EXAM: VITAL SIGNS: Reviewed CONSTITUTIONAL: Well developed and in no acute distress. EYES: Conjuctivae without sclera icterus. Extraocular movements grossly intact. HEAD, EARS, NOSE, THROAT: Moist buccal mucosa. Head is atraumatic, normocephalic. Hears conversational speech. No nasal drainage. NECK: Supple. No thyroidomegaly. RESPIRATORY: Non-labored respirations and equal bilateral excursions. CARDIOVASCULAR: Palpable 2+ radial pulses. ABDOMEN: Tender at epigatrium and right upper quadrant. Soft, mild distention. : Urine dark and scant MUSCULOSKELETAL: No gross deformity of the lower extremities noted. No clubbing. No cyanosis. SKIN: Good skin turgor. Well perfused. NEUROLOGIC: Cranial nerves II through XII grossly intact. No focal or lateralizing signs. PSYCH: Appropriate affect. Alert and oriented to person, place and time. LABS: Reviewed. WBC down from 19.2 to 16.9. Creatinine elevated 1.98 to 3.19. AST down 142 to 82. ALT down 46 to 39. Alk Phos down from 153 to 115. STUDIES: Chest xray reviewed with low lung volumes and distended stomach. ASSESSMENT: 1. Gallstone pancreatitis PLAN: 1. Agree with NGT for ileus 2. Adjust pain meds for every 2 to 4 hrs as needed. Morphine discontinued for Dilaudid 3. Levaquin discontinued with coverage from Zosyn. Also, levaquin exacerbates pancreatitis. 4. May have ice chips. ADDENDUM: Nurse notified that patient had emesis. Placement of nasogastric tube with over 2.7 L decompressed from the stomach. Objective - Vital Signs Vital signs: Vital Signs Temp 98.1 F 03/02/20 11:30 Pulse 81 03/02/20 12:00 Resp 24 03/02/20 12:00 BP 87/54 03/02/20 12:00 Pulse Ox 97 03/02/20 12:00 Intake & Output 03/01/20 03/02/20 03/02/20 18:59 06:59 18:59 Intake Total 120 Output Total 100 0 Balance 120 -100 0 Weight 92 kg Intake: Oral 120 Output: Urine 100 0 Other: Voiding Method Indwelling Catheter Indwelling Catheter Indwelling Catheter # Voids 0 # Bowel Movements 0 - Labs CBC & Chem 7: 03/02/20 10:34 03/02/20 10:34 Labs: Abnormal Lab Results - Last 24 Hours (Table) 03/01/20 03/01/20 03/01/20 Range/Units 13:00 16:14 16:14 WBC 19.2 H (3.8-10.6) k/uL MCV 100.9 H (80.0-100.0) fL Neutrophils # 16.0 H (1.3-7.7) k/uL Neutrophils # (Manual) (1.3-7.7) k/uL Monocytes # 1.1 H (0-1.0) k/uL Monocytes # (Manual) (0-1.0) k/uL Metamyelocytes # (Man) (0) k/uL Myelocytes # (Manual) (0) k/uL ABG pCO2 (35-45) mmHg ABG pO2 (83-108) mmHg ABG O2 Saturation (94-97) % Sodium (137-145) mmol/L Chloride (98-107) mmol/L Carbon Dioxide 19 L (22-30) mmol/L BUN 38 H (7-17) mg/dL Creatinine 1.98 H (0.52-1.04) mg/dL Glucose 113 H (74-99) mg/dL POC Glucose (mg/dL) (75-99) mg/dL Calcium 7.7 L (8.4-10.2) mg/dL AST 142 H (14-36) U/L ALT 46 H (4-34) U/L Alkaline Phosphatase 153 H (38-126) U/L C-Reactive Protein 317.3 H (<10.0) mg/L Total Protein 5.7 L (6.3-8.2) g/dL Albumin 3.0 L (3.5-5.0) g/dL 03/02/20 03/02/20 03/02/20 Range/Units 10:20 10:34 10:34 WBC 16.9 H (3.8-10.6) k/uL MCV 103.5 H (80.0-100.0) fL Neutrophils # (1.3-7.7) k/uL Neutrophils # (Manual) 12.80 H (1.3-7.7) k/uL Monocytes # (0-1.0) k/uL Monocytes # (Manual) 1.86 H (0-1.0) k/uL Metamyelocytes # (Man) 0.51 H (0) k/uL Myelocytes # (Manual) 0.34 H (0) k/uL ABG pCO2 31 L (35-45) mmHg ABG pO2 60 L (83-108) mmHg ABG O2 Saturation 93.5 L (94-97) % Sodium 136 L (137-145) mmol/L Chloride 108 H (98-107) mmol/L Carbon Dioxide 16 L (22-30) mmol/L BUN 54 H (7-17) mg/dL Creatinine 3.19 H (0.52-1.04) mg/dL Glucose (74-99) mg/dL POC Glucose (mg/dL) (75-99) mg/dL Calcium 7.7 L (8.4-10.2) mg/dL AST 80 H (14-36) U/L ALT 39 H (4-34) U/L Alkaline Phosphatase (38-126) U/L C-Reactive Protein (<10.0) mg/L Total Protein 5.6 L (6.3-8.2) g/dL Albumin 2.8 L (3.5-5.0) g/dL 03/02/20 Range/Units 11:08 WBC (3.8-10.6) k/uL MCV (80.0-100.0) fL Neutrophils # (1.3-7.7) k/uL Neutrophils # (Manual) (1.3-7.7) k/uL Monocytes # (0-1.0) k/uL Monocytes # (Manual) (0-1.0) k/uL Metamyelocytes # (Man) (0) k/uL Myelocytes # (Manual) (0) k/uL ABG pCO2 (35-45) mmHg ABG pO2 (83-108) mmHg ABG O2 Saturation (94-97) % Sodium (137-145) mmol/L Chloride (98-107) mmol/L Carbon Dioxide (22-30) mmol/L BUN (7-17) mg/dL Creatinine (0.52-1.04) mg/dL Glucose (74-99) mg/dL POC Glucose (mg/dL) 118 H (75-99) mg/dL Calcium (8.4-10.2) mg/dL AST (14-36) U/L ALT (4-34) U/L Alkaline Phosphatase (38-126) U/L C-Reactive Protein (<10.0) mg/L Total Protein (6.3-8.2) g/dL Albumin (3.5-5.0) g/dL Microbiology - Last 24 Hours (Table) 02/26/20 20:30 Blood Culture - Preliminary Blood No Growth after 96 hours 02/27/20 11:05 Blood Culture - Preliminary Blood No Growth after 72 hours Assessment and Plan (1) Cholecystitis Current Visit: Yes Status: Acute Code(s): K81.9 - CHOLECYSTITIS, UNSPECIFIED SNOMED Code(s): 36789269 (2) Gallstone pancreatitis Current Visit: Yes Status: Acute Code(s): K85.10 - BILIARY ACUTE PANCREATITIS WITHOUT NECROSIS OR INFECTION SNOMED Code(s): 50159193 (3) Pancreatitis Current Visit: Yes Status: Acute Code(s): K85.90 - ACUTE PANCREATITIS WITHOUT NECROSIS OR INFECTION, UNSP SNOMED Code(s): 91389692
--- NOTE | 2020-03-02 12:55 | P.PN ---
Subjective Progress Note Date: 03/02/20 Principal diagnosis: Acute cholecystitis and pancreatitis This is a 64-year-old female presented to the ER on 02/26/20, and she was complaining of weakness confusion shortness of breath, and not feeling well for the last few days. Patient also complained of occasional cough, shortness of breath, but no sputum production. She had a low-grade fever of 99. And she also complained of abdominal discomfort. On physical examination, patient had generalized abdominal tenderness, and she had a temp of 99. She was also noted to have leukocytosis, slightly elevated lactic acid, and elevated liver enzymes. Lipase was high at 09/12/2005. Urinalysis was suspicious for urinary tract infection, CT of the abdomen and pelvis showed evidence of pancreatitis. And there was a large gallstone but no evidence of dilated ducts or cholecystitis. Chest x-ray showed mostly atelectasis and small bilateral pleural effusions. Patient was admitted, placed on IV antibiotics, IV fluids, and placed empirically on Levaquin and Zosyn. Admitting diagnoses was mostly pancreatitis, possible urinary tract infection, and possible pneumonia. Patient was seen on consultation by infectious disease, and it was felt that the patient may have sepsis, gallstone pancreatitis, and cholecystitis. Hence the recommendation was to start the patient on Zosyn, and general surgery was consulted for possible cholecystectomy. Patient is now scheduled for laparoscopic cholecystectomy on Wednesday. In the meantime the patient has been complaining of some shortness of breath, and I reviewed the chest x-ray clearly shows atelectasis, patient is not taking enough of a deep breath, and she definitely seems congested. Hence I recommended incentive spirometry, I also recommended DuoNeb updrafts 4 times a day and when necessary. No clear-cut evidence of pneumonia. Patient was advised to use incentive spirometry and advised to do deep coughing and deep breathing. Patient was reevaluated today on 03/02/20, evaluated on the medical floor, however the patient was noted to require more oxygen and she is now on 15 L high flow nasal cannula, O2 saturation is marginal, chest x-ray continues to show right basilar atelectasis, and the patient is unable to clear her secretions, she has a very weak cough. And seems to be congested but unable to clear any of her phlegm. Considering her worsening overall pulmonary status, and considering that the patient's requirement for oxygen is climbing, recommended transferring the patient to the ICU. Follow-up chest x-ray was reviewed and showed mostly worsening atelectasis. And small right-sided pleural effusion. Patient will be sent to the ICU, will possibly be placed on BiPAP, may even eventually require to be intubated if she doesn't improve much. Renal functioning is much worse today, BUN is 54 creatinine is 3.19. And bicarb is 16. WBC count is 16.9 hemoglobin is 13.2. Objective - Vital Signs Vital signs: Vital Signs Temp 98.1 F 03/02/20 11:30 Pulse 81 03/02/20 12:00 Resp 24 03/02/20 12:00 BP 87/54 03/02/20 12:00 Pulse Ox 97 03/02/20 12:00 Intake & Output 03/01/20 03/02/20 03/02/20 18:59 06:59 18:59 Intake Total 120 Output Total 100 0 Balance 120 -100 0 Weight 92 kg Intake: Oral 120 Output: Urine 100 0 Other: Voiding Method Indwelling Catheter Indwelling Catheter Indwelling Catheter # Voids 0 # Bowel Movements 0 - Exam Physical Exam: Revealed a 64-year-old female in no distress. On 15 L high flow nasal cannula Head: Atraumatic, normocephalic. HEENT:[Neck is supple.] [No neck masses.] [No thyromegaly.] [No JVD.] Chest: [Diminished breath sounds at the bases, rhonchi on forced expiratory maneuver. Patient has poor respiratory effort, unable to clear her secretions with deep coughing. Effort seems to be extremely poor Cardiac Exam: [Normal S1 and S2, no S3 gallop, no murmur.] Abdomen: [Soft, nontender, no megaly, no rebound, no guarding, normal bowel sounds.] Extremities: [No clubbing, no edema, no cyanosis.] Neurological Exam: [No focal neurologic deficit.] Alert and oriented 3. Psychiatric: Normal mood affect and normal mental status examination. Skin: No rashes. - Labs CBC & Chem 7: 03/02/20 10:34 03/02/20 10:34 Labs: Abnormal Lab Results - Last 24 Hours (Table) 03/01/20 03/01/20 03/01/20 Range/Units 13:00 16:14 16:14 WBC 19.2 H (3.8-10.6) k/uL MCV 100.9 H (80.0-100.0) fL Neutrophils # 16.0 H (1.3-7.7) k/uL Neutrophils # (Manual) (1.3-7.7) k/uL Monocytes # 1.1 H (0-1.0) k/uL Monocytes # (Manual) (0-1.0) k/uL Metamyelocytes # (Man) (0) k/uL Myelocytes # (Manual) (0) k/uL ABG pCO2 (35-45) mmHg ABG pO2 (83-108) mmHg ABG O2 Saturation (94-97) % Sodium (137-145) mmol/L Chloride (98-107) mmol/L Carbon Dioxide 19 L (22-30) mmol/L BUN 38 H (7-17) mg/dL Creatinine 1.98 H (0.52-1.04) mg/dL Glucose 113 H (74-99) mg/dL POC Glucose (mg/dL) (75-99) mg/dL Calcium 7.7 L (8.4-10.2) mg/dL AST 142 H (14-36) U/L ALT 46 H (4-34) U/L Alkaline Phosphatase 153 H (38-126) U/L C-Reactive Protein 317.3 H (<10.0) mg/L Total Protein 5.7 L (6.3-8.2) g/dL Albumin 3.0 L (3.5-5.0) g/dL 03/02/20 03/02/20 03/02/20 Range/Units 10:20 10:34 10:34 WBC 16.9 H (3.8-10.6) k/uL MCV 103.5 H (80.0-100.0) fL Neutrophils # (1.3-7.7) k/uL Neutrophils # (Manual) 12.80 H (1.3-7.7) k/uL Monocytes # (0-1.0) k/uL Monocytes # (Manual) 1.86 H (0-1.0) k/uL Metamyelocytes # (Man) 0.51 H (0) k/uL Myelocytes # (Manual) 0.34 H (0) k/uL ABG pCO2 31 L (35-45) mmHg ABG pO2 60 L (83-108) mmHg ABG O2 Saturation 93.5 L (94-97) % Sodium 136 L (137-145) mmol/L Chloride 108 H (98-107) mmol/L Carbon Dioxide 16 L (22-30) mmol/L BUN 54 H (7-17) mg/dL Creatinine 3.19 H (0.52-1.04) mg/dL Glucose (74-99) mg/dL POC Glucose (mg/dL) (75-99) mg/dL Calcium 7.7 L (8.4-10.2) mg/dL AST 80 H (14-36) U/L ALT 39 H (4-34) U/L Alkaline Phosphatase (38-126) U/L C-Reactive Protein (<10.0) mg/L Total Protein 5.6 L (6.3-8.2) g/dL Albumin 2.8 L (3.5-5.0) g/dL // Range/Units 11:08 WBC (3.8-10.6) k/uL MCV (80.0-100.0) fL Neutrophils # (1.3-7.7) k/uL Neutrophils # (Manual) (1.3-7.7) k/uL Monocytes # (0-1.0) k/uL Monocytes # (Manual) (0-1.0) k/uL Metamyelocytes # (Man) (0) k/uL Myelocytes # (Manual) (0) k/uL ABG pCO2 (35-45) mmHg ABG pO2 (83-108) mmHg ABG O2 Saturation (94-97) % Sodium (137-145) mmol/L Chloride (98-107) mmol/L Carbon Dioxide (22-30) mmol/L BUN (7-17) mg/dL Creatinine (0.52-1.04) mg/dL Glucose (74-99) mg/dL POC Glucose (mg/dL) 118 H (75-99) mg/dL Calcium (8.4-10.2) mg/dL AST (14-36) U/L ALT (4-34) U/L Alkaline Phosphatase (38-126) U/L C-Reactive Protein (<10.0) mg/L Total Protein (6.3-8.2) g/dL Albumin (3.5-5.0) g/dL Microbiology - Last 24 Hours (Table) 02/26/20 20:30 Blood Culture - Preliminary Blood No Growth after 96 hours 02/27/20 11:05 Blood Culture - Preliminary Blood No Growth after 72 hours Assessment and Plan Assessment: Impression: Shortness of breath secondary to bibasilar atelectasis and pleural effusions, and for respiratory effort to clear secretions. Gallstone pancreatitis Abdominal sepsis on presentation. History of closed head injury. Acute kidney injury, suspect prerenal azotemia secondary to diuresis. Recommendation: Transfer patient to ICU, placed on BiPAP, and monitor closely. Continue incentive spirometry. Continue updrafts in the form of DuoNeb 4 times a day and when necessary. Hold diuretics and hydrate the patient cautiously. Continue antibiotics as per infectious disease on the case for abdominal sepsis/cholecystitis. Encourage deep coughing and deep breathing. We'll continue to follow. Time with Patient: Less than 30
[2020-03-02] MEDS ORDERED: propofoL 100 ML IV ONE (13:21)
--- NOTE | 2020-03-02 14:12 | XR ---
EXAMINATION TYPE: XR chest 1V DATE OF EXAM: 03/02/2020 COMPARISON: Today HISTORY: Check tube placement TECHNIQUE: FINDINGS: Endotracheal tube is 3.5 cm from the pita. There is nasogastric tube in the stomach. Ther e is pulmonary edema. Heart appears enlarged. There are chest leads. There is some blunting of the co stophrenic angles. IMPRESSION: There is pulmonary edema and pleural fluid probably due to congestive heart failure appea rs slightly worse than exam 4 hours ago.
--- NOTE | 2020-03-02 14:14 | MISC ---
MISCELLANOUS REPORT OTHER CONDITION: Posttraumatic encephalopathy. MMODL / IJN: [id number] /
--- NOTE | 2020-03-02 14:14 | MISC ---
MISCELLANOUS REPORT Unable to determine. MMODL / IJN: [id number] /
[2020-03-02] MEDS: NOREPINEPHRINE 4 MG in SODIUM CHLORIDE 0.9% 250 ML IV SCH ×2 (14:52→20:17)
--- NOTE | 2020-03-02 15:11 | PN ---
PROGRESS NOTE CHIEF COMPLAINT: Abdominal pain. HISTORY OF PRESENT ILLNESS: This lady seems to be a little bit more stable than yesterday. The temperature is down. Legs are no longer mottled. PHYSICAL EXAMINATION: She is slightly more alert and awake than yesterday. She is difficult to evaluate in terms of how much discomfort she is having. Chest is clear. Cardiac exam demonstrates what sounds like sinus rhythm and the abdomen is slightly protuberant and she is very tender with guarding. Bowel sounds are present. Her legs are well perfused and warm. There is no cyanosis. IMPRESSION: 1. Pancreatitis. 2. Cholelithiasis. 3. Cholecystitis. 4. Posttraumatic encephalopathy. PLAN: Continue with IV fluids and antibiotics and it is planned that she will go to the operating room on Wednesday. MARLEY / LUIS ENRIQUEN: [id number] /
--- NOTE | 2020-03-02 15:11 | PN ---
PROGRESS NOTE DATE OF SERVICE: 03/01/2020. CHIEF COMPLAINT: Abdominal pain and pancreatitis with cholecystitis and cholelithiasis. HISTORY OF PRESENT ILLNESS: This lady's course has become more bushra. She is having more abdominal pain and seems to be somewhat more delirious. She is being followed by Surgery and Infectious Disease. Surgery is planning on taking her to the operating room for a cholecystectomy. REVIEW OF SYSTEMS: Cannot be obtained due to her encephalopathy. PHYSICAL EXAMINATION: Chest is clear. The cardiac exam demonstrates tachycardia. The abdomen is slightly protuberant and she is very tender throughout. There are no detectable masses, but she does not allow deep palpation. Bowel sounds are present. There is slight rebound. Lower extremities are mottled. IMPRESSION: 1. Urinary tract infection. 2. Pancreatitis. 3. Cholecystitis. 4. Cholelithiasis. 5. Possible sepsis. PLAN: 1. Continue with IV fluids and antibiotics. 2. Analgesics. 3. She may have to be taken to the operating room, which she currently is being planned for Wednesday. MMODL / IJN: [id number] /
[2020-03-02 15:37] LABS: ABG Base Excess -7.1 mmol/L; ABG HCO3 20 mmol/L (21-25); ABG Oxygen Saturation 99.1 % (94-97); ABG PCO2 43 mmHg (35-45); ABG PH 7.27 (7.35-7.45); ABG PO2 211 mmHg (83-108); ABG TCO2 21 mmol/L (19-24); Allen Test Performed? Yes
--- NOTE | 2020-03-02 15:41 | PN ---
PROGRESS NOTE DATE OF SERVICE: 03/02/2020 REASON FOR FOLLOWUP: Acute pancreatitis. INTERVAL HISTORY: Patient has been transferred down to the ICU because of worsening respiratory status. The patient ended up getting intubated. She did have significant amount of NG output after one was placed in almost ( ). The abdomen is less distended now. The patient's blood pressure did drop with sedation for the intubation. No vomiting or any other changes have been reported by nursing staff. Patient herself was not providing any history. Currently on the vent. PHYSICAL EXAMINATION: Blood pressure 82/48 with a pulse of 82, temperature 98.1. General description is an elderly female intubated on the vent. Respiratory system: Unlabored breathing, coarse breath sounds bilaterally. Heart S1, S2. Regular rate and rhythm. Abdomen soft, distended. No guarding or rigidity. LABS: Hemoglobin 13.8, white count 16.9, BUN of 54, creatinine 3.19. DIAGNOSTIC IMPRESSION AND PLAN: Patient with admission to the hospital with abdominal pain, vomiting. Has been diagnosed with acute pancreatitis, possible gallstone related, now with worsening respiratory status and worsening of her kidney function which has been related to the CT angiogram that was done for the shortness of breath with contrast. Zosyn dose has been adjusted ( ) continue and will monitor clinical course closely. MMODL / IJN: [id number] /
--- NOTE | 2020-03-02 15:47 | PN ---
PROGRESS NOTE DATE OF SERVICE: 02/29/2020. CHIEF COMPLAINT: Abdominal pain with pancreatitis and cholecystitis. HISTORY OF PRESENT ILLNESS: This lady is still having some discomfort. Her white count has dropped slightly. She is being followed by Surgery. PHYSICAL EXAMINATION: Chest is clear. Cardiac exam is normal. She does have a slight tachycardia. The abdomen is slightly protuberant. She is high speed warper tender over the epigastrium. Extremities normal. IMPRESSION: 1. Pancreatitis. 2. Urinary tract infection. 3. Cholecystitis and cholelithiasis. 4. Closed head injury with left hemiparesis. PLAN: Continue with IV fluids and antibiotics and repeat laboratory studies. MMODL / IJN: [id number] /
[2020-03-02] MEDS ORDERED: SODIUM BICARB 8.4% 50 ML SYR (1 MEQ/ML) IV STA (15:51)
[2020-03-02] MEDS: OXYBUTYNIN 15 MG TAB.ER.24 PO SCH (20:09)
[2020-03-02] MEDS: CHLORHEXIDINE GLUCONATE 15 ML CUP MUCOUS MEM SCH (20:16)
[2020-03-02] MEDS: SODIUM CHLORIDE 0.9% 1,000 ML IV SCH (21:19)
[2020-03-03] MEDS: NOREPINEPHRINE 4 MG in SODIUM CHLORIDE 0.9% 250 ML IV SCH ×5 (00:16→19:51)
[2020-03-03 05:41] LABS: HCT 34.3 % (34.0-46.0); HGB 11.3 gm/dL (11.4-16.0); Hypochromasia Slight; MCH 34.1 pg (25.0-35.0); MCHC 32.9 g/dL (31.0-37.0); MCV 103.5 fL (80.0-100.0); Macrocytosis Slight; Mean Platelet Volume 8.6; Platelet Count 293 k/uL (150-450); RBC 3.31 m/uL (3.80-5.40); RDW 14.7 % (11.5-15.5); WBC 30.5 k/uL (3.8-10.6)
[2020-03-03 05:58] LABS: Calcium 6.8 mg/dL (8.4-10.2); Potassium 3.3 mmol/L (3.5-5.1)
[2020-03-03 06:49] LABS: Band Neutrophils % 45 %; Lymphocytes # (M) 0.92 k/uL (1.0-4.8); Metamyelocytes # (M) 0.61 k/uL (0); Metamyelocytes % 2 %; Monocytes # (M) 0.31 k/uL (0-1.0); Neutrophils % (M) 50 %; Nucleated Red Blood Cells 0 /100 WBC (0-0); Total Cells Counted 200
[2020-03-03 06:50] LABS: Anisocytosis (M) Present
[2020-03-03 06:51] LABS: Polychromasia Present
--- NOTE | 2020-03-03 06:51 | XR ---
EXAMINATION TYPE: XR chest 1V portable DATE OF EXAM: 03/03/2020 HISTORY: Tube placement. REFERENCE: Previous study dated 03/02/2020. FINDINGS: The patient's ET tube and NG tube remain in place, unchanged in appearance. There is worsening bibasilar airspace disease. There are bilateral effusions. Heart size is obscured. IMPRESSION: 1. WORSENING BILATERAL PNEUMONIAS. 2. BILATERAL EFFUSIONS.
[2020-03-03] MEDS: IPRATROPIUM-ALBUTEROL 3 ML NEB INHALATION SCH ×4 (07:14→19:25)
[2020-03-03] MEDS: SODIUM CHLORIDE 0.9% 1,000 ML IV SCH ×2 (07:51→17:53)
[2020-03-03] MEDS: LEVOTHYROXINE 100 MCG TAB PO SCH (07:52)
[2020-03-03] MEDS: FLUoxetine HCL 20 MG CAP PO SCH (07:52)
[2020-03-03] MEDS: IMIPRAMINE 10 MG TAB PO SCH ×3 (07:52→19:56)
[2020-03-03 08:33] LABS: ABG Base Excess -6.5 mmol/L; ABG HCO3 20 mmol/L (21-25); ABG Oxygen Saturation 91.9 % (94-97); ABG PCO2 44 mmHg (35-45); ABG PH 7.28 (7.35-7.45); ABG PO2 60 mmHg (83-108); ABG TCO2 22 mmol/L (19-24)
[2020-03-03 08:37] LABS: Allen Test Performed? no
[2020-03-03] MEDS: CHLORHEXIDINE GLUCONATE 15 ML CUP MUCOUS MEM SCH ×2 (08:37→20:02)
[2020-03-03] MEDS: PIPERACILLIN-TAZOBACTAM 3.375 GM in SODIUM CHLORIDE 0.9% 100 ML IVPB SCH (08:38)
[2020-03-03] MEDS ORDERED: SODIUM CHLORIDE 0.9% 1,000 ML IV ONE ×2 (08:52→10:35)
[2020-03-03] MEDS ORDERED: Potassium Replacement Protocol 1 EACH MISC MISCELLANE PRN (09:29)
--- NOTE | 2020-03-03 10:19 | XR ---
EXAMINATION TYPE: XR chest 1V portable DATE OF EXAM: 03/03/2020 HISTORY: central line. REFERENCE: Previous study dated 03/03/2020. FINDINGS: The patient is ET tube and NG tube remain in place, unchanged in appearance. A left subclav ayden catheter is been inserted. Its tip is at the cavoatrial junction. There continues be bibasilar airspace disease. Heart size is largely obscured. I could not exclude sm all effusions. IMPRESSION: I DO NOT SEE A POST CATHETER INSERTION COMPLICATION.
[2020-03-03 11:49] LABS: Glucose,Whole Blood 123 mg/dL (75-99)
--- NOTE | 2020-03-03 12:27 | P.PN ---
Subjective Progress Note Date: 03/03/20 Principal diagnosis: Acute cholecystitis and pancreatitis This is a 64-year-old female presented to the ER on 02/26/20, and she was complaining of weakness confusion shortness of breath, and not feeling well for the last few days. Patient also complained of occasional cough, shortness of breath, but no sputum production. She had a low-grade fever of 99. And she also complained of abdominal discomfort. On physical examination, patient had generalized abdominal tenderness, and she had a temp of 99. She was also noted to have leukocytosis, slightly elevated lactic acid, and elevated liver enzymes. Lipase was high at 09/12/2005. Urinalysis was suspicious for urinary tract infection, CT of the abdomen and pelvis showed evidence of pancreatitis. And there was a large gallstone but no evidence of dilated ducts or cholecystitis. Chest x-ray showed mostly atelectasis and small bilateral pleural effusions. Patient was admitted, placed on IV antibiotics, IV fluids, and placed empirically on Levaquin and Zosyn. Admitting diagnoses was mostly pancreatitis, possible urinary tract infection, and possible pneumonia. Patient was seen on consultation by infectious disease, and it was felt that the patient may have sepsis, gallstone pancreatitis, and cholecystitis. Hence the recommendation was to start the patient on Zosyn, and general surgery was consulted for possible cholecystectomy. Patient is now scheduled for laparoscopic cholecystectomy on Wednesday. In the meantime the patient has been complaining of some shortness of breath, and I reviewed the chest x-ray clearly shows atelectasis, patient is not taking enough of a deep breath, and she definitely seems congested. Hence I recommended incentive spirometry, I also recommended DuoNeb updrafts 4 times a day and when necessary. No clear-cut evidence of pneumonia. Patient was advised to use incentive spirometry and advised to do deep coughing and deep breathing. Patient was reevaluated today on 03/02/20, evaluated on the medical floor, however the patient was noted to require more oxygen and she is now on 15 L high flow nasal cannula, O2 saturation is marginal, chest x-ray continues to show right basilar atelectasis, and the patient is unable to clear her secretions, she has a very weak cough. And seems to be congested but unable to clear any of her phlegm. Considering her worsening overall pulmonary status, and considering that the patient's requirement for oxygen is climbing, recommended transferring the patient to the ICU. Follow-up chest x-ray was reviewed and showed mostly worsening atelectasis. And small right-sided pleural effusion. Patient will be sent to the ICU, will possibly be placed on BiPAP, may even eventually require to be intubated if she doesn't improve much. Renal functioning is much worse today, BUN is 54 creatinine is 3.19. And bicarb is 16. WBC count is 16.9 hemoglobin is 13.2. Patient was reevaluated today on 03/03/20, shortly after the patient was transferred yesterday from the medical floor to the ICU, patient was noted to have abdominal distention, and I recommended nasogastric tube for decompression. Patient had a significant gastric output, and it was coffee ground material, in the process of having a nasogastric tube placed, the patient vomited, and she may have aspirated. Patient developed profound shortness of breath, hypotension, and her breathing was noted to be agonal, hence I recommended immediate intubation. Patient was intubated and placed on mechanical ventilation. She also required norepinephrine for hypotension fluid boluses and remains on antibiotics/Zosyn. Her ventilator settings today are assist control rate of 20 tidal volume 400 increased to 450 FiO2 increased to 55% and PEEP increased to 8. Patient has leukocytosis with WBC count of 30 thousand, blood cultures are positive for gram-negative in the blood. ABG showed a pO2 of 59 pCO2 of 43 pH of 7.27. Presently on propofol at 50 mcg/kg/m and norepinephrine at 0.17 mcg/kg/m. Continues to have significant gastric output, and the material seems to be coffee-ground. CODE STATUS has been changed by her sister to DO NOT RESUSCITATE. Today because of the patient requiring pressors, I went ahead and placed a left subclavian central line in this patient. Chest x-ray is suggestive of bibasilar pneumonia, most likely consistent with aspiration and th e patient had significant bibasilar atelectasis prior to coming to the ICU. Objective - Vital Signs Vital signs: Vital Signs Temp 98.3 F 03/03/20 08:00 Pulse 74 03/03/20 12:07 Resp 20 03/03/20 11:00 BP 79/43 03/03/20 00:00 Pulse Ox 95 03/03/20 11:00 Intake & Output 03/02/20 03/03/20 03/03/20 18:59 06:59 18:59 Intake Total 2307.614 2150.303 878.733 Output Total 4530 1115 550 Balance -2222.386 1035.303 328.733 Weight 95.8 kg Intake: IV 500 1300 500 Piperacillin-Tazobactam 3 100 .375 gm In Sodium Chloride 0.9% 100 ml @ 25 mls/hr IVPB Q12HR [facility] Rx #:[id number] Sodium Chloride 0.9% 1, 500 1200 400 000 ml @ 100 mls/hr IV . Q10H [facility] Rx#:[id number] Sodium Chloride 0.9% 1, 100 000 ml @ 999 mls/hr IV . Q1H1M [facility] Rx#:[id number] Intake, IV Titration 1807.614 850.303 378.733 Amount Norepinephrine 4 mg In 181.394 550.303 254.993 Sodium Chloride 0.9% 250 ml @ 0.05 MCG/KG/MIN 17. 526 mls/hr IV .[id number] [facility] Rx#:[id number] Piperacillin-Tazobactam 3 100 .375 gm In Sodium Chloride 0.9% 100 ml @ 25 mls/hr IVPB Q12HR [facility] Rx #:[id number] Sodium Chloride 0.9% 500 1500 ml 500 ml @ 999 mls/hr IV .Q31M [facility] Rx#:[id number] propofoL 1,000 mg In 26.22 300 123.74 Empty Bag 1 bag @ Titrate IV .Q0M [facility] Rx#: [id number] Output: Gastric Drainage 4500 800 400 Urine 30 315 150 Other: Voiding Method Indwelling Catheter Indwelling Catheter Indwelling Catheter ABP, PAP, CO, CI - Last Documented Arterial Blood Pressure 90/43 - Exam Physical Exam: Revealed a 64-year-old female, on mechanical ventilation, sedated, on propofol. Head: Atraumatic, normocephalic. Endotracheal tube and orogastric tube are intact. HEENT:[Neck is supple.] [No neck masses.] [No thyromegaly.] [No JVD.] Chest: [Symmetrical chest expansion, crackles and rhonchi noted bilaterally. Cardiac Exam: [Normal S1 and S2, no S3 gallop, no murmur.] Abdomen: [Slightly distended, but soft, nontender, no megaly, diminished bowel sounds. Extremities: [No clubbing, no edema, no cyanosis.] Neurological Exam: Cannot assess, patient is sedated on propofol. Psychiatric: Could not be assessed. Skin: No rashes. - Labs CBC & Chem 7: 03/03/20 05:20 03/03/20 05:20 Labs: Abnormal Lab Results - Last 24 Hours (Table) 03/02/20 03/03/20 03/03/20 Range/Units 15:36 05:20 05:20 WBC 30.5 H (3.8-10.6) k/uL RBC 3.31 L (3.80-5.40) m/uL Hgb 11.3 L (11.4-16.0) gm/dL MCV 103.5 H (80.0-100.0) fL Neutrophils # (Manual) 28.90 H (1.3-7.7) k/uL Lymphocytes # (Manual) 0.92 L (1.0-4.8) k/uL Metamyelocytes # (Man) 0.61 H (0) k/uL ABG pH 7.27 L (7.35-7.45) ABG pO2 211 H (83-108) mmHg ABG HCO3 20 L (21-25) mmol/L ABG O2 Saturation 99.1 H (94-97) % Potassium 3.3 L (3.5-5.1) mmol/L Chloride 110 H (98-107) mmol/L Carbon Dioxide 19 L (22-30) mmol/L BUN 51 H (7-17) mg/dL Creatinine 2.96 H (0.52-1.04) mg/dL Glucose 109 H (74-99) mg/dL POC Glucose (mg/dL) (75-99) mg/dL Calcium 6.8 L (8.4-10.2) mg/dL 03/03/20 03/03/20 Range/Units 08:31 11:47 WBC (3.8-10.6) k/uL RBC (3.80-5.40) m/uL Hgb (11.4-16.0) gm/dL MCV (80.0-100.0) fL Neutrophils # (Manual) (1.3-7.7) k/uL Lymphocytes # (Manual) (1.0-4.8) k/uL Metamyelocytes # (Man) (0) k/uL ABG pH 7.28 L (7.35-7.45) ABG pO2 60 L (83-108) mmHg ABG HCO3 20 L (21-25) mmol/L ABG O2 Saturation 91.9 L (94-97) % Potassium (3.5-5.1) mmol/L Chloride (98-107) mmol/L Carbon Dioxide (22-30) mmol/L BUN (7-17) mg/dL Creatinine (0.52-1.04) mg/dL Glucose (74-99) mg/dL POC Glucose (mg/dL) 123 H (75-99) mg/dL Calcium (8.4-10.2) mg/dL Microbiology - Last 24 Hours (Table) 02/26/20 20:30 Blood Culture - Preliminary Blood No Growth after 120 hours 03/01/20 14:50 Blood Culture - Preliminary Blood No Growth after 24 hours 02/27/20 11:05 Blood Culture - Preliminary Blood No Growth after 96 hours Assessment and Plan Assessment: Impression: Acute hypoxic respiratory failure, multifactorial, secondary to bibasilar atelectasis, aspiration pneumonia, and septic shock with gram-negative bacteremia, most likely source is her cholecystitis. Gallstone pancreatitis Abdominal sepsis on presentation. History of closed head injury. Acute kidney injury, most likely secondary to sepsis and septic shock, although hypovolemia was an issue prior to transfer to ICU. Could have been intubating factor to her renal injury. Recommendation: Continue ventilatory support. Continue IV fluids and hemodynamic support. Hold on feeding for now, patient has a significant gastric output, and will increase Protonix to 40 mg IV push twice a day. Continue antibiotics, patient is presently on Zosyn, and her blood culture was positive for gram-negative bacilli. Being followed by infectious disease. Continue updrafts in the form of DuoNeb 4 times a day and when necessary. Continue to hydrate the patient, and monitor electrolytes and renal profile. Lines were placed including a central line placed today, and she had an arterial line placed by ANDREA yesterday. Overall prognosis seems to be extremely poor and guarded. We will continue to follow. Critical care time is 35 minutes, not including the time spent on procedures.. We'll continue to follow. Time with Patient: Greater than 30
--- NOTE | 2020-03-03 12:33 | PCN ---
PROCEDURE NOTE PROCEDURE PERFORMED: Placement of the left subclavian triple-lumen catheter. PREOPERATIVE DIAGNOSES: Acute septic shock and acute bacteremia. POSTOPERATIVE DIAGNOSES: Acute septic shock and acute bacteremia. ANESTHESIA USED: 2 mL of 1% lidocaine. PROCEDURE: The patient was placed in a Trendelenburg position. The area of the left subclavian region was prepared in a sterile fashion and drapes were applied. The area below the clavicle was anesthetized. Then using the infraclavicular approach, the left subclavian vein was easily cannulated, and a guidewire was placed. A triple-lumen catheter was inserted over the guidewire, and the guidewire was removed. Good blood flow was noted in the 3 different ports of the triple-lumen catheter. The line was secured using 3.0 silk sutures. Chest x-ray showed no evidence of any immediate complications. MMROS / LUIS ENRIQUEN: [id number] /
[2020-03-03] MEDS: PANTOPRAZOLE 40 MG/10 ML VIAL IVP SCH ×2 (12:41→20:04)
[2020-03-03] MEDS: POTASSIUM CHLORIDE 20 MEQ in WATER FOR INJECTION 1 100ML.BAG IVPB SCH ×2 (12:41→15:28)
[2020-03-03 12:59] LABS: ABG Base Excess -8.7 mmol/L; ABG HCO3 18 mmol/L (21-25); ABG Oxygen Saturation 96.1 % (94-97); ABG PCO2 38 mmHg (35-45); ABG PH 7.29 (7.35-7.45); ABG PO2 77 mmHg (83-108); ABG TCO2 19 mmol/L (19-24); Allen Test Performed? no
--- NOTE | 2020-03-03 12:59 | P.PN ---
Subjective Progress Note Date: 03/03/20 CHIEF COMPLAINT: Pancreatitis HISTORY OF PRESENT ILLNESS: The patient is a 64-year-old female who presented with gallstone pancreatitis. Over the weekend, patient was transferred from the floor to the ICU secondary to hypoxia. Chest x-ray confirmed dilated stomach. Patient was on a BiPAP machine. Upon discussion with the charge nurse of the ICU, a nasogastric tube was attempted when patient had moderate bilious emesis over 5000 L. Patient had aspiration pneumonia as a result. She has been intu bated. White count elevated over 30,000. Patient is a DO NOT RESUSCITATE. Her sister is her power of attorney recruiter. Initially, patient was scheduled for laparoscopic cholecystectomy tomorrow. Patient is now on Levophed. Central line placement noted along the left subclavian. ROS: Large emesis including NG tube output over 5700 mL. Total output over 6 L in less than 12 hours. PHYSICAL EXAM: VITAL SIGNS: Reviewed CONSTITUTIONAL: Well developed and in no acute distress. EYES: Conjuctivae without sclera icterus. HEAD, EARS, NOSE, THROAT: Moist buccal mucosa. Head is atraumatic, normocepha lic. Hears conversational speech. No nasal drainage. NECK: Supple. No thyroidomegaly. RESPIRATORY: Non-labored respirations and equal bilateral excursions. CARDIOVASCULAR: Palpable 2+ radial pulses. ABDOMEN: NG frankly bilious. Abdomen protuberant. : Urine dark and scant MUSCULOSKELETAL: No gross deformity of the lower extremities noted. No clubbing. No cyanosis. SKIN: Good skin turgor. Well perfused. NEUROLOGIC: Patient sedated PSYCH: Patient sedated LABS: Reviewed. WBC down from 19.2 to 16.9, now 30,000. Creatinine elevated 1.98 to 3.19, now 2.96. Lipase 160 from yesterday STUDIES: Chest xray report confirms severe pneumonia. ASSESSMENT: 1. Gallstone pancreatitis 2. Aspiration pneumonia 3. Sepsis PLAN: 1. As patient now has sepsis due to aspiration pneumonia, patient extremely elevated risk for any surgical intervention 2. Antibiotic management. 3. Patient high risk for ARDS. Objective - Vital Signs Vital signs: Vital Signs Temp 97.8 F 03/03/20 12:00 Pulse 73 03/03/20 12:30 Resp 20 03/03/20 12:30 BP 79/43 03/03/20 00:00 Pulse Ox 94 L 03/03/20 12:30 Intake & Output 03/02/20 03/03/20 03/03/20 18:59 06:59 18:59 Intake Total 2307.614 2150.303 981.733 Output Total 4530 1115 595 Balance -2222.386 1035.303 386.733 Weight 95.8 kg Intake: IV 500 1300 603 0.9NS flush 3 Piperacillin-Tazobactam 3 100 .375 gm In Sodium Chloride 0.9% 100 ml @ 25 mls/hr IVPB Q12HR [facility] Rx #:[id number] Sodium Chloride 0.9% 1, 500 1200 500 000 ml @ 100 mls/hr IV . Q10H [facility] Rx#:[id number] Sodium Chloride 0.9% 1, 100 000 ml @ 999 mls/hr IV . Q1H1M [facility] Rx#:[id number] Intake, IV Titration 1807.614 850.303 378.733 Amount Norepinephrine 4 mg In 181.394 550.303 254.993 Sodium Chloride 0.9% 250 ml @ 0.05 MCG/KG/MIN 17. 526 mls/hr IV .[id number] [facility] Rx#:[id number] Piperacillin-Tazobactam 3 100 .375 gm In Sodium Chloride 0.9% 100 ml @ 25 mls/hr IVPB Q12HR [facility] Rx #:[id number] Sodium Chloride 0.9% 500 1500 ml 500 ml @ 999 mls/hr IV .Q31M [facility] Rx#:[id number] propofoL 1,000 mg In 26.22 300 123.74 Empty Bag 1 bag @ Titrate IV .Q0M [facility] Rx#: [id number] Output: Gastric Drainage 4500 800 400 Urine 30 315 195 Other: Voiding Method Indwelling Catheter Indwelling Catheter Indwelling Catheter ABP, PAP, CO, CI - Last Documented Arterial Blood Pressure 97/47 - Labs CBC & Chem 7: 03/03/20 05:20 03/03/20 05:20 Labs: Abnormal Lab Results - Last 24 Hours (Table) 03/02/20 03/03/20 03/03/20 Range/Units 15:36 05:20 05:20 WBC 30.5 H (3.8-10.6) k/uL RBC 3.31 L (3.80-5.40) m/uL Hgb 11.3 L (11.4-16.0) gm/dL MCV 103.5 H (80.0-100.0) fL Neutrophils # (Manual) 28.90 H (1.3-7.7) k/uL Lymphocytes # (Manual) 0.92 L (1.0-4.8) k/uL Metamyelocytes # (Man) 0.61 H (0) k/uL ABG pH 7.27 L (7.35-7.45) ABG pO2 211 H (83-108) mmHg ABG HCO3 20 L (21-25) mmol/L ABG O2 Saturation 99.1 H (94-97) % Potassium 3.3 L (3.5-5.1) mmol/L Chloride 110 H (98-107) mmol/L Carbon Dioxide 19 L (22-30) mmol/L BUN 51 H (7-17) mg/dL Creatinine 2.96 H (0.52-1.04) mg/dL Glucose 109 H (74-99) mg/dL POC Glucose (mg/dL) (75-99) mg/dL Calcium 6.8 L (8.4-10.2) mg/dL 03/03/20 03/03/20 Range/Units 08:31 11:47 WBC (3.8-10.6) k/uL RBC (3.80-5.40) m/uL Hgb (11.4-16.0) gm/dL MCV (80.0-100.0) fL Neutrophils # (Manual) (1.3-7.7) k/uL Lymphocytes # (Manual) (1.0-4.8) k/uL Metamyelocytes # (Man) (0) k/uL ABG pH 7.28 L (7.35-7.45) ABG pO2 60 L (83-108) mmHg ABG HCO3 20 L (21-25) mmol/L ABG O2 Saturation 91.9 L (94-97) % Potassium (3.5-5.1) mmol/L Chloride (98-107) mmol/L Carbon Dioxide (22-30) mmol/L BUN (7-17) mg/dL Creatinine (0.52-1.04) mg/dL Glucose (74-99) mg/dL POC Glucose (mg/dL) 123 H (75-99) mg/dL Calcium (8.4-10.2) mg/dL Microbiology - Last 24 Hours (Table) 02/26/20 20:30 Blood Culture - Preliminary Blood No Growth after 120 hours 03/01/20 14:50 Blood Culture - Preliminary Blood No Growth after 24 hours 02/27/20 11:05 Blood Culture - Preliminary Blood No Growth after 96 hours Assessment and Plan (1) Cholecystitis Current Visit: Yes Status: Acute Code(s): K81.9 - CHOLECYSTITIS, UNSPECIFIED SNOMED Code(s): 13849804 (2) Gallstone pancreatitis Current Visit: Yes Status: Acute Code(s): K85.10 - BILIARY ACUTE PANCREATITIS WITHOUT NECROSIS OR INFECTION SNOMED Code(s): 93639959 (3) Pancreatitis Current Visit: Yes Status: Acute Code(s): K85.90 - ACUTE PANCREATITIS WITHOUT NECROSIS OR INFECTION, UNSP SNOMED Code(s): 60797566 (4) Aspiration pneumonia due to gastric secretions Current Visit: Yes Status: Acute Code(s): J69.0 - PNEUMONITIS DUE TO INHALATION OF FOOD AND VOMIT SNOMED Code(s): 36035437 (5) Sepsis Current Visit: Yes Status: Acute Code(s): A41.9 - SEPSIS, UNSPECIFIED ORGANISM SNOMED Code(s): 34801228
--- NOTE | 2020-03-03 13:00 | ECHOF ---
Referral Reason:sob MEASUREMENTS -------- HEIGHT: 167.6 cm WEIGHT: 84.4 kg BP: 115/55 IVSd: 1.1 cm (0.6 - 1.1) LVIDd: 3.2 cm (3.9 - 5.3) LVPWd: 1.2 cm (0.6 - 1.1) IVSs: 1.5 cm LVIDs: 2.2 cm LVPWs: 1.2 cm LA Diam: 2.4 cm (2.7 - 3.8) RVIDd: 2.1 cm (< 3.3) LAESV Index (A-L): 11.27 ml/m Ao Diam: 2.9 cm (2.0 - 3.7) AV Cusp: 1.8 cm (1.5 - 2.6) EPSS: 0.2 cm MV E Selvin: 0.61 m/s MV DecT: 205 ms MV A Selvin: 0.73 m/s MV E/A Ratio: 0.84 RAP: 5.00 mmHg RVSP: 32.12 mmHg MV EF SLOPE: 13.54 mm/s (70 - 150) MV EXCURSION: 14.84 mm (> 18.000) FINDINGS -------- Sinus rhythm. This was a technically adequate study. The left ventricular size is normal. There is borderline concentric left ventricular hypertrophy. Overall left ventricular systolic function is normal with, an EF between 65 - 70 %. The right ventricle is normal in size. Normal LA size by volume 22+/-6 ml/m2. The right atrium is normal in size. Interatrial and interventricular septum intact. There is mild aortic valve sclerosis. The mitral valve is normal. Mild tricuspid regurgitation present. Right ventricular systolic pressure is normal at < 35 mmHg. There is no pulmonic regurgitation present. The aortic root size is normal. IVC Not well visulized. There is no pericardial effusion. CONCLUSIONS -------- 1. The left ventricular size is normal. 2. There is borderline concentric left ventricular hypertrophy. 3. Overall left ventricular systolic function is normal with, an EF between 65 - 70 %. 4. There is mild aortic valve sclerosis. 5. Mild tricuspid regurgitation present. 6. Right ventricular systolic pressure is normal at < 35 mmHg. 7. There is no pericardial effusion. SENIOR POLICY ASSOCIATE: Miladis Her [facility]
[2020-03-03 18:18] LABS: Glucose,Whole Blood 100 mg/dL (75-99)
[2020-03-03] MEDS: OXYBUTYNIN 15 MG TAB.ER.24 PO SCH (19:56)
[2020-03-03] MEDS: MEROPENEM 1 GM in SODIUM CHLORIDE 0.9% 100 ML IVPB SCH (20:19)
--- NOTE | 2020-03-03 21:48 | PN ---
PROGRESS NOTE DATE OF SERVICE: 03/03/2020 REASON FOR FOLLOW UP: Sepsis secondary to gallstone pancreatitis. INTERVAL HISTORY: Patient is currently afebrile. The patient is currently hemodynamically stable, not on any pressor support. FiO2 is currently at 55%. No significant purulent secretion through the ET or any diarrhea has been reported by nursing staff. PHYSICAL EXAMINATION: Blood pressure is 108/47 with a pulse of 74, temperature 97.6. She is 93% on 50% FiO2. General description is an elderly female lying in bed in no distress. Respiratory system: Unlabored breathing. Clear to auscultation anteriorly. Heart S1-S2 regular rate and rhythm. ABDOMEN: Soft, no distention. EXTREMITIES: No edema of the feet. LABS: Hemoglobin 11.1, white count up to 30.5. BUN of 51, creatinine is 2.96. DIAGNOSTIC IMPRESSION AND PLAN: Patient with sepsis, source is acute gallstone pancreatitis in this patient who did have overall worsening of her clinical condition as well as the kidney function with white count jumping up to 30,000 with concern for necrotizing pancreatitis. Antibiotic will be adjusted to meropenem 1 g q.12h. Dose has been adjusted with kidney function and we will monitor clinical course closely. MMODL / IJN: [id number] /
--- NOTE | 2020-03-03 22:03 | PN ---
PROGRESS NOTE CHIEF COMPLAINT: Aspiration pneumonia. HISTORY OF PRESENT ILLNESS: This lady vomited and started aspirating. NG tube was placed and apparently 5200 mL of fluid were extracted from the stomach. She is now on a ventilator. PHYSICAL EXAM: Unremarkable. Chest is fairly clear on the ventilator. At the present time, blood pressure is 98/46 with a pulse of 73. Cardiac exam is normal and the abdomen is protuberant, soft and seems not to be tender. No definite masses. IMPRESSION: 1. Aspiration pneumonia. 2. Cholecystitis. 3. Cholelithiasis. 4. Pancreatitis, possible sepsis. PLAN: Continue to follow with intensive Medicine and General surgery while she is in the intensive care unit. MMODL / IJN: [id number] /
[2020-03-03 23:16] LABS: Glucose,Whole Blood 94 mg/dL (75-99)
[2020-03-03] MEDS: NOREPINEPHRINE 32 MG in SODIUM CHLORIDE 0.9% 218 ML IV SCH (23:51)
[2020-03-03] MEDS: INSULIN ASPART (NovoLOG) 100 UNIT/ML VIAL SQ SCH (23:51)
[2020-03-04] MEDS ORDERED: MEROPENEM 1 GM in SODIUM CHLORIDE 0.9% 100 ML IVPB SCH ×2
[2020-03-04] MEDS ORDERED: SODIUM CHLORIDE 0.9% 1,000 ML IV ONE (00:36)
[2020-03-04] MEDS ORDERED: SODIUM CHLORIDE 0.9% 150 ML with VASOPRESSIN 60 UNIT IV SCH ×4 (01:00→02:00)
[2020-03-04 01:10] LABS: HCT 31.4 % (34.0-46.0); HGB 10.1 gm/dL (11.4-16.0); Hypochromasia Slight; MCH 32.9 pg (25.0-35.0); MCHC 32.3 g/dL (31.0-37.0); MCV 101.9 fL (80.0-100.0); Macrocytosis Slight; Platelet Count 278 k/uL (150-450); Poikilocytosis Slight; RBC 3.08 m/uL (3.80-5.40); RDW 14.7 % (11.5-15.5); WBC 31.5 k/uL (3.8-10.6)
[2020-03-04 01:24] LABS: Albumin 1.8 g/dL (3.5-5.0); Calcium 6.5 mg/dL (8.4-10.2); Potassium 3.4 mmol/L (3.5-5.1); Total Bilirubin 0.3 mg/dL (0.2-1.3); Total Protein 3.8 g/dL (6.3-8.2)
[2020-03-04 01:27] LABS: Band Neutrophils % 61 %; Eosinophils # (M) 0.32 k/uL (0-0.7); Metamyelocytes # (M) 0.95 k/uL (0); Metamyelocytes % 3 %; Monocytes # (M) 0.32 k/uL (0-1.0); Neutrophils % (M) 34 %; Nucleated Red Blood Cells 0 /100 WBC (0-0); Total Cells Counted 200
[2020-03-04 01:28] LABS: Toxic Granulation Present
[2020-03-04] MEDS: SODIUM CHLORIDE 0.9% 1,000 ML IV SCH (03:15)
[2020-03-04 04:27] LABS: HCT 32.6 % (34.0-46.0); HGB 10.8 gm/dL (11.4-16.0); Hypochromasia Slight; MCHC 33.2 g/dL (31.0-37.0); MCV 102.4 fL (80.0-100.0); Macrocytosis Slight; Mean Platelet Volume 9.6; Platelet Count 290 k/uL (150-450); Poikilocytosis Slight; RBC 3.18 m/uL (3.80-5.40); RDW 14.9 % (11.5-15.5); WBC 39.7 k/uL (3.8-10.6)
[2020-03-04 04:38] LABS: Calcium 6.6 mg/dL (8.4-10.2); Potassium 3.5 mmol/L (3.5-5.1)
[2020-03-04 05:09] LABS: Glucose,Whole Blood 102 mg/dL (75-99)
[2020-03-04] MEDS: INSULIN ASPART (NovoLOG) 100 UNIT/ML VIAL SQ SCH ×3 (05:09→18:16)
[2020-03-04 05:52] LABS: ABG Base Excess -10.2 mmol/L; ABG HCO3 17 mmol/L (21-25); ABG Oxygen Saturation 96.8 % (94-97); ABG PCO2 38 mmHg (35-45); ABG PH 7.25 (7.35-7.45); ABG PO2 83 mmHg (83-108); ABG TCO2 18 mmol/L (19-24); Allen Test Performed? Yes
[2020-03-04 05:57] LABS: Band Neutrophils % 69 %; Metamyelocytes # (M) 1.19 k/uL (0); Metamyelocytes % 3 %; Monocytes # (M) 0.79 k/uL (0-1.0); Myelocytes # (M) 1.19 k/uL (0); Myelocytes % 3 %; Neutrophils % (M) 24 %; Nucleated Red Blood Cells 0 /100 WBC (0-0); Total Cells Counted 200
[2020-03-04 05:58] LABS: Toxic Granulation Present
[2020-03-04] MEDS: IPRATROPIUM-ALBUTEROL 3 ML NEB INHALATION SCH ×4 (07:13→19:42)
--- NOTE | 2020-03-04 07:45 | XR ---
EXAMINATION TYPE: XR chest 1V DATE OF EXAM: 03/04/2020 COMPARISON: 03/03/2020 INDICATION: CHF TECHNIQUE: Single frontal view of the chest is obtained. FINDINGS: The heart size is normal. The pulmonary vasculature is prominent. There is diffuse increased lung markings bilaterally. Silhouetting the bilateral diaphragms is eviden t. Endotracheal tube tip is above the pita. Nasogastric tube transverses the thorax. Left central veno us catheter is present with the tip in the distal superior vena cava region. IMPRESSION: 1. Findings can be compatible with congestive heart failure. This is worsening from the comparison. 2. Multiple lines and catheters discussed above.
[2020-03-04] MEDS: LEVOTHYROXINE 100 MCG TAB PO SCH (08:31)
[2020-03-04] MEDS: IMIPRAMINE 10 MG TAB PO SCH ×3 (08:31→20:48)
[2020-03-04] MEDS: FLUoxetine HCL 20 MG CAP PO SCH (08:31)
[2020-03-04] MEDS: DEXTROSE 5% IN WATER 1,000 ML with SODIUM BICARB (1 MEQ/ML) 100 ML IV SCH ×2 (08:39→23:55)
[2020-03-04] MEDS ORDERED: POTASSIUM CHLORIDE 20 MEQ in WATER FOR INJECTION 1 100ML.BAG IVPB STA (09:34)
[2020-03-04] MEDS: CHLORHEXIDINE GLUCONATE 15 ML CUP MUCOUS MEM SCH ×2 (09:41→20:49)
[2020-03-04] MEDS: MEROPENEM 1 GM in SODIUM CHLORIDE 0.9% 100 ML IVPB SCH ×2 (09:41→22:18)
[2020-03-04] MEDS: PANTOPRAZOLE 40 MG/10 ML VIAL IVP SCH ×2 (09:41→20:49)
[2020-03-04 10:30] LABS: ABG Base Excess -9.7 mmol/L; ABG HCO3 17 mmol/L (21-25); ABG Oxygen Saturation 97.7 % (94-97); ABG PCO2 37 mmHg (35-45); ABG PH 7.28 (7.35-7.45); ABG PO2 94 mmHg (83-108); ABG TCO2 18 mmol/L (19-24); Allen Test Performed? Yes
--- NOTE | 2020-03-04 11:49 | PN ---
PROGRESS NOTE PULMONARY/CRITICAL CARE PROGRESS NOTE: DATE OF SERVICE: 03/04/2020 CRITICAL CARE TIME: 33 minutes. This is a patient who was admitted way back on February 25. She initially came in with pancreatitis, pneumonia, urinary tract infection. Five days later on 03/02, she was intubated because of aspiration. She apparently had a large volume aspiration according to the nurse. Anyway, the patient remains on mechanical ventilator. She is at volume assist-control mode rate of 20, tidal volume 450, FiO2 of 55%, PEEP of 8. Blood gases show a pO2 of 83, pCO2 of 38, and pH of 7.25. Subsequently, we went ahead and increased the rate to 26, dropped the tidal volume to 350. Repeat gases were done. She remains on propofol 40 mcg/kg per minute, norepinephrine at roughly 15 mcg/minutes and saline at 100 mL an hour. She may have a laparoscopic cholecystectomy today with Dr. Aggarwal. Anyway, the patient is reasonably stable, although she is on propofol. Her repeat blood gases on the changes showed a pO2 of 94, pCO2 of 37, and a pH of 7.28. Currently, the patient is resting comfortably, although she is sedated as mentioned. PHYSICAL EXAMINATION: VITAL SIGNS: Current vital signs are reviewed temperature is 97.6 heart rate 71, respiratory rate 26, blood pressure 116/51. CVP is 15. Saturations are 97%. Appears in no acute distress. Currently sedated. HEENT: Examination is grossly unremarkable. She has an orally placed endotracheal tube and NG tube. NECK: Supple, full range of motion. No adenopathy. Neck veins are flat. CARDIOVASCULAR: Examination reveals regular rhythm and rate. Heart rate 71. S1, S2 normal. Heart sounds are distant. LUNGS: Reveal some diffuse coarse rhonchi. Some crackles bilaterally. Breath sounds equal. ABDOMEN: Soft. Bowel sounds are not noted. EXTREMITIES: Intact. No cyanosis, clubbing, or edema. SKIN: Without rash. NEUROLOGIC: Examination is difficult to assess. LABS: Reviewed. White count 39.7, hemoglobin 10.8, hematocrit 32.6, platelet count 290,000, blood gases have been noted. Sodium 141, potassium 3.5, chloride 117, CO2 is 17, anion gap is 7. BUN and creatinine were 44 and 2.47. Albumin 1.8, total protein 3.8. Microbiology showing E coli in the urine. Chest x-ray shows diffuse bilateral infiltrates, more so on the left than on the right. MEDICATIONS: Reviewed. She is on Tylenol, chlorhexidine, bicarb drip with 2 amps of bicarb and D5W at 75 mL an hour, Prozac, Dilaudid, insulin, DuoNeb, levothyroxine, Merrem, Narcan, norepinephrine, nystatin, Protonix, potassium replacement, propofol. ASSESSMENT: 1. Acute hypoxemic respiratory failure, secondary to aspiration pneumonia, septic shock with gram-negative bacteremia, gallstone pancreatitis and possibly E coli urinary tract infection. 2. Abdominal sepsis on presentation. 3. History of closed head injury. 4. Acute kidney injury. 5. Escherichia coli urinary tract infection/urosepsis. 6. History of hypertension. PLAN: Currently, the patient had vent changes made. We actually increased her rate up from 20 to 26 and dropped her tidal volume to 350. Repeat blood gases were excellent. The patient remains on Levophed at 50 mcg/kg per minute. Vasopressin was actually ordered but never given. It was removed from the MAR. She may have a laparoscopic cholecystectomy today. Additional recommendations and suggestions are for forthcoming. ID is providing meropenem for antibiotic coverage. Additional recommendations and suggestions are forthcoming. Prognosis is guarded. CRITICAL CARE TIME: 33 minutes. MMODL / IJN: [id number] / KAYLEN
[2020-03-04 11:56] LABS: Glucose,Whole Blood 105 mg/dL (75-99)
[2020-03-04 12:41] LABS: Magnesium 1.8 mg/dL (1.6-2.3); Phosphorus 4.2 mg/dL (2.5-4.5)
[2020-03-04] MEDS: [UNRECOGNIZED DRUG - REMARK] IV SCH ×7 (14:17)
--- NOTE | 2020-03-04 15:47 | P.PN ---
Progress Note - Text Progress Note Date: 03/04/20 The patient had a large aspiration pneumonia. She was scheduled for laparoscopic cholecystectomy today. Her surgery was canceled. We will follow with you.
[2020-03-04 18:13] LABS: Glucose,Whole Blood 125 mg/dL (75-99)
--- NOTE | 2020-03-04 18:45 | PN ---
PROGRESS NOTE DATE OF SERVICE: 03/04/2020 REASON FOR FOLLOWUP: Sepsis from gallstone pancreatitis and cholecystitis. INTERVAL HISTORY: Patient is currently afebrile. The patient remains intubated on the vent. FiO2 is currently down to 55%. No purulent secretions in the ET or any diarrhea reported by the nursing staff. PHYSICAL EXAMINATION: Blood pressure is 102/47, pulse of 71, temperature 97.9. She is 96% on 55% FiO2. General description is an elderly female lying in bed in no distress. RESPIRATORY SYSTEM: Unlabored breathing with decreased breath sounds at the base. No wheeze. HEART: S1, S2. Regular rate and rhythm. ABDOMEN: Soft. Mildly distended. No guarding or rigidity. LABS: Hemoglobin is 10.8, white count 39.7. Creatinine is 2.47. Blood culture is so far negative. Sputum is pending. DIAGNOSTIC IMPRESSION AND PLAN: Patient with sepsis. Source is acute cholecystitis with gallstone pancreatitis with acute respiratory failure with worsening of the status and the white count. Antibiotic was adjusted to meropenem yesterday; to continue and follow up on repeat cultures and monitor clinical course closely. Prognosis remains guarded. MMODL / IJN: [id number] /
[2020-03-04] MEDS: HYDROmorphone 1 MG/ML 1 ML SYRINGE IVP PRN (20:50)
[2020-03-04] MEDS: NOREPINEPHRINE 32 MG in SODIUM CHLORIDE 0.9% 218 ML IV SCH (22:02)
[2020-03-05 00:25] LABS: Glucose,Whole Blood 39 mg/dL (75-99)
[2020-03-05 00:29] LABS: Glucose,Whole Blood 159 mg/dL (75-99)
[2020-03-05] MEDS: INSULIN ASPART (NovoLOG) 100 UNIT/ML VIAL SQ SCH ×4 (00:34→18:28)
[2020-03-05 05:29] LABS: ABG Base Excess -5.3 mmol/L; ABG HCO3 21 mmol/L (21-25); ABG Oxygen Saturation 98.2 % (94-97); ABG PCO2 39 mmHg (35-45); ABG PH 7.33 (7.35-7.45); ABG PO2 102 mmHg (83-108); ABG TCO2 22 mmol/L (19-24); Allen Test Performed? Yes
[2020-03-05 06:02] LABS: HCT 30.8 % (34.0-46.0); HGB 10.5 gm/dL (11.4-16.0); Hypochromasia Slight; MCH 34.6 pg (25.0-35.0); MCV 101.7 fL (80.0-100.0); Macrocytosis Slight; Platelet Count 313 k/uL (150-450); Poikilocytosis Slight; RBC 3.03 m/uL (3.80-5.40); RDW 15.1 % (11.5-15.5); WBC 39.8 k/uL (3.8-10.6)
[2020-03-05 06:06] LABS: Ionized Calcium 4.8 mg/dL (4.5-5.3)
[2020-03-05 06:18] LABS: Calcium 7.1 mg/dL (8.4-10.2); Phosphorus 3.4 mg/dL (2.5-4.5); Potassium 2.8 mmol/L (3.5-5.1)
[2020-03-05 06:44] LABS: Band Neutrophils % 22 %; Eosinophils # (M) 1.19 k/uL (0-0.7); Metamyelocytes % 2 %; Myelocytes % 1 %; Neutrophils % (M) 71 %; Nucleated Red Blood Cells 0 /100 WBC (0-0); Total Cells Counted 200
[2020-03-05 06:45] LABS: Large Platelets Present
[2020-03-05 06:46] LABS: Polychromasia Present
--- NOTE | 2020-03-05 06:50 | PN ---
PROGRESS NOTE PULMONARY/CRITICAL CARE PROGRESS NOTE: DATE OF SERVICE: March 05, 2020 CRITICAL CARE TIME: 33 minutes. This is a patient who was admitted back on February 25. She initially came in with pancreatitis, pneumonia and urinary tract infection. Five days later, on March 02 she was intubated because of a large volume aspiration. The patient currently is on the mechanical ventilator. She is dyssynchronous. Her current settings of volume assist- control rate of 26, tidal volume 350, FiO2 of 55%, PEEP of 8. Blood gases show pO2 of 102, pCO2 of 39, and pH is 7.33. Because of her dyssynchrony, we switched her over to pressure regulated volume control or VC plus modality with a targeted tidal volume of 350 and inspiratory time of 0.8 seconds. Anyway, the patient seems to be a bit better off on this modality than on the volume assist-control mode. Currently, she is receiving norepinephrine at 10 mcg/minute, Diprivan at 40 mcg/kg per minute, TPN at 30 mL an hour and getting a bicarb drip with 2 amps of sodium bicarb and D5W at 75 mL an hour. Currently, she remains relatively stable according to the nurses. The only change made this morning was changing her from volume assist-control to VC plus modality on the ventilator. PHYSICAL EXAMINATION: VITAL SIGNS: Current vital signs are reviewed. Temperature is 98, heart rate 69, respiratory rate 26, blood pressure 115/48. Central venous pressure is 12. Saturations are 99%. GENERAL: Appears in no acute distress. HEENT: Examination is grossly unremarkable. There is an orally placed endotracheal tube and NG tube. NECK: Supple. Full range of motion. CARDIOVASCULAR: Examination reveals regular rhythm and rate. Heart rate about 70 beats per minute. S1, S2 normal. Heart sounds are distant. LUNGS: Reveal diffuse coarse rhonchi. Breath sounds are diminished throughout. A few scattered crackles. No wheezes. ABDOMEN: Soft. No bowel sounds. EXTREMITIES: Are intact. No cyanosis, clubbing, or significant edema. SKIN: Without rash. NEUROLOGIC: Examination is difficult to assess given her current level of sedation. LABS: Labs are reviewed. White count 39.8, hemoglobin 10.5, hematocrit 30.8, platelet count 313,000. Her basic metabolic profile, comprehensive metabolic profile is not yet back. Blood gases show pO2 of 102, pCO2 of 39, and pH 7.33. Microbiology showing evidence of Escherichia coli in the urine. It is sensitive to everything. A chest x-ray shows diffuse bilateral infiltrates, more left-sided than right-sided today. Though appears to be bilateral pleural effusions. In my opinion, her chest x- ray may be is a bit better than it was yesterday. She has got a left subclavian triple- lumen catheter and her endotracheal tube in good position above the tracheal pita. MEDICATIONS: Medications are reviewed. Everything seems to be appropriate. ASSESSMENT: 1. Acute hypoxemic respiratory failure secondary to aspiration pneumonia, septic shock with gram-negative bacteremia, gallstone pancreatitis and Escherichia coli urinary tract infection. 2. Abdominal sepsis, on presentation. 3. Hypoxemic respiratory failure requiring intubation mechanical ventilation on March 02. 4. History of closed head injury. 5. Acute kidney injury. 6. Escherichia coli urinary tract infection/urosepsis. 7. History of benign essential hypertension. PLAN: Currently, the patient remains on multiple drips including norepinephrine at 10 mcg/minute, propofol at 40 mcg/kg per minute, TPN at 30 mL an hour and sodium bicarbonate drip with 2 amps of bicarb and D5W at 75 mL an hour. Her urine was positive for E coli. She was dyssynchronous with the ventilator, we switched her from volume assist-control to VC plus modality. We have a targeted tidal volume is 350, inspiratory time of 0.8 seconds. That seems to suit her at this time. Labs, x-rays and medications are all reviewed. Prognosis is guarded. She is a DNR. Additional recommendations and suggestions are forthcoming. CRITICAL CARE TIME: 33 minutes. MMTAMIL / IJN: [id number] /
[2020-03-05] MEDS: POTASSIUM CHLORIDE 20 MEQ in WATER FOR INJECTION 1 100ML.BAG IVPB SCH ×5 (06:51→18:53)
--- NOTE | 2020-03-05 07:02 | XR ---
EXAMINATION TYPE: XR chest 1V portable DATE OF EXAM: 03/05/2020 COMPARISON: 03/04/2020 HISTORY: SOB, Follow Up FINDINGS: Indwelling tubes and catheters are unchanged. No change in diffuse bilateral infiltrates greatest at the lung bases. Stable appearance of the cardio-mediastinal structures at this time. Pleural effusion unchanged. IMPRESSION: 1. No change in diffuse bilateral infiltrates greatest at the lung bases.Clinical correlation and fo llow up until resolution is recommended.
[2020-03-05] MEDS: IPRATROPIUM-ALBUTEROL 3 ML NEB INHALATION SCH ×4 (07:32→18:38)
[2020-03-05] MEDS: LEVOTHYROXINE 100 MCG TAB PO SCH ×2 (08:58→09:33)
[2020-03-05] MEDS: PANTOPRAZOLE 40 MG/10 ML VIAL IVP SCH ×3 (08:59→20:26)
[2020-03-05] MEDS: FLUoxetine HCL 20 MG CAP PO SCH ×2 (08:59→09:32)
[2020-03-05] MEDS: IMIPRAMINE 10 MG TAB PO SCH ×4 (09:00→20:25)
[2020-03-05] MEDS: MEROPENEM 1 GM in SODIUM CHLORIDE 0.9% 100 ML IVPB SCH ×2 (09:14→20:26)
[2020-03-05] MEDS: CHLORHEXIDINE GLUCONATE 15 ML CUP MUCOUS MEM SCH ×2 (09:14→20:25)
[2020-03-05 11:51] LABS: Glucose,Whole Blood 121 mg/dL (75-99)
[2020-03-05] MEDS ORDERED: ANIDULAFUNGIN 200 MG in SODIUM CHLORIDE 0.9% 200 ML IVPB ONE (12:45)
[2020-03-05] MEDS: HYDROmorphone 1 MG/ML 1 ML SYRINGE IVP PRN (13:37)
[2020-03-05] MEDS: DEXTROSE 5% IN WATER 1,000 ML with SODIUM BICARB (1 MEQ/ML) 100 ML IV SCH (15:00)
--- NOTE | 2020-03-05 15:18 | PN ---
PROGRESS NOTE DATE OF SERVICE: 03/05/2020 REASON FOR FOLLOWUP: Abdominal abscess. INTERVAL HISTORY: Patient is currently afebrile. The patient's FiO2 is currently 65%, pressor requirement has been decreased. The patient remains to be intubated on the vent. No diarrhea or any change reported by nursing staff. PHYSICAL EXAMINATION: Blood pressure 115/53 with a pulse of 75, temperature is 97.7. She is 98% on 55% FiO2. General description is an elderly female, lying in bed in no distress. RESPIRATORY SYSTEM: Unlabored breathing, decreased breath sounds in the base, with no wheeze. HEART: S1, S2. Regular rate and rhythm. ABDOMEN: Soft, no distention or rigidity. LABS: Hemoglobin 10.5, white count 9.2, BUN of 38, creatinine is 2.15. DIAGNOSTIC IMPRESSION AND PLAN: Patient with abdominal sepsis from a cholecystitis with gallstone pancreatitis with worsening white count despite being on meropenem. We will add Eraxis to cover for the yeast and monitor clinical course closely. Overall prognosis remains to be guarded. MMODL / IJN: [id number] /
[2020-03-05] MEDS ORDERED: MAGNESIUM CITRATE 296 ML BOTTLE PO ONE (17:00)
[2020-03-05] MEDS: [UNRECOGNIZED DRUG - REMARK] IV SCH ×7 (17:18)
--- NOTE | 2020-03-05 17:50 | PN ---
PROGRESS NOTE DATE OF SERVICE: 03/05/2020 CHIEF COMPLAINT: Aspiration pneumonia, pancreatitis, old head injury. HISTORY OF PRESENT ILLNESS: This lady remains on the ventilator. Her vital signs vital signs are stable. PHYSICAL EXAMINATION: Hydration is good. Color is good. Chest is clear bilaterally. Cardiac exam is normal. Abdomen seems soft and there are no definite masses. IMPRESSION: 1. Aspiration pneumonia and respiratory failure. 2. History of pancreatitis. 3. Cholelithiasis. 4. Old head injury with left hemiparesis. PLAN: Continue to follow with Intensive Medicine and General Surgery until she is able to be released from the unit. MMODL / IJN: [id number] /
--- NOTE | 2020-03-05 18:16 | PN ---
PROGRESS NOTE DATE OF SERVICE: 03/04/2020 CHIEF COMPLAINT: Aspiration and respiratory failure. HISTORY OF PRESENT ILLNESS: This lady remains on the ventilator and seems to be fairly stable. She does not seem to be having significant abdominal pain on exam. PHYSICAL EXAMINATION: Color is good. Vital signs are normal with a good blood pressure and pulse. Chest demonstrates clear breath sounds on both sides and the cardiac exam is normal. Abdomen is soft and there are no definite masses. IMPRESSION: 1. Aspiration pneumonia. 2. Respiratory failure. 3. Pancreatitis. 4. Cholelithiasis and probable cholecystitis. 5. Traumatic encephalopathy with left hemiparesis. PLAN: She will be continued in the ICU with supportive care until she is stable enough to be taken off the ventilator. MMODL / IJN: [id number] /
[2020-03-05 18:29] LABS: Glucose,Whole Blood 91 mg/dL (75-99)
[2020-03-05] MEDS: NOREPINEPHRINE 32 MG in SODIUM CHLORIDE 0.9% 218 ML IV SCH (18:47)
[2020-03-05 23:48] LABS: Glucose,Whole Blood 117 mg/dL (75-99)
[2020-03-05] MEDS: POTASSIUM CHLORIDE 10 MEQ in WATER FOR INJECTION 1 100ML.BAG IVPB SCH (23:51)
[2020-03-06] MEDS: INSULIN ASPART (NovoLOG) 100 UNIT/ML VIAL SQ SCH ×4 (00:06→18:24)
[2020-03-06] MEDS: POTASSIUM CHLORIDE 10 MEQ in WATER FOR INJECTION 1 100ML.BAG IVPB SCH ×3 (00:59→09:28)
[2020-03-06 05:02] LABS: ABG Base Excess -1.9 mmol/L; ABG HCO3 23 mmol/L (21-25); ABG Oxygen Saturation 97.9 % (94-97); ABG PCO2 39 mmHg (35-45); ABG PH 7.39 (7.35-7.45); ABG PO2 96 mmHg (83-108); ABG TCO2 24 mmol/L (19-24)
[2020-03-06 05:03] LABS: Calcium 7.2 mg/dL (8.4-10.2); Magnesium 1.8 mg/dL (1.6-2.3); Potassium 3.8 mmol/L (3.5-5.1)
[2020-03-06 05:04] LABS: Allen Test Performed? no
[2020-03-06 05:13] LABS: HCT 29.9 % (34.0-46.0); Hypochromasia Slight; MCH 33.5 pg (25.0-35.0); MCHC 33.4 g/dL (31.0-37.0); MCV 100.3 fL (80.0-100.0); Macrocytosis Slight; Mean Platelet Volume 9.2; Platelet Count 296 k/uL (150-450); Poikilocytosis Slight; RBC 2.98 m/uL (3.80-5.40); RDW 15.2 % (11.5-15.5); WBC 40.1 k/uL (3.8-10.6)
[2020-03-06 05:45] LABS: Anisocytosis (M) Present; Band Neutrophils % 2 %; Neutrophils % (M) 90 %; Nucleated Red Blood Cells 0 /100 WBC (0-0); Polychromasia Present; Total Cells Counted 100
[2020-03-06 06:02] LABS: Glucose,Whole Blood 99 mg/dL (75-99)
[2020-03-06] MEDS: DEXTROSE 5% IN WATER 1,000 ML with SODIUM BICARB (1 MEQ/ML) 100 ML IV SCH (06:46)
[2020-03-06] MEDS: IPRATROPIUM-ALBUTEROL 3 ML NEB INHALATION SCH ×4 (07:26→19:26)
[2020-03-06] MEDS: PANTOPRAZOLE 40 MG/10 ML VIAL IVP SCH ×2 (08:17→21:45)
[2020-03-06] MEDS: ANIDULAFUNGIN 100 MG in SODIUM CHLORIDE 0.9% 100 ML IVPB SCH (08:17)
[2020-03-06] MEDS: FLUoxetine HCL 20 MG CAP PO SCH (08:20)
[2020-03-06] MEDS: LEVOTHYROXINE 100 MCG TAB PO SCH (08:20)
[2020-03-06] MEDS: IMIPRAMINE 10 MG TAB PO SCH ×3 (08:20→20:36)
[2020-03-06] MEDS: CHLORHEXIDINE GLUCONATE 15 ML CUP MUCOUS MEM SCH ×2 (08:20→22:01)
[2020-03-06] MEDS: MEROPENEM 1 GM in SODIUM CHLORIDE 0.9% 100 ML IVPB SCH (08:23)
[2020-03-06] MEDS: MAGNESIUM SULFATE-D5W PMX 1 GM in DEXTROSE/WATER 1 100ML.BAG IVPB SCH ×2 (09:27→10:36)
[2020-03-06] MEDS: NOREPINEPHRINE 32 MG in SODIUM CHLORIDE 0.9% 218 ML IV SCH (09:28)
--- NOTE | 2020-03-06 10:22 | XR ---
EXAMINATION TYPE: XR chest 1V portable DATE OF EXAM: 03/06/2020 COMPARISON: Prior chest x-ray 03/05/2020 HISTORY: Intubated TECHNIQUE: Single frontal view of the chest is obtained. FINDINGS: Findings are similar to prior exam. Endotracheal tube, orogastric tube, left subclavian ce ntral venous catheter, bilateral airspace disease and heart show a stable appearance. No evident pneu mothorax. Surgical clips present over the left lower chest. IMPRESSION: Correlate for pneumonia, edema, ARDS.
--- NOTE | 2020-03-06 11:08 | PN ---
PROGRESS NOTE PULMONARY/CRITICAL CARE PROGRESS NOTE: DATE OF SERVICE: 03/06/2020 CRITICAL CARE TIME: 34 minutes. This is a 64-year-old female who was admitted back on March 05. She initially came in with pancreatitis, pneumonia, and urinary tract infection. Five days later on 03/02, she was intubated because of large volume aspiration. The patient is currently on the mechanical ventilator. She was somewhat dyssynchronous on the volume assist-control mode AND switched to pressure regulated volume control or VC plus. Currently, her targeted tidal volume is 350 with inspiratory time of 0.8 seconds. Her respiratory rate is 26, FiO2 is 55%, PEEP is 8. Blood gases show a pO2 of 96, pCO2 of 39, and pH of 7.39. The patient is currently getting TPN at 30 mL an hour, Diprivan at 50 mcg/kg per minute and norepinephrine at 70 mcg/minute and D5W with 2 amps of bicarb at 75 mL an hour. She was found to have E coli in the urine. She is on meropenem and Eraxis, which is an antifungal. As I mentioned, she is a DNR and was intubated on 03/02. Today we are going to start some enteral nutrition on her. We are going to discontinue the sodium bicarbonate drip. We are also going to talk to the family and I did talk to the sister about plans of moving forward. The sister indicated that probably the family member would all agreed to make the patient comfort measures sometime the next day or 2. She would not apparently agree to a tracheostomy or PEG tube. The patient is a DNR. Probably, the patient would not even agree to initially to be intubated. Anyway, will allow them to discuss it and make a plan. The bicarbonate drip by the way will be discontinued today. The bicarbonate concentration on the electrolyte profile of 24, which is normal. Current vital signs are reviewed. Temperature is 99.1, heart rate 80, respiratory rate 16, blood pressure 127/59, CVP is 10, and saturations are 99% on FiO2 of 55%, PEEP of 8. HEENT: Examination is grossly unremarkable. There is an orally placed endotracheal tube and NG tube. NECK: Supple, full range of motion. No adenopathy. Neck veins are flat. CARDIOVASCULAR: Examination reveals regular rhythm and rate. Heart rate 80. S1, S2 normal. Heart sounds are distant. LUNGS: Reveal coarse bilateral rhonchi. Breath sounds equal. No wheezes. There are some bibasilar crackles. ABDOMEN: Soft, bowel sounds are not noted. No masses. EXTREMITIES: Intact. There is diffuse upper and lower extremity edema. No cyanosis or clubbing. SKIN: Without rash. NEUROLOGIC: Examination is difficult to assess given her current level of sedation. CURRENT LABS: Reviewed. White count up to 40.1, hemoglobin 10, hematocrit 29.9, platelet count 296,000. Blood gases show a pO2 of 96, pCO2 39, and a pH of 7.39. Sodium 138, potassium 3.8, chloride 111, CO2 is 24, anion gap is 3. BUN and creatinine were 32 and 1.57. The rest of the labs look okay. Microbiology showing Chastity albicans in the sputum from March 04 and E coli in the urine from February 25. Her most recent chest x-ray shows diffuse bilateral infiltrates. This is presumably from her large volume aspiration, on the day of admission. CURRENT MEDICATIONS: Reviewed. She is currently on Tylenol, TPN, Eraxis, chlorhexidine, bicarbonate drip which is going to be discontinued, Prozac, Dilaudid, Tofranil, insulin DuoNeb, levothyroxine, meropenem, Narcan, norepinephrine, nystatin, Protonix, potassium replacement, and propofol. ASSESSMENT: 1. Acute hypoxemic respiratory failure secondary to aspiration pneumonia, septic shock, with gram-negative bacteremia, gallstone pancreatitis, and E coli urinary tract infection. 2. Abdominal sepsis, as above. 3. Hypoxemic respiratory failure requiring intubation and mechanical ventilation on March 02 with failure to wean from mechanical ventilation at this point. 4. History of closed head injury. 5. Acute kidney injury. 6. Escherichia coli UTI/urosepsis. 7. History of benign essential hypertension. PLAN: The patient's overall status is not really improved. She remains on multiple drips including TPN at 30 mL an hour, Diprivan at 50 mcg/kg per minute, norepinephrine 17 mcg/minute and the sodium bicarbonate drip is 75 mL an hour. Because of ventilator dyssynchrony, she was switched to the pressure regulated volume control modality or VC plus. She is a DNR. She was intubated on March 02. She now is on meropenem and Eraxis. We are going to start some tube feeds on her. Will DC the bicarbonate drip. We did talk to the sister today about what to do going forward. The sister indicated that probably the family would agree to comfort measures. Additional recommendations and suggestions are forthcoming. CRITICAL CARE TIME: 34 minutes. MARLEY / SHANTAL: [id number] /
[2020-03-06 12:31] LABS: Glucose,Whole Blood 113 mg/dL (75-99)
[2020-03-06] MEDS ORDERED: MAGNESIUM CITRATE 296 ML BOTTLE PO ONE (13:51)
[2020-03-06] MEDS: IOPAMIDOL CONTRAST (ORAL USE) VIAL PO PRN ×2 (15:30→16:20)
--- NOTE | 2020-03-06 16:04 | PN ---
PROGRESS NOTE DATE OF SERVICE: 03/06/2020 REASON FOR FOLLOWUP: Sepsis abdominal source INTERVAL HISTORY: Patient is currently afebrile. The patient is still requiring pressor support. However, though dose is slightly cut down. According to the nursing staff the patient remains to be intubated on the vent. FiO2 is currently 55%. No significant purulent secretion through the ET or any diarrhea has been reported although the patient has no bowel movement the last few days. No other changes reported by the nursing staff. Patient remains to be sedated on the vent, unable to provide any history. PHYSICAL EXAMINATION: Blood pressure 111/52 with a pulse of 74, temperature 98.8, she is 100% on 55% FiO2. General description is a middle-aged female, lying in bed in no distress. HEENT: Examination pallor. The patient is orally intubated. LUNGS: Unlabored breathing, decreased breath sounds at the bases. No wheeze. HEART: S1, S2. Regular rate and rhythm. ABDOMEN: Soft, no guarding, rigidity, no organomegaly. EXTREMITIES: Trace edema of feet. LABS: Hemoglobin is 10, white count of 14,000, BUN of 32, creatinine is 1.57. DIAGNOSTIC IMPRESSION AND PLAN: Patient with sepsis, source is likely abdominal in this patient who did have gallstone pancreatitis, severe with subsequent ARDS and acute respiratory failure, currently on the vent. The patient did have persistently elevated white count despite being on a broader antibiotic coverage, off meropenem. Dose was adjusted to her kidney function as well as any followup that was added yesterday and the cultures have been negative so far. I have a daily discussion with the patient's sister who is the power of patent attorney and had a question regarding her prognosis. We will go ahead and order a CT of abdomen and pelvis to rule out any infected pancreatic pseudocyst and to make sure there is no evidence of any gangrenous cholecystitis that may need surgery. We will adjust dose of meropenem up to 2 g q.12 after discussion with the pharmacy. Continue with Eraxis. Overall prognosis remains to be guarded. Significant amount of time was spent with the daughter on the phone and explained her condition. MMODL / IJN: [id number] /
--- NOTE | 2020-03-06 17:17 | PN ---
PROGRESS NOTE DATE OF SERVICE: 03/06/2020 CHIEF COMPLAINT: Aspiration pneumonia and adult respiratory distress syndrome. HISTORY OF PRESENT ILLNESS: This lady remains on the ventilator. Laboratory studies are concerning. REVIEW OF SYSTEMS: Unobtainable. PHYSICAL EXAMINATION: Blood pressure is 115/79 with a pulse of 73 and she remains on the ventilator with control. Head, ears, eyes, and nose are normal and the chest is clear on the ventilator. The cardiac exam is normal and the abdomen is soft and seems nontender without masses. IMPRESSION: 1. Aspiration pneumonia. 2. ARDS. 3. Sepsis. 4. Previous head injury. PLAN: Continue with ventilator support. Prognosis is poor. Laboratory studies white count is up to 40,000, her hemoglobin is 10. GFR is 39 with a BUN of 38, creatinine 2.51. Potassium is up from 2.8 to 3.3. MMODL / IJN: [id number] /
--- NOTE | 2020-03-06 17:51 | CT ---
EXAMINATION TYPE: CT abdomen pelvis wo con DATE OF EXAM: 03/06/2020 COMPARISON: Previous exam 02/26/2020 HISTORY: Pancreatic pseudocyst/abscess, cholecystitis. CT DLP: 1500.4 mGycm Automated exposure control for dose reduction was used. TECHNIQUE: Helical acquisition of images from the lung bases through the pelvis. Patient received or al contrast only FINDINGS: Lack of intravenous contrast could compromise sensitivity of the exam, detection of abscess . NG tube is present with the distal tip in the stomach, there is contrast filled stomach. LUNG BASES: There are bilateral pleural effusions and associated compressive atelectatic changes whic h have developed in the interval, air bronchograms are present, correlate to exclude pneumonia. Some groundglass opacities are present bilaterally, there is anasarca changes within the soft tissues AORTA: No significant abnormality is appreciataed. LIVER/GB: Cholelithiasis is present. No evident liver mass.. PANCREAS: The pancreas is poorly defined and shows abnormal low attenuation especially in the head an d body level as on prior exam, there is peripancreatic inflammatory change which may progressed in th e interval. SPLEEN: No significant abnormality is seen. ADRENALS: No significant abnormality is seen. KIDNEYS: No significant abnormality is seen. REPRODUCTIVE ORGANS: No significant abnormality is seen. URINARY BLADDER: No significant abnormality is seen. BOWEL: There are distended small bowel bowel loops more proximally and gradually taper distally, pro bable residual contrast material present within the colon from a previous exam. There is a mixed appe arance of the proximal small bowel contrast extending from the stomach, peripherally the contrast mat erial is more dense than centrally, indeterminate finding. Colonic wall thickening could be indicativ e of colitis or possibly lack of distention, there is extensive diverticular change present. Postop c hanges are noted the right colon. FREE AIR: No Free Air is visible. ASCITES: There is some free fluid present within the pelvis, minimal along the paracolic gutters. PELVIC ADENOPATHY: None visualized. RETROPERITONEAL ADENOPATHY: No Retroperitoneal Adenopathy visible. OSSEOUS STRUCTURES: No significant abnormality is seen. IMPRESSION: FINDINGS CONSISTENT WITH PANCREATITIS WITH POSSIBLE PROGRESSION, CANNOT EXCLUDE PANCREATIC NECROSIS. THERE MAY BE ILEUS RATHER THAN BOWEL OBSTRUCTION, INDETERMINATE MIXING MAY BE PRESENT WITHIN THE PROX IMAL SMALL BOWEL. NONCONTRAST EXAM. CHOLELITHIASIS. NEW BILATERAL PLEURAL EFFUSIONS. ADDITIONAL FINDI NGS ABOVE.
[2020-03-06 18:22] LABS: Glucose,Whole Blood 107 mg/dL (75-99)
[2020-03-06] MEDS: MEROPENEM 2 GM in SODIUM CHLORIDE 0.9% 100 ML IVPB SCH (20:45)
[2020-03-07 00:33] LABS: Glucose,Whole Blood 86 mg/dL (75-99)
[2020-03-07] MEDS: INSULIN ASPART (NovoLOG) 100 UNIT/ML VIAL SQ SCH ×4 (00:49→18:52)
[2020-03-07] MEDS: SODIUM ACETATE IV SCH ×16 (01:40→17:40)
[2020-03-07] MEDS: [UNRECOGNIZED DRUG - OTHER] IV SCH ×16 (01:40→17:40)
[2020-03-07] MEDS: POTASSIUM ACETATE IV SCH ×16 (01:40→17:40)
[2020-03-07] MEDS: CALCIUM GLUCONATE IV SCH ×16 (01:40→17:40)
[2020-03-07 04:42] LABS: Basophils # (A) 0.4 k/uL (0-0.2); Basophils % (A) 1 %; Eosinophils # (A) 0.2 k/uL (0-0.7); Eosinophils % (A) 1 %; HCT 30.1 % (34.0-46.0); HGB 9.7 gm/dL (11.4-16.0); Hypochromasia Slight; Lymphocytes # (A) 0.5 k/uL (1.0-4.8); Lymphocytes % (A) 1 %; MCH 32.7 pg (25.0-35.0); MCHC 32.3 g/dL (31.0-37.0); MCV 101.3 fL (80.0-100.0); Macrocytosis Slight; Mean Platelet Volume 9.1; Monocytes # (A) 0.7 k/uL (0-1.0); Monocytes % (A) 2 %; Neutrophils # (A) 33.2 k/uL (1.3-7.7); Neutrophils % (A) 95 %; Platelet Count 292 k/uL (150-450); Poikilocytosis Slight; RBC 2.98 m/uL (3.80-5.40); WBC 35.1 k/uL (3.8-10.6)
[2020-03-07 04:55] LABS: Calcium 7.4 mg/dL (8.4-10.2); Magnesium 2.3 mg/dL (1.6-2.3); Phosphorus 3.9 mg/dL (2.5-4.5); Potassium 3.9 mmol/L (3.5-5.1)
[2020-03-07 05:40] LABS: ABG Base Excess -1.2 mmol/L; ABG HCO3 24 mmol/L (21-25); ABG PCO2 41 mmHg (35-45); ABG PH 7.37 (7.35-7.45); ABG PO2 69 mmHg (83-108); Allen Test Performed? no
[2020-03-07] MEDS: POTASSIUM CHLORIDE 10 MEQ in WATER FOR INJECTION 1 100ML.BAG IVPB SCH ×2 (06:56→08:49)
--- NOTE | 2020-03-07 07:13 | XR ---
EXAMINATION TYPE: XR chest 1V portable DATE OF EXAM: 03/07/2020 COMPARISON: Prior chest x-ray dated 03/06/2020 HISTORY: Intubated TECHNIQUE: Single frontal view of the chest is obtained. FINDINGS: Endotracheal tube and NG tube, left subclavian central venous catheter are overlying appro priate positions. There may be some improvement in aeration as compared to prior exam, interval impro roger visualization of the right hemidiaphragm. There is no evident pneumothorax, patient remains rotat ed. Surgical clips are present in the left breast, there are overlying leads and artifacts. IMPRESSION: Improved aeration.
[2020-03-07] MEDS: IPRATROPIUM-ALBUTEROL 3 ML NEB INHALATION SCH ×4 (08:16→19:03)
[2020-03-07] MEDS: PANTOPRAZOLE 40 MG/10 ML VIAL IVP SCH ×2 (08:49→20:06)
[2020-03-07] MEDS: MEROPENEM 2 GM in SODIUM CHLORIDE 0.9% 100 ML IVPB SCH ×2 (08:49→19:51)
[2020-03-07] MEDS: IMIPRAMINE 10 MG TAB PO SCH ×3 (08:49→23:37)
[2020-03-07] MEDS: CHLORHEXIDINE GLUCONATE 15 ML CUP MUCOUS MEM SCH ×2 (08:49→20:10)
[2020-03-07] MEDS: LEVOTHYROXINE 100 MCG TAB PO SCH (08:49)
[2020-03-07] MEDS: ANIDULAFUNGIN 100 MG in SODIUM CHLORIDE 0.9% 100 ML IVPB SCH (08:50)
[2020-03-07] MEDS: FLUoxetine HCL 20 MG CAP PO SCH (08:52)
[2020-03-07 11:54] LABS: Glucose,Whole Blood 102 mg/dL (75-99)
--- NOTE | 2020-03-07 12:12 | PN ---
PROGRESS NOTE PULMONARY/CRITICAL CARE PROGRESS NOTE: DATE OF SERVICE: 03/07/2020 CRITICAL CARE TIME: 34 minutes. This is a 64-year-old female who was admitted back on March 05. She initially came in with pancreatitis, pneumonia, and urinary tract infection. Five days later on March 02, she was intubated because of large volume aspiration. The patient is currently on mechanical ventilator. She was initially on the volume assist-control mode. Currently, she is on volume but she is currently on the VC plus modality for pressure regulated volume control ventilation. Anyway, she remains on the ventilator. I did have a talk with her sister yesterday. Anyway, she is on the VC plus. Her targeted tidal volume is 315. Her inspiratory timer TI is 0.8 seconds. Respiratory rate 26, FiO2 of 55%, PEEP of 8. Blood gases show a pO2 of 69, pCO2 of 41, pH of 7.37. She remains on norepinephrine at 2 mcg/minute, Diprivan at 50 mcg/kg per minute, TPN at 30 mL an hour, 0.9 at 20 mL an hour. There are no tube feeds at this time. Currently, she is not a surgical candidate according to Dr. Aggarwal who I spoke to on the phone this morning. In terms of antibiotics, she is on Eraxis and meropenem. I did speak to the sister yesterday. I believe her name was Yue. Yue stated that the patient would not want long-term mechanical ventilation with tracheostomy and PEG tube placement. GI was consulted. Current vital signs are reviewed, temperature is 98.4, heart rate is 79, respiratory rate 26, blood pressure is 117/47, and saturations are 97%. Appears in no acute distress. HEENT: Examination is grossly unremarkable. There is an orally placed endotracheal tube and NG tube. NECK: Supple. Full range of motion. No adenopathy. Neck veins are flat. CARDIOVASCULAR: Examination reveals regular rhythm and rate. S1, S2 normal. Heart rate about 85 beats per minute. S1, S2 normal. Heart sounds are distant. LUNGS: Reveal diffuse bilateral rhonchi. Breath sounds equal. No crackles or wheezes. ABDOMEN: Soft, bowel sounds are heard. EXTREMITIES: Intact. There is diffuse upper and lower extremity edema. No cyanosis or clubbing. SKIN: Without rash. NEUROLOGIC: Examination is difficult to assess given the fact she is sedated on Diprivan at 50 mcg/kg per minute. . CURRENT LABORATORY DATA: Includes a white count 35.1, hemoglobin 9.7, hematocrit 30.1, platelet count 292,000. Blood gases show a pO2 of 69, pCO2 of 41 and pH of 7.37. Sodium 134, potassium 3.9, chloride 109, CO2 is 24, anion gap is 1. BUN and creatinine were 29 and 1.29. Microbiology showing E coli in the urine from February 25 and Chastity albicans in the sputum from March 04. The patient had a chest x-ray today which showed some slight improvement in aeration in both lung peña. A CT of the abdomen and pelvis shows findings that are consistent with pancreatitis with possible progression and cannot exclude pancreatic necrosis. There may be an ileus present. Other findings as noted on the report. CURRENT MEDICATIONS: Reviewed. She is on Tylenol, TPN, Eraxis, chlorhexidine, Prozac, Dilaudid, Tofranil, insulin, albuterol and Atrovent updrafts, levothyroxine, magnesium replacement, meropenem, Narcan, norepinephrine, nystatin, Protonix, potassium replacement, propofol. ASSESSMENT: 1. Acute hypoxemic respiratory failure secondary to aspiration pneumonia, septic shock with gram-negative bacteremia, gallstone pancreatitis and E coli urinary tract infection, requiring intubation and mechanical ventilation on March 02, with subsequent failure to wean. 2. Abdominal sepsis. 3. Hypoxemic respiratory failure with intubation/mechanical ventilation on March 02. 4. History of closed head injury. 5. Acute kidney injury. 6. Escherichia coli urinary tract infection/urosepsis. 7. Benign essential hypertension. PLAN: Currently, the patient is not a surgical candidate according to the surgeon. I discussed that with him today. The patient currently still is on norepinephrine at 2 mcg/kg per minute. The patient remains on propofol at 50 mcg/kg per minute and TPN at 30 mL an hour. Tube feeds are currently not being tolerated by the patient. The patient is currently on the pressure regulated volume control modality or VC plus. The patient continues to do poorly in my opinion. Additional recommendations and suggestions are forthcoming. The patient will be seen by Gastroenterology today. We await their recommendations. I did have a long discussion with Yue, the sister yesterday. MMODL / IJN: [id number] /
--- NOTE | 2020-03-07 15:12 | PN ---
PROGRESS NOTE DATE OF SERVICE: 03/07/2020 REASON FOR FOLLOWUP: Sepsis secondary to severe pancreatitis. INTERVAL HISTORY: Patient is currently afebrile. The patient is hemodynamically more stable and is requiring less pressor support to support her blood pressure. The patient's FiO2 remains to be stable at 55%. No significant purulent secretion in the ET or any diarrhea has been reported by nursing staff. PHYSICAL EXAMINATION: Blood pressure 108/57, pulse of 79, temperature 98.4, she is 97% on 55% FiO2. General description is an elderly female, intubated on the vent. RESPIRATORY SYSTEM: Unlabored breathing, decreased breath sounds at bases, no wheeze. HEART: S1, S2. Regular rate and rhythm. ABDOMEN: Soft, no tenderness. LABS: Hemoglobin 9.5, white count 35.1 with a BUN of 29, creatinine 1.29. A CT abdominal and pelvis has been reviewed with radiologist with severe pancreatitis. No evidence of any pseudocyst and no evidence of any inflammation around the gallbladder. DIAGNOSTIC IMPRESSION AND PLAN: Patient with sepsis, source is severe pancreatitis, possible gallstone related in this patient who did have acute respiratory failure, could be more likely ARDS from severe pancreatitis. The patient's sputum has been Chastity albicans. Blood culture has been negative. Continue with meropenem and Eraxis and monitor clinical course closely. Sister did request a call. She was called and updated about the patient. Questions were answered in layman's terms. MMODL / IJN: [id number] /
--- NOTE | 2020-03-07 16:15 | PN ---
PROGRESS NOTE DATE OF SERVICE: 03/07/2020 CHIEF COMPLAINT: Urinary tract infection with sepsis, aspiration pneumonia and ARDS. HISTORY OF PRESENT ILLNESS: This lady continues on ventilator support. She continues to perform poorly. White count is down slightly to the side of 30,000. It is likely that she has an intraabdominal process either relating to the pancreas and/or the gallbladder which is creating her sepsis. The outlook is poor. PHYSICAL EXAMINATION: Vital signs are normal on the ventilator. Her chest is fairly clear on both sides and cardiac exam is normal. The abdomen seems soft. Extremities are normal. IMPRESSION: 1. Septicemia. 2. Aspiration pneumonia. 3. ARDS. 4. Pancreatitis. 5. Cholelithiasis. 6. Probable cholecystitis. PLAN: Continue to follow with Surgery and Intensive Medicine. Family is in discussion with the physician as to how much further resuscitative measures are appropriate given her extremely poor outlook. MMODL / IJN: [id number] /
--- NOTE | 2020-03-07 17:23 | P.PN ---
Progress Note - Text Progress Note Date: 03/06/20 The patient remains on the ventilator. Her white count was increased to 40,000. On exam systolic blood pressures in the 110 range pulse is 74, temperature is 98.8. She is on the ventilator on 55% FiO2 satting 100%. Abdomen is soft distended there is no rebound or guarding. Sepsis most likely from aspiration pneumonia. Patient has history of chronic pancreatic disease. The patient did receive supportive care. She is not stable for cholecystectomy this time.
--- NOTE | 2020-03-07 17:26 | P.PN ---
Progress Note - Text Progress Note Date: 03/07/20 The patient remains in the ICU on the ventilator. Her white count is decreased slightly to 35,000. Patient to CAT scan performed yesterday. There is findings consistent with pancreatitis with progression. Patient appears to have an ileus on CAT scan. On exam her blood pressure is in the 110 range. Pulse is 79 temperature is 98.4. Patient is intubated on the ventilator. Abdomen soft with distention. There is no rebound or guarding. Patient has sepsis related to aspiration pneumonia and pancreatitis. I discussed the patient's sister yesterday that she is not a surgical candidate at this time. Once her condition improves we can consider laparoscopic cholecystectomy. The patient may be made comfort care I am unsure if this this time. Patient will continue receive supportive care.
[2020-03-07 17:43] LABS: Glucose,Whole Blood 106 mg/dL (75-99)
[2020-03-08 00:01] LABS: Glucose,Whole Blood 91 mg/dL (75-99)
[2020-03-08] MEDS ORDERED: SODIUM ACETATE IV SCH ×8 (01:30)
[2020-03-08] MEDS ORDERED: POTASSIUM ACETATE IV SCH ×8 (01:30)
[2020-03-08] MEDS ORDERED: CALCIUM GLUCONATE IV SCH ×8 (01:30)
[2020-03-08] MEDS ORDERED: [UNRECOGNIZED DRUG - OTHER] IV SCH ×8 (01:30)
[2020-03-08 04:35] LABS: Albumin 1.9 g/dL (3.5-5.0); Bilirubin, Delta 0.3 mg/dL (0.0-0.2); Calcium 7.7 mg/dL (8.4-10.2); Potassium 4.1 mmol/L (3.5-5.1); Total Bilirubin 0.3 mg/dL (0.2-1.3); Total Protein 4.2 g/dL (6.3-8.2)
[2020-03-08 04:40] LABS: Basophils # (A) 0.3 k/uL (0-0.2); Basophils % (A) 1 %; Eosinophils # (A) 0.3 k/uL (0-0.7); Eosinophils % (A) 1 %; HCT 31.3 % (34.0-46.0); HGB 9.8 gm/dL (11.4-16.0); Hypochromasia Slight; Lymphocytes # (A) 0.6 k/uL (1.0-4.8); Lymphocytes % (A) 2 %; MCHC 31.3 g/dL (31.0-37.0); MCV 102.4 fL (80.0-100.0); Macrocytosis Slight; Mean Platelet Volume 8.7; Monocytes # (A) 0.8 k/uL (0-1.0); Monocytes % (A) 3 %; Neutrophils # (A) 26.9 k/uL (1.3-7.7); Neutrophils % (A) 93 %; Platelet Count 275 k/uL (150-450); RBC 3.05 m/uL (3.80-5.40)
[2020-03-08 05:13] LABS: C Reactive Protein 366.8 mg/L (<10.0)
[2020-03-08 05:59] LABS: Glucose,Whole Blood 107 mg/dL (75-99)
--- NOTE | 2020-03-08 07:06 | XR ---
EXAMINATION TYPE: XR chest 1V portable DATE OF EXAM: 03/08/2020 COMPARISON: 03/07/2020 HISTORY: SOB, Follow Up FINDINGS: Indwelling tubes and catheters are unchanged. Stable perihilar and left lower lobe infiltrates. Stable appearance of the cardio-mediastinal structures at this time. Pleural effusion unchanged. IMPRESSION: 1. Stable portable chest. Clinical correlation and follow up until resolution is recommended.
--- NOTE | 2020-03-08 07:27 | P.CONS ---
History of Present Illness - Reason for Consult Consult date: 03/07/20 Necrotizing pancreatitis Requesting physician: Shubham Aggarwal - Chief Complaint Weakness, confusion, shortness of breath - History of Present Illness 64-year-old female with a medical history significant for closed head injury, tobacco abuse and hypertension who initially presented to the hospital on 02/26/2020 and has been receiving treatment for pancreatitis, pneumonia and urinary tract infection. The patient had an episode of aspiration which was felt to be secondary to ileus in the setting of her gallstone pancreatitis and was subsequently intubated and remains in the intensive care unit where she requires ventilatory and pressor support. Computed tomography scan on 03/06/2020 was significant for findings consistent with pancreatitis with possible progression and pancreatic necrosis not excluded as well as findings of ileus, cholelithiasis, bilateral pleural effusions. Other laboratory evaluation significant for a WBC which is trending down at 35.1 from 40 previously, hemoglobin 9.7, platelet count 292,000, total bilirubin 0.3, alkaline phosphatase 88, AST 35 and ALT 18. The gastroenterology service was consult for discussion with the patient regarding overall prognosis as the patients sister and the POA requested a consult for further conversation regarding her sister's care. Review of Systems ROS unobtainable: due to endotracheal tube, due to mental status Past Medical History Past Medical History: Cancer, Hypertension Additional Past Medical History / Comment(s): closed head injury History of Any Multi-Drug Resistant Organisms: None Reported Additional Past Surgical History / Comment(s): left breast surgery, thyroid removed Past Psychological History: No Psychological Hx Reported Smoking Status: Current every day smoker Past Alcohol Use History: Daily Past Drug Use History: None Reported Additional History: Family history: Reviewed and noncontributory to current medical presentation. Medications and Allergies Home Medications Medication Instructions Recorded Confirmed Type Acetaminophen [Tylenol] 650 mg PO TID@0800,1400,199902/26/20 02/26/20 History Atorvastatin Calcium [Lipitor] 40 mg PO HS@199902/26/20 02/26/20 History Calcium Carbonate/Vitamin D3 1 tab PO BID@0800,1400 02/26/20 02/26/20 History [Calcium 600-Vit D3 400 Tablet] Chlorhexidine Gluconate [Peridex] 15 ml PO BID@0800,199902/26/20 02/26/20 History Enalapril Maleate [Vasotec] 10 mg PO HS@199902/26/20 02/26/20 History FLUoxetine HCL [PROzac] 20 mg PO DAILY@79902/26/20 02/26/20 History Imipramine [Tofranil] 10 mg PO TID@0800,1399,199902/26/20 02/26/20 History Levothyroxine Sodium 200 mcg PO DAILY@79902/26/20 02/26/20 History Multivitamins, Thera [Multivitamin 1 tab PO DAILY@79902/26/20 02/26/20 History (formulary)] Niacin [Niacin ER] 500 mg PO HS@199902/26/20 02/26/20 History Nystatin [Nystop] 1 applic TOPICAL BID PRN 02/26/20 02/26/20 History Oxybutynin ER [Ditropan Xl] 15 mg PO HS@199902/26/20 02/26/20 History Allergies Allergy/AdvReac Type Severity Reaction Status Date / Time No Known Allergies Allergy Verified 02/26/20 22:22 Physical Exam Vitals: Vital Signs Temp Pulse Resp BP Pulse Ox 03/07/20 19:17 78 03/07/20 19:04 75 03/07/20 19:00 75 21 98 03/07/20 18:00 75 23 98 03/07/20 17:00 75 20 97 03/07/20 16:02 76 03/07/20 16:00 97.7 F 76 23 98 03/07/20 15:48 74 03/07/20 15:00 77 22 98 03/07/20 14:00 78 21 96 03/07/20 13:00 79 21 96 03/07/20 12:00 97.9 F 77 23 96 03/07/20 11:41 75 03/07/20 11:29 75 03/07/20 11:00 76 21 97 03/07/20 10:00 79 22 97 03/07/20 09:00 78 21 97 03/07/20 08:29 77 03/07/20 08:16 78 03/07/20 08:00 98 F 79 23 97 03/07/20 07:00 78 26 H 95/54 97 03/07/20 06:00 79 26 H 108/57 95 03/07/20 05:00 80 26 H 108/57 94 L 03/07/20 04:00 98.4 F 81 26 H 104/54 98 03/07/20 03:00 78 26 H 97 03/07/20 02:00 77 26 H 97 03/07/20 01:00 76 26 H 104/54 97 03/07/20 00:00 98.1 F 79 26 H 98 03/06/20 23:42 80 98 03/06/20 23:00 77 26 H 97 03/06/20 22:00 78 26 H 96 03/06/20 21:00 79 26 H 95 Intake and Output 03/07/20 03/07/20 03/07/20 06:59 14:59 22:59 Intake Total 683.859 724 276.39 Output Total 1505 395 755 Balance -821.141 329 -478.61 Intake: IV 424 624 265 0.9NS flush 24 24 15 Calcium Gluconate 1 gm 240 240 150 Sodium Acetate 30 meq Magnesium Sulfate 5 meq Mvi, Adult No.4 with Vit K 10 ml Trace (Conc-1Ml/ Dose) 1 ml Potassium Phosphate 15 mmol In Amino Acid 5%-D15w 1,000 ml @ 30 mls/hr IV .Q24H DEB[facility]AH Rx#:[id number] Meropenem 2 gm In Sodium 100 Chloride 0.9% 100 ml @ 33 .333 mls/hr IVPB Q12H [facility] Rx#:[id number] Potassium Chloride 10 meq 100 In Water For Injection 1 100ml.bag @ 100 mls/hr IVPB Q1H DEBOR[facility] Rx#: [id number] Sodium Chloride 0.9% 1, 160 160 100 000 ml @ 100 mls/hr IV . Q10H DEB[facility] Rx#:[id number] Intake, IV Titration 259.859 100 11.39 Amount Norepinephrine 32 mg In 59.859 11.39 Sodium Chloride 0.9% 218 ml @ 0.05 MCG/KG/MIN 2. 245 mls/hr IV .Q24H [facility]BORAH Rx#:[id number] propofoL 1,000 mg In 200 100 Empty Bag 1 bag @ Titrate IV .Q0M DEBORAH Rx#: [id number] Output: Gastric Drainage 900 500 Urine 605 395 255 Other: Voiding Method Indwelling Catheter Indwelling Catheter Indwelling Catheter Weight 104.5 kg ABP, PAP, CO, CI - Last 8 Hours Arterial Blood Pressure 131/53 Arterial Blood Pressure 131/51 Arterial Blood Pressure 103/50 Arterial Blood Pressure 99/47 Arterial Blood Pressure 123/49 Arterial Blood Pressure 115/45 Arterial Blood Pressure 112/44 On physical examination, patient appears comfortable in no apparent distress. HEAD: Normocephalic, atraumatic. EYES: No scleral icterus. No conjunctival injection. MOUTH: No lesions, tongue midline, endotracheal tube in place. NECK: Trachea midline, no gross abnormalities. CHEST: Coarse restaurant [employer] is all peña secondary to mechanical ventilation. HEART: S1-S2 appreciated. ABDOMEN: Soft, obese and nontender to palpation. Bowel sounds are positive. No organomegaly. No guarding or rigidity. EXTREMITIES: Bilateral pedal edema. SKIN: No rashes, no jaundice. NEUROLOGIC: Intubated and sedated. Results CBC & Chem 7: 03/08/20 04:10 03/08/20 04:10 Labs: Abnormal Lab Results - Last 24 Hours (Table) 03/07/20 03/07/20 03/07/20 Range/Units 04:25 04:25 05:01 WBC 35.1 H (3.8-10.6) k/uL RBC 2.98 L (3.80-5.40) m/uL Hgb 9.7 L (11.4-16.0) gm/dL Hct 30.1 L (34.0-46.0) % MCV 101.3 H (80.0-100.0) fL Neutrophils # 33.2 H (1.3-7.7) k/uL Lymphocytes # 0.5 L (1.0-4.8) k/uL Basophils # 0.4 H (0-0.2) k/uL ABG pO2 69 L (83-108) mmHg Sodium 134 L (137-145) mmol/L Chloride 109 H (98-107) mmol/L BUN 29 H (7-17) mg/dL Creatinine 1.29 H (0.52-1.04) mg/dL Glucose 106 H (74-99) mg/dL POC Glucose (mg/dL) (75-99) mg/dL Calcium 7.4 L (8.4-10.2) mg/dL 03/07/20 03/07/20 Range/Units 11:52 17:41 WBC (3.8-10.6) k/uL RBC (3.80-5.40) m/uL Hgb (11.4-16.0) gm/dL Hct (34.0-46.0) % MCV (80.0-100.0) fL Neutrophils # (1.3-7.7) k/uL Lymphocytes # (1.0-4.8) k/uL Basophils # (0-0.2) k/uL ABG pO2 (83-108) mmHg Sodium (137-145) mmol/L Chloride (98-107) mmol/L BUN (7-17) mg/dL Creatinine (0.52-1.04) mg/dL Glucose (74-99) mg/dL POC Glucose (mg/dL) 102 H 106 H (75-99) mg/dL Calcium (8.4-10.2) mg/dL Microbiology - Last 24 Hours (Table) 03/01/20 14:50 Blood Culture - Final Blood No Growth after [address] scan - abdomen: report reviewed (Computed tomography scan on 03/06/2020 was significant for findings consistent with pancreatitis with possible progression and pancreatic necrosis not excluded as well as findings of ileus, cho lelithiasis, bilateral pleural effusions.) Assessment and Plan (1) Gallstone pancreatitis Narrative/Plan: This is 64-year-old female with multiple medical comorbidities who presented due to weakness and confusion and was receiving care for suspected gallstone pancreatitis. The patient's care was complicated by ileus resulting in vomiting and aspiration with the patient requiring intubation, and currently in the ICU receiving care. Recent Computed tomography scan on 03/06/2020 was significant for findings consistent with pancreatitis with possible progression and pancreatic necrosis not excluded as well as findings of ileus, cholelithiasis, bilateral pleural effusions. The patient has had a significant leukocytosis, however her numbers are trending down and she remains afebrile. Current Visit: Yes Status: Acute Code(s): K85.10 - BILIARY ACUTE PANCREAT ITIS WITHOUT NECROSIS OR INFECTION SNOMED Code(s): 85713271 (2) Aspiration pneumonia due to gastric secretions Current Visit: Yes Status: Acute Code(s): J69.0 - PNEUMONITIS DUE TO INHALATION OF FOOD AND VOMIT SNOMED Code(s): 75414992 Plan: Supportive care Continue ICU management Case discussed with the infectious disease and surgical service Continue antibiotics as per recommendations by infectious disease Continue mechanical ventilation as per the patrol sergeant service Extensive discussion with the patient's sister/DPOA with all of her questions answered to her satisfaction, agree with the recommendations by the other consulting services with decision to be made as to whether the patient will undergo tracheostomy and PEG tube placement for continued medical management or if comfort measure will be sought Thank you for allowing us to participate in the care of the patient, we will continue to follow
[2020-03-08] MEDS: IPRATROPIUM-ALBUTEROL 3 ML NEB INHALATION SCH ×4 (08:13→20:06)
[2020-03-08] MEDS: NOREPINEPHRINE 32 MG in SODIUM CHLORIDE 0.9% 218 ML IV SCH (09:21)
[2020-03-08] MEDS: INSULIN ASPART (NovoLOG) 100 UNIT/ML VIAL SQ SCH (09:22)
[2020-03-08 09:53] VITALS: BP 114/73; TEMP 98.4
[2020-03-08] MEDS: IMIPRAMINE 10 MG TAB PO SCH (10:01)
[2020-03-08] MEDS: CHLORHEXIDINE GLUCONATE 15 ML CUP MUCOUS MEM SCH (10:01)
[2020-03-08] MEDS: FLUoxetine HCL 20 MG CAP PO SCH (10:01)
[2020-03-08] MEDS: PANTOPRAZOLE 40 MG/10 ML VIAL IVP SCH (10:01)
[2020-03-08] MEDS: LEVOTHYROXINE 100 MCG TAB PO SCH (10:01)
[2020-03-08] MEDS: MEROPENEM 2 GM in SODIUM CHLORIDE 0.9% 100 ML IVPB SCH (10:02)
[2020-03-08] MEDS: ANIDULAFUNGIN 100 MG in SODIUM CHLORIDE 0.9% 100 ML IVPB SCH (10:02)
--- NOTE | 2020-03-08 10:29 | PN ---
PROGRESS NOTE PULMONARY/CRITICAL CARE PROGRESS NOTE: DATE OF SERVICE: 03/08/2020 CRITICAL CARE TIME: 33 minutes. This is a 64-year-old female who was admitted back on February 25. She initially came in on. She initially came in with pancreatitis, pneumonia and urinary tract infection. Five days later on 03/02, she was intubated because of large volume aspiration. The patient is currently still on the mechanical ventilator. She is on the pressure regulated volume control modality or VC plus modality. Her targeted tidal volume is 350 mL, her inspiratory time is 0.8 seconds. Her FiO2 is 55%, PEEP of 8, rate 26 breaths per minute. The patient is getting saline at 20 mL an hour, propofol at 50 mcg/kg per minute and norepinephrine at 4.1 mcg/minute. She is also getting TPN at 30 mL an hour. There was some talk by the family that they would want to make her comfort measures only patient. That has not been fully decided as yet. Currently, the patient really has not made any progress. The family was though adamant about no tracheostomy or PEG tube placement down the road. Currently, not a surgical candidate according to Dr. Aggarwal. She continues on antibiotics in the form of Eraxis and meropenem. I did have a conversation with the sister, Yue 2 days ago. Current vital signs are reviewed. Temperature is 98.8, heart rate 80, respiratory rate 26, blood pressure 159/56, saturation 97%. Appears in no acute distress, currently sedated on propofol at 50 mcg/kg per minute. HEENT: Examination is grossly unremarkable. There is no orally placed endotracheal tube and NG tube. NECK: Supple, full range of motion. No adenopathy. No neck vein distention. No adenopathy or thyromegaly. CARDIOVASCULAR: Examination reveals regular rhythm and rate. Heart rate 80 beats per minute. S1, S2 normal. Heart sounds are distant. No distinct murmur. LUNGS: Reveal diffuse coarse rhonchi. Breath sounds equal. No crackles or wheezes. ABDOMEN: Soft. No bowel sounds. EXTREMITIES: Intact. Mild edema. SKIN: Without rash. NEUROLOGIC: Examination is difficult to assess. LABS: Reviewed. White count 29, hemoglobin 9.8, hematocrit 31.3, platelet count 275,000. Sodium 139, potassium 4.1, chloride is 110, CO2 is 23, anion gap is 6. BUN and creatinine were 28 and 1.12. Microbiology showing E coli in the urine from February 25. There was Chastity albicans in the sputum from March 04. A chest x-ray today shows diffuse bilateral infiltrates, unchanged from the prior day. MEDICATIONS: Reviewed. The patient is on Tylenol, TPN, Eraxis, chlorhexidine, Prozac, Dilaudid, Tofranil, insulin, DuoNeb, levothyroxine, meropenem, Narcan, norepinephrine, nystatin, Protonix, potassium replacement, and propofol. ASSESSMENT: 1. Acute hypoxemic respiratory failure secondary to aspiration pneumonia, septic shock, with gram-negative bacteremia, gallstone pancreatitis, and E. coli urinary tract infection, which required intubation and mechanical ventilation on March 02, subsequent failure to wean. 2. Abdominal sepsis. 3. Hypoxemic respiratory failure with intubation/mechanical ventilation on March 02. 4. History of closed head injury. 5. Acute kidney injury. 6. Escherichia coli urinary tract infection/urosepsis. 7. Benign essential hypertension. PLAN: Currently, the family is pondering possibly making the patient a comfort measures only patient. They have not made a firm decision as yet. I did speak to the surgeon. She is not a surgical candidate at this time. The patient did not tolerate tube feeds on multiple attempts. She remains on TPN at 30 mL an hour. Other medications include propofol at 50 mcg/kg per minute, norepinephrine at 4.1 mcg/minute. She is currently on pressure regulated volume control ventilation. She has not made any movement towards weaning and extubation. Additional recommendations and suggestions are forthcoming. Gastroenterology did see the patient. No additional recommendations are made. Prognosis is very poor. Will continue to follow. CRITICAL CARE TIME: 33 minutes. MMODL / IJN: [id number] /
[2020-03-08] MEDS ORDERED: ATROPINE OPHTH SOLN 1% 5ML BTL SUBLINGUAL PRN (10:48)
[2020-03-08] MEDS ORDERED: ONDANSETRON 4 MG/2 ML VIAL IVP PRN (10:48)
[2020-03-08] MEDS ORDERED: ARTIFICIAL TEARS-HYPROMELLOSE DROPS 15 ML BTL BOTH EYES PRN (10:48)
[2020-03-08] MEDS ORDERED: MORPHINE SULFATE 2 MG/ML SYRINGE IV PRN (10:48)
[2020-03-08] MEDS ORDERED: MORPHINE SULFATE 4 MG/ML SYRINGE IV PRN (10:48)
[2020-03-08] MEDS ORDERED: MORPHINE SULFATE (100 MG/2 ML) 100 MG in SODIUM CHLORIDE 0.9% 100 ML IV SCH (11:00)
[2020-03-08] MEDS ORDERED: SCOPOLAMINE 1.5MG/72HR PATCH TRANSDERM SCH (11:00)
--- NOTE | 2020-03-08 11:27 | PN ---
PROGRESS NOTE DATE OF SERVICE: 03/08/2020 REASON FOR FOLLOWUP: Sepsis secondary to severe pancreatitis. INTERVAL HISTORY: The patient is seen on rounds this morning. The patient has been afebrile. She has been stable. The patient remains to be intubated on the vent. FiO2 is currently at 55%. No vomiting, no diarrhea. PHYSICAL EXAMINATION: Blood pressure temperature 98.4. she is 98% on 55% FiO2. General description is an elderly female, intubated on the vent. RESPIRATORY SYSTEM: Unlabored breathing. ABDOMEN: Soft, no tenderness. LABS: Hemoglobin 9.9, white count of 29, BUN of 28, creatinine 1.12. DIAGNOSTIC IMPRESSION AND PLAN: Patient admitted to the [facility] with sepsis from severe pancreatitis . The patient white count showing a downward trend. Kidney function has improved; however, the family is leaning towards comfort oriented. Will follow the family whishes. Antibiotic can be safely discontinued. MMODL / IJN: [id number] /
[2020-03-08 11:47] VITALS: PULSE 81; RESP 24
[2020-03-08 11:54] VITALS: BMI 39.5
--- NOTE | 2020-03-09 14:35 | DS ---
DISCHARGE SUMMARY CHIEF COMPLAINT: Urinary tract and infection, pancreatitis, cholelithiasis and cholecystitis. HISTORY OF PRESENT ILLNESS AND PHYSICAL EXAMINATION: Details of this lady's history and physical can be found in the initial workup. LABORATORY STUDIES: While she was in the hospital, she had laboratory studies, details of which can be found in the laboratory section of her chart. COURSE IN THE HOSPITAL: After admission, she was placed on bedrest and started on intravenous fluids in management of her pancreatitis. However, her white count remained high and continued to rise. She started to have more upper abdominal pain and was found to have a large stone in the gallbladder and probable cholelithiasis along with her pancreatitis. She slowly continued to deteriorate and became septic and was taken to ICU. She was then placed on a ventilator, but her condition continued to deteriorate. Case was discussed with the family (sister) who made the decision to take her off the ventilator with terminal wean and referred to hospice. She later that evening on March 08. FINAL DIAGNOSES: 1. Acute pancreatitis. 2. Cholecystitis. 3. Cholelithiasis. 4. Aspiration pneumonia. 5. Respiratory distress syndrome. 6. Respiratory failure. 7. Prior closed head injury with left hemiparesis. OPERATIONS: None. CONSULTATIONS: General Surgery and Intensive Medicine/pulmonology. MMODL / IJN: [id number] /
== END 2020-03-08 19:11 | disposition expired | DRG 870 ==
LOC: SUPCPDRO 18:19 → EC 18:19 → 4SSUR 22:54 → 3SCARD 02-29 16:43 → 3NCARDOBS 03-01 19:57 → 3SCARD 03-01 19:57 → 2SICU 03-02 10:54 → 4SSUR 03-08 17:28
PROVIDERS: ADMIT Family Medicine; ATTEND Family Medicine
PROC: 5A1955Z Respiratory Ventilation, Greater than 96 Consecutive Hours (ICD-10-PCS; principal; 2020-03-02)
PROC: 0BH17EZ Insertion of Endotracheal Airway into Trachea, Via Natural or Artificial Opening (ICD-10-PCS; principal; 2020-03-02)
PROC: 4A133B1 Monitoring of Arterial Pressure, Peripheral, Percutaneous Approach (ICD-10-PCS; principal; 2020-03-02)
PROC: 4A133J1 Monitoring of Arterial Pulse, Peripheral, Percutaneous Approach (ICD-10-PCS; principal; 2020-03-02)
PROC: 03HY32Z Insertion of Monitoring Device into Upper Artery, Percutaneous Approach (ICD-10-PCS; principal; 2020-03-02)
PROC: 0D9670Z Drainage of Stomach with Drainage Device, Via Natural or Artificial Opening (ICD-10-PCS; principal; 2020-03-02)
PROC: 5A09357 Assistance with Respiratory Ventilation, Less than 24 Consecutive Hours, Continuous Positive Airway Pressure (ICD-10-PCS; 2020-03-02)
PROC: 02HV33Z Insertion of Infusion Device into Superior Vena Cava, Percutaneous Approach (ICD-10-PCS; 2020-03-03)
PROC: 3E043XZ Introduction of Vasopressor into Central Vein, Percutaneous Approach (ICD-10-PCS; 2020-03-03)
PROC: 3E0G76Z Introduction of Nutritional Substance into Upper GI, Via Natural or Artificial Opening (ICD-10-PCS; 2020-03-06)
DX: A41.50 Gram-negative sepsis, unspecified (principal); J69.0 Pneumonitis due to inhalation of food and vomit; J80 Acute respiratory distress syndrome; J18.0 Bronchopneumonia, unspecified organism; R65.21 Severe sepsis with septic shock; K65.1 Peritoneal abscess; K85.12 Biliary acute pancreatitis with infected necrosis; J90 Pleural effusion, not elsewhere classified; K80.00 Calculus of gallbladder with acute cholecystitis without obstruction; N17.9 Acute kidney failure, unspecified; K56.7 Ileus, unspecified; G81.94 Hemiplegia, unspecified affecting left nondominant side; N39.0 Urinary tract infection, site not specified; J98.11 Atelectasis; R47.01 Aphasia; S06.9X0S Unspecified intracranial injury without loss of consciousness, sequela; F07.81 Postconcussional syndrome; I11.9 Hypertensive heart disease without heart failure; Z66 Do not resuscitate; Z51.5 Encounter for palliative care; Z20.828 Contact with and (suspected) exposure to other viral communicable diseases; E86.1 Hypovolemia; R40.2142 Coma scale, eyes open, spontaneous, at arrival to emergency department; R40.2362 Coma scale, best motor response, obeys commands, at arrival to emergency department; R40.2243 Coma scale, best verbal response, confused conversation, at hospital admission; G31.84 Mild cognitive impairment of uncertain or unknown etiology; B96.20 Unspecified Escherichia coli [E. coli] as the cause of diseases classified elsewhere; K57.30 Diverticulosis of large intestine without perforation or abscess without bleeding; E66.3 Overweight; Z68.39 Body mass index [BMI] 39.0-39.9, adult; F17.210 Nicotine dependence, cigarettes, uncomplicated; Z53.9 Procedure and treatment not carried out, unspecified reason; Z79.890 Hormone replacement therapy; Z79.899 Other long term (current) drug therapy; Z87.820 Personal history of traumatic brain injury; Z87.2 Personal history of diseases of the skin and subcutaneous tissue; Z80.9 Family history of malignant neoplasm, unspecified
CPT/HCPCS: 36415; 36600; 71045; 71046; 71275; 74176; 74177; 76705; 80048; 80053; 80076; 81001; 82150; 82330; 82805; 83605; 83690; 83735; 83880; 84100; 84132; 84478; 84484; 85025; 85379; 85610; 85730; 86140; 87040; 87070; 87077; 87086; 87186; 87205; 93005; 93306; 94002; 94003; 94640; 94760; 96361; 96365; 99285